=== PATIENT | female | born 1990 | race Caucasian/White ===

== ENCOUNTER 2016-11-13 22:16 | Emergency (ER) | payer OTHER ==
[~2016-11-13] VITALS: Ht 177.8 cm; Wt 98.4 kg
[~2016-11-13 22:16] MED LIST: ALBU8.5H4 IH; AMOX-355 PO; ANTACID; BUTA-234 PO; CAMP85GE TP; CEPH500C PO; CETI10CA PO; CODE118S2 PO; COLE1TAB PO; CPR500T PO; CYCL10TA9 PO; FLT05NA16 NSEACH; FOLI-88 PO; HYDR1TAB PO; METF-380 PO; MTF500T PO; Motrin PO; NAPR-243 PO; NASAL SPRAY; NITR-65 PO; PHEN200T27 PO; PREN1TAB19 PO; SUMA25TA4 PO; TRAM-42 PO; YAZ PO
--- OUTSIDE RECORDS SUMMARY | 2016-11-13 22:24 | XMS REPORT | Continuity of Care Document ---
Author Author [facility] Address Unknown Phone Unavailable Allergies Active Description Code Type Severity Reaction Onset Reported/Identified Relationship to Patient Clinical Status Yes NATURAL LATEX OA 02/08/2010 Yes NATURAL LATEX OA N/A N/A 02/08/2010 Yes Glucophage 1,000 mg tablet Drug Allergy N/A N/A 09/18/2013 Yes latex [id number] Drug Allergy Unknown N/A 05/20/2014 Yes acetaminophen [id number] Drug Allergy Unknown CONFUSION 05/21/2014 Yes butalbital [id number] Drug Allergy Unknown CONFUSION 05/21/2014 Yes caffeine [id number] Drug Allergy Unknown CONFUSION 05/21/2014 Medications Problems Date Dx Coded Attending Type Code Diagnosis Diagnosed By 11/21/2007 MARTI PEARL APRN R 463 TONSILLITIS 11/21/2007 MARTI PEARL APRN R 477.9 Rhinitis Allergic 11/21/2007 MARTI PEARL APRN R 786.2 Cough 11/21/2007 463 TONSILLITIS 11/21/2007 477.9 Rhinitis Allergic 11/21/2007 786.2 Cough 11/21/2007 463 TONSILLITIS 11/21/2007 477.9 Rhinitis Allergic 11/21/2007 786.2 Cough 11/21/2007 CUMMINGS DO ELISEO K 463 TONSILLITIS 11/21/2007 CUMMINGS DO, ELISEO K 477.9 Rhinitis Allergic 11/21/2007 CUMMINGS DO, ELISEO K 786.2 Cough 11/21/2007 FAYE CHAIDEZ APRN 463 TONSILLITIS 11/21/2007 FAYE CHAIDEZ APRN 477.9 Rhinitis Allergic 11/21/2007 FAYE CHAIDEZ APRN 786.2 Cough 11/21/2007 MARTI PEARL APRN R 463 TONSILLITIS 11/21/2007 MARTI PEARL APRN 477.9 Rhinitis Allergic 11/21/2007 MARTI PEARL APRN 786.2 Cough 11/21/2007 FAYE CHAIDEZ APRN T 463 TONSILLITIS 11/21/2007 KAYLYNN FAYE WINSTON T 477.9 Rhinitis Allergic 11/21/2007 KAYLYNN SECURITY SYSTEM ADMINISTRATOR, FAYE T 786.2 Cough 11/21/2007 LEANDRO PEARL APRNRICIA R 463 TONSILLITIS 11/21/2007 PEARL SECURITY SYSTEM ADMINISTRATOR, MARTI R 477.9 Rhinitis Allergic 11/21/2007 PEARL SECURITY SYSTEM ADMINISTRATOR, MARTI R 786.2 Cough 11/21/2007 COSTA CASHERO SECURITY SYSTEM ADMINISTRATOR, MICHELE N 463 TONSILLITIS 11/21/2007 COSTA CASHERO SECURITY SYSTEM ADMINISTRATOR, MICHELE N 477.9 Rhinitis Allergic 11/21/2007 COSTA CASHERO SECURITY SYSTEM ADMINISTRATOR, MICHELE N 786.2 Cough 11/21/2007 HUONG MURPHY MD 463 TONSILLITIS 11/21/2007 HUONG MURPHY MD 477.9 Rhinitis Allergic 11/21/2007 HUONG MURPHY MD 786.2 Cough 11/21/2007 SELAM SECURITY SYSTEM ADMINISTRATOR, JOHNNY A 463 TONSILLITIS 11/21/2007 SELAM SECURITY SYSTEM ADMINISTRATOR, JOHNNY A 477.9 Rhinitis Allergic 11/21/2007 SELAM SECURITY SYSTEM ADMINISTRATOR, JOHNNY A 786.2 Cough 11/21/2007 CUMMINGS DO, ELISEO K 463 TONSILLITIS 11/21/2007 CUMMINGS DO, ELISEO K 477.9 Rhinitis Allergic 11/21/2007 CUMMINGS DO, ELISEO K 786.2 Cough 11/21/2007 CUMMINGS DO, ELISEO K 463 TONSILLITIS 11/21/2007 CUMMINGS DO, ELISEO K 477.9 Rhinitis Allergic 11/21/2007 CUMMINGS DO, ELISEO K 786.2 Cough 11/21/2007 CB OROSCO APRN 463 TONSILLITIS 11/21/2007 OROSCO CB WINSTON 477.9 Rhinitis Allergic 11/21/2007 OROSCO CB WINSTON 786.2 Cough 11/21/2007 CUMMINGS DO, ELISEO K 463 TONSILLITIS 11/21/2007 CUMMINGS DO, ELISEO K 477.9 Rhinitis Allergic 11/21/2007 CUMMINGS DO, ELISEO K 786.2 Cough 02/20/2008 LEANDRO PEARL APRNRICIA R 787.20 Dysphagia Unspecified 02/20/2008 787.20 Dysphagia Unspecified 02/20/2008 787.20 Dysphagia Unspecified 02/20/2008 CUMMINGS DO, ELISEO K 787.20 Dysphagia Unspecified 02/20/2008 FAYE CHAIDEZ APRN T 787.20 Dysphagia Unspecified 02/20/2008 MARTI PEARL APRN R 787.20 Dysphagia Unspecified 02/20/2008 FAYE CHAIDEZ APRN T 787.20 Dysphagia Unspecified 02/20/2008 MARTI PEARL APRN R 787.20 Dysphagia Unspecified 02/20/2008 MICHELE FREDERICK APRN N 787.20 Dysphagia Unspecified 02/20/2008 HUONG MURPHY MD 787.20 Dysphagia Unspecified 02/20/2008 JOHNNY DOSS APRN A 787.20 Dysphagia Unspecified 02/20/2008 CUMMINGS DO, ELISEO K 787.20 Dysphagia Unspecified 02/20/2008 CUMMINGS DO, ELISEO K 787.20 Dysphagia Unspecified 02/20/2008 CB OROSCO APRN 787.20 Dysphagia Unspecified 02/20/2008 CUMMINGS DO, ELISEO K 787.20 Dysphagia Unspecified 03/20/2008 MARTI PEARL APRN R 251.1 PANCREATIC B ISLET CELL HYPERPLASIA 03/20/2008 251.1 PANCREATIC B ISLET CELL HYPERPLASIA 03/20/2008 251.1 PANCREATIC B ISLET CELL HYPERPLASIA 03/20/2008 CUMMINGS DO, ELISEO K 251.1 PANCREATIC B ISLET CELL HYPERPLASIA 03/20/2008 FAYE CHAIDEZ APRN T 251.1 PANCREATIC B ISLET CELL HYPERPLASIA 03/20/2008 MARTI PEARL APRN R 251.1 PANCREATIC B ISLET CELL HYPERPLASIA 03/20/2008 FAYE CHAIDEZ APRN 251.1 PANCREATIC B ISLET CELL HYPERPLASIA 03/20/2008 MARTI PEARL APRN R 251.1 PANCREATIC B ISLET CELL HYPERPLASIA 03/20/2008 MICHELE FREDERICK APRN N 251.1 PANCREATIC B ISLET CELL HYPERPLASIA 03/20/2008 HUONG MURPHY MD 251.1 PANCREATIC B ISLET CELL HYPERPLASIA 03/20/2008 JOHNNY DOSS APRN A 251.1 PANCREATIC B ISLET CELL HYPERPLASIA 03/20/2008 CUMMINGS DO, ELISEO K 251.1 PANCREATIC B ISLET CELL HYPERPLASIA 03/20/2008 CUMMINGS DO, ELISEO K 251.1 PANCREATIC B ISLET CELL HYPERPLASIA 03/20/2008 CB OROSCO APRN 251.1 PANCREATIC B ISLET CELL HYPERPLASIA 03/20/2008 CUMMINGS ELISEO SHEPHERD K 251.1 PANCREATIC B ISLET CELL HYPERPLASIA 05/01/2008 MARTI PEARL APRN R 462 Pharyngitis Acute 05/01/2008 462 Pharyngitis Acute 05/01/2008 462 Pharyngitis Acute 05/01/2008 CUMMINGS DO ELISEO K 462 Pharyngitis Acute 05/01/2008 FAYE CHAIDEZ APRN 462 Pharyngitis Acute 05/01/2008 MARTI PEARL APRN R 462 Pharyngitis Acute 05/01/2008 FAYE CHAIDEZ APRN 462 Pharyngitis Acute 05/01/2008 MARTI PEARL APRN 462 Pharyngitis Acute 05/01/2008 MICHELE FREDERICK APRN 462 Pharyngitis Acute 05/01/2008 HUONG MURPHY MD 462 Pharyngitis Acute 05/01/2008 JOHNNY DOSS APRN 462 Pharyngitis Acute 05/01/2008 CUMMINGS DO, ELISEO K 462 Pharyngitis Acute 05/01/2008 CUMMINGS DO, ELISEO K 462 Pharyngitis Acute 05/01/2008 CB OROSCO APRN 462 Pharyngitis Acute 05/01/2008 CUMMINGS DO, ELISEO K 462 Pharyngitis Acute 08/07/2008 MARTI PEARL APRN R 845.00 Sprain/strain Ankle 08/07/2008 845.00 Sprain/strain Ankle 08/07/2008 845.00 Sprain/strain Ankle 08/07/2008 AIME CUMMINGS DOA K 845.00 Sprain/strain Ankle 08/07/2008 FAYE CHAIDEZ APRN 845.00 Sprain/strain Ankle 08/07/2008 MARTI PEARL APRN 845.00 Sprain/strain Ankle 08/07/2008 FAYE CHAIDEZ APRN 845.00 Sprain/strain Ankle 08/07/2008 MARTI PEARL APRN 845.00 Sprain/strain Ankle 08/07/2008 MICHELE FREDERICK APRN N 845.00 Sprain/strain Ankle 08/07/2008 HUONG MURPHY MD 845.00 Sprain/strain Ankle 08/07/2008 SELAMJOHNNY Franklin APRN 845.00 Sprain/strain Ankle 08/07/2008 ELISEO CUMMINGS DO K 845.00 Sprain/strain Ankle 08/07/2008 CUMMINGS ELISEO SHEPHERD K 845.00 Sprain/strain Ankle 08/07/2008 OROSCO CATRACHITO CB J 845.00 Sprain/strain Ankle 08/07/2008 ELISEO CUMMINGS DO K 845.00 Sprain/strain Ankle 12/07/2008 MARTI PEARL APRN R 626.4 irregular length of menstrual periods 12/07/2008 MARTI PEARL APRN R V25.49 Gynecologic Service Prescrip Of Contracept Agent - Repeat Rx 12/07/2008 626.4 irregular length of menstrual periods 12/07/2008 V25.49 Gynecologic Service Prescrip Of Contracept Agent - Repeat Rx 12/07/2008 626.4 irregular length of menstrual periods 12/07/2008 V25.49 Gynecologic Service Prescrip Of Contracept Agent - Repeat Rx 12/07/2008 ELISEO CUMMINGS DO 626.4 irregular length of menstrual periods 12/07/2008 ELISEO CUMMINGS DO V25.49 Gynecologic Service Prescrip Of Contracept Agent - Repeat Rx 12/07/2008 FAYE CHAIDEZ APRN 626.4 irregular length of menstrual periods 12/07/2008 FAYE CHAIDEZ APRN V25.49 Gynecologic Service Prescrip Of Contracept Agent - Repeat Rx 12/07/2008 MARTI PEARL APRN R 626.4 irregular length of menstrual periods 12/07/2008 MARTI PEARL APRN R V25.49 Gynecologic Service Prescrip Of Contracept Agent - Repeat Rx 12/07/2008 FAYE CHAIDEZ APRN 626.4 irregular length of menstrual periods 12/07/2008 FAYE CHAIDEZ APRN V25.49 Gynecologic Service Prescrip Of Contracept Agent - Repeat Rx 12/07/2008 MARTI PEARL APRN R 626.4 irregular length of menstrual periods 12/07/2008 MARTI PEARL APRN R V25.49 Gynecologic Service Prescrip Of Contracept Agent - Repeat Rx 12/07/2008 MICHELE FREDERICK APRN 626.4 irregular length of menstrual periods 12/07/2008 MICHELE FREDERICK APRN V25.49 Gynecologic Service Prescrip Of Contracept Agent - Repeat Rx 12/07/2008 HUONG MURPHY MD 626.4 irregular length of menstrual periods 12/07/2008 HUONG MURPHY MD V25.49 Gynecologic Service Prescrip Of Contracept Agent - Repeat Rx 12/07/2008 JOHNNY DOSS APRN A 626.4 irregular length of menstrual periods 12/07/2008 JOHNNY DOSS APRN V25.49 Gynecologic Service Prescrip Of Contracept Agent - Repeat Rx 12/07/2008 ELISEO CUMMINGS DO 626.4 irregular length of menstrual periods 12/07/2008 ELISEO CUMMINGS DO V25.49 Gynecologic Service Prescrip Of Contracept Agent - Repeat Rx 12/07/2008 ELISEO CUMMINGS DO 626.4 irregular length of menstrual periods 12/07/2008 ELISEO CUMMINGS DO V25.49 Gynecologic Service Prescrip Of Contracept Agent - Repeat Rx 12/07/2008 CB OROSCO APRN 626.4 irregular length of menstrual periods 12/07/2008 CB OROSCO APRN V25.49 Gynecologic Service Prescrip Of Contracept Agent - Repeat Rx 12/07/2008 ELISEO CUMMINGS DO 626.4 irregular length of menstrual periods 12/07/2008 ELISEO CUMMINGS DO V25.49 Gynecologic Service Prescrip Of Contracept Agent - Repeat Rx 01/16/2009 MARTI PEARL APRN R 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 01/16/2009 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 01/16/2009 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 01/16/2009 ELISEO CUMMINGS DO 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 01/16/2009 FAYE CHAIDEZ APRN 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 01/16/2009 MARTI PEARL APRN R 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 01/16/2009 FAYE CHAIDEZ APRN 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 01/16/2009 MARTI PEARL APRN R 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 01/16/2009 MICHELE FREDERICK APRN 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 01/16/2009 HUONG MURPHY MD 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 01/16/2009 JOHNNY DOSS APRN 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 01/16/2009 ELISEO CUMMINGS DO K 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 01/16/2009 ELISEO CUMMINGS DO K 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 01/16/2009 CB OROSCO APRN 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 01/16/2009 ELISEO CUMMINGS DO K 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 02/08/2009 MARTI PEARL APRN R 616.10 Vaginitis Vulvovaginitis Unspecified 02/08/2009 616.10 Vaginitis Vulvovaginitis Unspecified 02/08/2009 616.10 Vaginitis Vulvovaginitis Unspecified 02/08/2009 ELISEO CUMMINGS DO K 616.10 Vaginitis Vulvovaginitis Unspecified 02/08/2009 FAYE CHAIDEZ APRN 616.10 Vaginitis Vulvovaginitis Unspecified 02/08/2009 MARTI PEARL APRN R 616.10 Vaginitis Vulvovaginitis Unspecified 02/08/2009 FAYE CHAIDEZ APRN 616.10 Vaginitis Vulvovaginitis Unspecified 02/08/2009 MARTI PEARL APRN R 616.10 Vaginitis Vulvovaginitis Unspecified 02/08/2009 MICHELE FREDERICK APRN 616.10 Vaginitis Vulvovaginitis Unspecified 02/08/2009 HUONG MURPHY MD 616.10 Vaginitis Vulvovaginitis Unspecified 02/08/2009 JOHNNY DOSS APRN A 616.10 Vaginitis Vulvovaginitis Unspecified 02/08/2009 ELISEO CUMMINGS DO K 616.10 Vaginitis Vulvovaginitis Unspecified 02/08/2009 AIME CUMMINGS DOA K 616.10 Vaginitis Vulvovaginitis Unspecified 02/08/2009 CB OROSCO APRN 616.10 Vaginitis Vulvovaginitis Unspecified 02/08/2009 AIME CUMMINGS DOA K 616.10 Vaginitis Vulvovaginitis Unspecified 09/16/2009 MARTI PEARL APRN R 536.8 Dyspepsia And Other Specified Disorders Of Function Of Stomach 09/16/2009 536.8 Dyspepsia And Other Specified Disorders Of Function Of Stomach 09/16/2009 536.8 Dyspepsia And Other Specified Disorders Of Function Of Stomach 09/16/2009 ELISEO CUMMINGS DO 536.8 Dyspepsia And Other Specified Disorders Of Function Of Stomach 09/16/2009 FAYE CHAIDEZ APRN 536.8 Dyspepsia And Other Specified Disorders Of Function Of Stomach 09/16/2009 MARTI PEARL APRN R 536.8 Dyspepsia And Other Specified Disorders Of Function Of Stomach 09/16/2009 FAYE CHAIDEZ APRN 536.8 Dyspepsia And Other Specified Disorders Of Function Of Stomach 09/16/2009 MARTI PEARL APRN 536.8 Dyspepsia And Other Specified Disorders Of Function Of Stomach 09/16/2009 MICHELE FREDERICK APRN 536.8 Dyspepsia And Other Specified Disorders Of Function Of Stomach 09/16/2009 HUONG MURPHY MD 536.8 Dyspepsia And Other Specified Disorders Of Function Of Stomach 09/16/2009 JOHNNY DOSS APRN 536.8 Dyspepsia And Other Specified Disorders Of Function Of Stomach 09/16/2009 ELISEO CUMMINGS DO 536.8 Dyspepsia And Other Specified Disorders Of Function Of Stomach 09/16/2009 ELISEO CUMMINGS DO K 536.8 Dyspepsia And Other Specified Disorders Of Function Of Stomach 09/16/2009 CB OROSCO APRN 536.8 Dyspepsia And Other Specified Disorders Of Function Of Stomach 09/16/2009 ELISEO CUMMINGS DO 536.8 Dyspepsia And Other Specified Disorders Of Function Of Stomach 12/19/2009 MARTI PEARL APRN 493.90 Asthma, Unspecified, Unspecified 12/19/2009 493.90 Asthma, Unspecified, Unspecified 12/19/2009 493.90 Asthma, Unspecified, Unspecified 12/19/2009 ELISEO CUMMINGS DO 493.90 Asthma, Unspecified, Unspecified 12/19/2009 FAYE CHAIDEZ APRN 493.90 Asthma, Unspecified, Unspecified 12/19/2009 MARTI PEARL APRN 493.90 Asthma, Unspecified, Unspecified 12/19/2009 FAYE CHAIDEZ APRN 493.90 Asthma, Unspecified, Unspecified 12/19/2009 MARTI PEARL APRN 493.90 Asthma, Unspecified, Unspecified 12/19/2009 JULISSA PICHARDO APRN, MICHELE Franklin 493.90 Asthma, Unspecified, Unspecified 12/19/2009 KATHERINE DALE, HUONG 493.90 Asthma, Unspecified, Unspecified 12/19/2009 SELAM WINSTON, JOHNNY Mattson 493.90 Asthma, Unspecified, Unspecified 12/19/2009 ELISEO CUMMINGS DO 493.90 Asthma, Unspecified, Unspecified 12/19/2009 ELISEO CUMMINGS DO 493.90 Asthma, Unspecified, Unspecified 12/19/2009 KWESI WINSTON, CB Elias 493.90 Asthma, Unspecified, Unspecified 12/19/2009 LEISEO CUMMINGS DO K 493.90 Asthma, Unspecified, Unspecified 12/25/2009 MARTI PEARL APRN R 790.29 Other Abnormal Glucose 12/25/2009 MARTI PEARL APRN R V25.09 Encounter For Contraceptive Management, Other General Counseling And Advice 12/25/2009 MARTI PEARL APRN R V65.45 Counseling On Other Sexually Transmitted Diseases 12/25/2009 790.29 Other Abnormal Glucose 12/25/2009 V25.09 Encounter For Contraceptive Management, Other General Counseling And Advice 12/25/2009 V65.45 Counseling On Other Sexually Transmitted Diseases 12/25/2009 790.29 Other Abnormal Glucose 12/25/2009 V25.09 Encounter For Contraceptive Management, Other General Counseling And Advice 12/25/2009 V65.45 Counseling On Other Sexually Transmitted Diseases 12/25/2009 ELISEO CUMMINGS DO K 790.29 Other Abnormal Glucose 12/25/2009 AIME CUMMINGS DOA K V25.09 Encounter For Contraceptive Management, Other General Counseling And Advice 12/25/2009 AIME CUMMINGS DOA K V65.45 Counseling On Other Sexually Transmitted Diseases 12/25/2009 FAYE CHAIDEZ APRN 790.29 Other Abnormal Glucose 12/25/2009 FAYE CHAIDEZ APRN V25.09 Encounter For Contraceptive Management, Other General Counseling And Advice 12/25/2009 FAYE CHAIDEZ APRN V65.45 Counseling On Other Sexually Transmitted Diseases 12/25/2009 MARTI PEARL APRN 790.29 Other Abnormal Glucose 12/25/2009 DINESH PEARL APRNIA R V25.09 Encounter For Contraceptive Management, Other General Counseling And Advice 12/25/2009 MARTI PEARL APRN R V65.45 Counseling On Other Sexually Transmitted Diseases 12/25/2009 FAYE CHAIDEZ APRN 790.29 Other Abnormal Glucose 12/25/2009 FAYE CHAIDEZ APRN V25.09 Encounter For Contraceptive Management, Other General Counseling And Advice 12/25/2009 FAYE CHAIDEZ APRN V65.45 Counseling On Other Sexually Transmitted Diseases 12/25/2009 MARTI PEARL APRN R 790.29 Other Abnormal Glucose 12/25/2009 DINESH PEARL APRNIA R V25.09 Encounter For Contraceptive Management, Other General Counseling And Advice 12/25/2009 MARTI PEARL APRN R V65.45 Counseling On Other Sexually Transmitted Diseases 12/25/2009 MICHELE FREDERICK APRN N 790.29 Other Abnormal Glucose 12/25/2009 MICHELE FREDERICK APRN N V25.09 Encounter For Contraceptive Management, Other General Counseling And Advice 12/25/2009 MICHELE FREDERICK APRN N V65.45 Counseling On Other Sexually Transmitted Diseases 12/25/2009 HUONG MURPHY MD 790.29 Other Abnormal Glucose 12/25/2009 HUONG MURPHY MD V25.09 Encounter For Contraceptive Management, Other General Counseling And Advice 12/25/2009 HUONG MURPHY MD V65.45 Counseling On Other Sexually Transmitted Diseases 12/25/2009 JOHNNY DOSS APRN A 790.29 Other Abnormal Glucose 12/25/2009 JOHNNY DOSS APRN A V25.09 Encounter For Contraceptive Management, Other General Counseling And Advice 12/25/2009 JOHNNY DOSS APRN A V65.45 Counseling On Other Sexually Transmitted Diseases 12/25/2009 ZOILA SHEPHERD ELISEO K 790.29 Other Abnormal Glucose 12/25/2009 CUMMINGS DO ELISEO K V25.09 Encounter For Contraceptive Management, Other General Counseling And Advice 12/25/2009 ZOILA SHEPHERD ELISEO K V65.45 Counseling On Other Sexually Transmitted Diseases 12/25/2009 CUMMINGS DO ELISEO K 790.29 Other Abnormal Glucose 12/25/2009 CUMMINGS DO ELISEO K V25.09 Encounter For Contraceptive Management, Other General Counseling And Advice 12/25/2009 ELISEO CUMMINGS DO V65.45 Counseling On Other Sexually Transmitted Diseases 12/25/2009 CB OROSCO APRN 790.29 Other Abnormal Glucose 12/25/2009 CB OROSCO APRN V25.09 Encounter For Contraceptive Management , Other General Counseling And Advice 12/25/2009 CB OROSCO APRN V65.45 Counseling On Other Sexually Transmitted Diseases 12/25/2009 ELISEO CUMMINGS DO 790.29 Other Abnormal Glucose 12/25/2009 ELISEO CUMMINGS DO K V25.09 Encounter For Contraceptive Management, Other General Counseling And Advice 12/25/2009 ELISEO CUMMINGS DO V65.45 Counseling On Other Sexually Transmitted Diseases 12/26/2009 MARTI PEARL APRN R V01.79 Contact With Or Exposure To Communicable Diseases, Other Viral 12/26/2009 MARTI PEARL APRN R V74.5 Std Screen 12/26/2009 V01.79 Contact With Or Exposure To Communicable Diseases, Other Viral 12/26/2009 V74.5 Std Screen 12/26/2009 V01.79 Contact With Or Exposure To Communicable Diseases, Other Viral 12/26/2009 V74.5 Std Screen 12/26/2009 ELISEO CUMMINGS DO K V01.79 Contact With Or Exposure To Communicable Diseases, Other Viral 12/26/2009 ELISEO CUMMINGS DO K V74.5 Std Screen 12/26/2009 FAYE CHAIDEZ APRN V01.79 Contact With Or Exposure To Communicable Diseases, Other Viral 12/26/2009 FAYE CHAIDEZ APRN V74.5 Std Screen 12/26/2009 MARTI PEARL APRN R V01.79 Contact With Or Exposure To Communicable Diseases, Other Viral 12/26/2009 DINESH PEARL APRNIA R V74.5 Std Screen 12/26/2009 FAYE CHAIDEZ APRN V01.79 Contact With Or Exposure To Communicable Diseases, Other Viral 12/26/2009 FAYE CHAIDEZ APRN V74.5 Std Screen 12/26/2009 MARTI PEARL APRN R V01.79 Contact With Or Exposure To Communicable Diseases, Other Viral 12/26/2009 MARTI PEARL APRN R V74.5 Std Screen 12/26/2009 COSTA CASHERO SECURITY SYSTEM ADMINISTRATOR, MICHELE N V01.79 Contact With Or Exposure To Communicable Diseases, Other Viral 12/26/2009 JULISSA PICHARDO APRN, MICHELE Franklin V74.5 Std Screen 12/26/2009 HUONG MURPHY MD V01.79 Contact With Or Exposure To Communicable Diseases, Other Viral 12/26/2009 HUONG MURPHY MD V74.5 Std Screen 12/26/2009 SELAM WINSTON, JOHNNY A V01.79 Contact With Or Exposure To Communicable Diseases, Other Viral 12/26/2009 SELAM WINSTON, JOHNNY A V74.5 Std Screen 12/26/2009 CUMMINGS DO, ELISEO K V01.79 Contact With Or Exposure To Communicable Diseases, Other Viral 12/26/2009 CUMMINGS DO, ELISEO K V74.5 Std Screen 12/26/2009 CUMMINGS DO, ELISEO K V01.79 Contact With Or Exposure To Communicable Diseases, Other Viral 12/26/2009 CUMMINGS DO, ELISEO K V74.5 Std Screen 12/26/2009 CB OROSCO APRN V01.79 Contact With Or Exposure To Communicable Diseases, Other Viral 12/26/2009 CB OROSCO APRN V74.5 Std Screen 12/26/2009 CUMMINGS DO, ELISEO K V01.79 Contact With Or Exposure To Communicable Diseases, Other Viral 12/26/2009 CUMMINGS DO, ELISEO K V74.5 Std Screen 01/06/2010 MARTI PEARL APRN R 599.0 Urinary Tract Infection Site Not Specified 01/06/2010 MARTI PEARL APRN R 616.0 Cervicitis And Endocervicitis 01/06/2010 599.0 Urinary Tract Infection Site Not Specified 01/06/2010 616.0 Cervicitis And Endocervicitis 01/06/2010 599.0 Urinary Tract Infection Site Not Specified 01/06/2010 616.0 Cervicitis And Endocervicitis 01/06/2010 CUMMINGS DO, ELISEO K 599.0 Urinary Tract Infection Site Not Specified 01/06/2010 CUMMINGS DO, ELISEO K 616.0 Cervicitis And Endocervicitis 01/06/2010 FAYE CHAIDEZ APRN 599.0 Urinary Tract Infection Site Not Specified 01/06/2010 FAYE CHAIEDZ APRN 616.0 Cervicitis And Endocervicitis 01/06/2010 MARTI PEARL APRN R 599.0 Urinary Tract Infection Site Not Specified 01/06/2010 MARTI PERAL APRN R 616.0 Cervicitis And Endocervicitis 01/06/2010 FAYE CHAIDEZ APRN T 599.0 Urinary Tract Infection Site Not Specified 01/06/2010 FAYE CHAIDEZ APRN T 616.0 Cervicitis And Endocervicitis 01/06/2010 MARTI PEARL APRN R 599.0 Urinary Tract Infection Site Not Specified 01/06/2010 DINESH PEARL APRNIA R 616.0 Cervicitis And Endocervicitis 01/06/2010 JULISSA PICHARDO APRN, MICHELE N 599.0 Urinary Tract Infection Site Not Specified 01/06/2010 JULISSA PICHARDO APRN, MICHELE N 616.0 Cervicitis And Endocervicitis 01/06/2010 HUONG MURPHY MD 599.0 Urinary Tract Infection Site Not Specified 01/06/2010 HUONG MURPHY MD 616.0 Cervicitis And Endocervicitis 01/06/2010 SELAM PANTOJAN, JOHNNY A 599.0 Urinary Tract Infection Site Not Specified 01/06/2010 SELAM WINSTON, JOHNNY A 616.0 Cervicitis And Endocervicitis 01/06/2010 ZOILA DO, ELISEO K 599.0 Urinary Tract Infection Site Not Specified 01/06/2010 ZOILA DO, ELISEO K 616.0 Cervicitis And Endocervicitis 01/06/2010 AIME CUMMINGS DOA K 599.0 Urinary Tract Infection Site Not Specified 01/06/2010 ZOILA SHEPHERD ELISEO K 616.0 Cervicitis And Endocervicitis 01/06/2010 CB OROSCO APRN 599.0 Urinary Tract Infection Site Not Specified 01/06/2010 CB OROSCO APRN 616.0 Cervicitis And Endocervicitis 01/06/2010 AIME CUMMINGS DOA K 599.0 Urinary Tract Infection Site Not Specified 01/06/2010 ZOILA DO ELISEO K 616.0 Cervicitis And Endocervicitis 02/08/2010 MARTI PEARL APRN R V69.2 High-risk Sexual Behavior 02/08/2010 PEARL SECURITY SYSTEM ADMINISTRATOR, MARTI R V72.31 Hydrology Technician Exam, Routine 02/08/2010 V69.2 High-risk Sexual Behavior 02/08/2010 V72.31 Hydrology Technician Exam, Routine 02/08/2010 V69.2 High-risk Sexual Behavior 02/08/2010 V72.31 Hydrology Technician Exam, Routine 02/08/2010 CUMMINGS DO, ELISEO K V69.2 High-risk Sexual Behavior 02/08/2010 CUMMINGS DO, ELISEO K V72.31 Hydrology Technician Exam, Routine 02/08/2010 FAYE CHAIDEZ APRN V69.2 High-risk Sexual Behavior 02/08/2010 FAYE CHAIDEZ APRN V72.31 Hydrology Technician Exam, Routine 02/08/2010 DINESH PEARL APRNIA R V69.2 High-risk Sexual Behavior 02/08/2010 MARTI PEARL APRN R V72.31 Hydrology Technician Exam, Routine 02/08/2010 FAYE CHAIDEZ APRN V69.2 High-risk Sexual Behavior 02/08/2010 FAYE CHAIDEZ APRN V72.31 Hydrology Technician Exam, Routine 02/08/2010 DINESH PEARL APRNIA R V69.2 High-risk Sexual Behavior 02/08/2010 DINESH PEARL APRNIA R V72.31 Hydrology Technician Exam, Routine 02/08/2010 MICHELE FREDERICK APRN N V69.2 High-risk Sexual Behavior 02/08/2010 MICHELE FREDERICK APRN N V72.31 Hydrology Technician Exam, Routine 02/08/2010 HUONG MURPHY MD V69.2 High-risk Sexual Behavior 02/08/2010 HUONG MURPHY MD V72.31 Hydrology Technician Exam, Routine 02/08/2010 SELAM WINSTON JOHNNY A V69.2 High-risk Sexual Behavior 02/08/2010 SELAM WINSTON JOHNNY A V72.31 Hydrology Technician Exam, Routine 02/08/2010 CUMMINGS DO, ELISEO K V69.2 High-risk Sexual Behavior 02/08/2010 CUMMINGS DO, ELISEO K V72.31 Hydrology Technician Exam, Routine 02/08/2010 CUMMINGS DO, ELISEO K V69.2 High-risk Sexual Behavior 02/08/2010 CUMMINGS DO, ELISEO K V72.31 Hydrology Technician Exam, Routine 02/08/2010 CB OROSCO APRN V69.2 High-risk Sexual Behavior 02/08/2010 CB OROSCO APRN V72.31 Hydrology Technician Exam, Routine 02/08/2010 CUMMINGS DO ELISEO K V69.2 High-risk Sexual Behavior 02/08/2010 CUMMINGS DO ELISEO K V72.31 Hydrology Technician Exam, Routine 03/31/2010 MARTI PEARL APRN R 692.9 Dermatitis Contact Unspecified 03/31/2010 692.9 Dermatitis Contact Unspecified 03/31/2010 692.9 Dermatitis Contact Unspecified 03/31/2010 CUMMINGS DO ELISEO K 692.9 Dermatitis Contact Unspecified 03/31/2010 FAYE CHAIDEZ APRN 692.9 Dermatitis Contact Unspecified 03/31/2010 MARTI PEARL APRN 692.9 Dermatitis Contact Unspecified 03/31/2010 FAYE CHAIDEZ APRN 692.9 Dermatitis Contact Unspecified 03/31/2010 MARTI PEARL APRN R 692.9 Dermatitis Contact Unspecified 03/31/2010 MICHELE FREDERICK APRN N 692.9 Dermatitis Contact Unspecified 03/31/2010 HUONG MURPHY MD 692.9 Dermatitis Contact Unspecified 03/31/2010 JOHNNY DOSS APRN 692.9 Dermatitis Contact Unspecified 03/31/2010 CUMMINGS DO ELISEO K 692.9 Dermatitis Contact Unspecified 03/31/2010 CUMMINGS DO ELISEO K 692.9 Dermatitis Contact Unspecified 03/31/2010 CB OROSCO APRN 692.9 Dermatitis Contact Unspecified 03/31/2010 CUMMINGS DO ELISEO K 692.9 Dermatitis Contact Unspecified 04/08/2010 MARTI PEARL APRN R 465.9 Upper Respiratory Infection 04/08/2010 465.9 Upper Respiratory Infection 04/08/2010 465.9 Upper Respiratory Infection 04/08/2010 AIME CUMMINGS DOA K 465.9 Upper Respiratory Infection 04/08/2010 FAYE CHAIDEZ APRN 465.9 Upper Respiratory Infection 04/08/2010 MARTI PEARL APRN R 465.9 Upper Respiratory Infection 04/08/2010 FAYE CHAIDEZ APRN 465.9 Upper Respiratory Infection 04/08/2010 MARTI PEARL APRN R 465.9 Upper Respiratory Infection 04/08/2010 MICHELE FREDERICK APRN N 465.9 Upper Respiratory Infection 04/08/2010 HUONG MURPHY MD 465.9 Upper Respiratory Infection 04/08/2010 JOHNNY DOSS APRN 465.9 Upper Respiratory Infection 04/08/2010 CUMMINGS ELISEO SHEPHERD K 465.9 Upper Respiratory Infection 04/08/2010 CUMMINGS DO ELISEO K 465.9 Upper Respiratory Infection 04/08/2010 CB OROSCO APRN 465.9 Upper Respiratory Infection 04/08/2010 CUMMINGS DOAIMEA K 465.9 Upper Respiratory Infection 04/11/2010 MARTI PEARL APRN R 381.81 Eustachian Tube Dysfunction 04/11/2010 MARTI PEARL APRN R 388.70 Otalgia Unspecified 04/11/2010 381.81 Eustachian Tube Dysfunction 04/11/2010 388.70 Otalgia Unspecified 04/11/2010 381.81 Eustachian Tube Dysfunction 04/11/2010 388.70 Otalgia Unspecified 04/11/2010 AIME CUMMINGS DOA K 381.81 Eustachian Tube Dysfunction 04/11/2010 AIME CUMMINGS DOA K 388.70 Otalgia Unspecified 04/11/2010 FAYE CHAIDEZ APRN 381.81 Eustachian Tube Dysfunction 04/11/2010 FAYE CHAIDEZ APRN 388.70 Otalgia Unspecified 04/11/2010 DINESH PEARL APRNIA R 381.81 Eustachian Tube Dysfunction 04/11/2010 DINESH PEARL APRNIA R 388.70 Otalgia Unspecified 04/11/2010 FAYE CHAIDEZ APRN 381.81 Eustachian Tube Dysfunction 04/11/2010 FAYE CHAIDEZ APRN 388.70 Otalgia Unspecified 04/11/2010 LEANDRO PEARL APRNRICIA R 381.81 Eustachian Tube Dysfunction 04/11/2010 DINESH PEARL APRNIA R 388.70 Otalgia Unspecified 04/11/2010 MICHELE FREDERICK APRN N 381.81 Eustachian Tube Dysfunction 04/11/2010 MICHELE FREDERICK APRN N 388.70 Otalgia Unspecified 04/11/2010 HUONG MURPHY MD 381.81 Eustachian Tube Dysfunction 04/11/2010 HUONG MURPHY MD 388.70 Otalgia Unspecified 04/11/2010 JOHNNY DOSS APRN A 381.81 Eustachian Tube Dysfunction 04/11/2010 JOHNNY DOSS APRN A 388.70 Otalgia Unspecified 04/11/2010 CUMMINGS DO, ELISEO K 381.81 Eustachian Tube Dysfunction 04/11/2010 CUMMINGS DO, ELISEO K 388.70 Otalgia Unspecified 04/11/2010 CUMMINGS DO, ELISEO K 381.81 Eustachian Tube Dysfunction 04/11/2010 CUMMINGS DO, ELISEO K 388.70 Otalgia Unspecified 04/11/2010 CB OROSCO APRN 381.81 Eustachian Tube Dysfunction 04/11/2010 CB OROSCO APRN 388.70 Otalgia Unspecified 04/11/2010 CUMMINGS DO, ELISEO K 381.81 Eustachian Tube Dysfunction 04/11/2010 CUMMINGS DO, ELISOE K 388.70 Otalgia Unspecified 06/30/2010 MARTI PEARL APRN R 311 Depressive Disorder Not Elsewhere Classified 06/30/2010 311 Depressive Disorder Not Elsewhere Classified 06/30/2010 311 Depressive Disorder Not Elsewhere Classified 06/30/2010 CUMMINGS DO, ELISEO K 311 Depressive Disorder Not Elsewhere Classified 06/30/2010 FAYE CHAIDEZ APRN 311 Depressive Disorder Not Elsewhere Classified 06/30/2010 MARTI PEARL APRN R 311 Depressive Disorder Not Elsewhere Classified 06/30/2010 FAYE CHAIDEZ APRN 311 Depressive Disorder Not Elsewhere Classified 06/30/2010 MARTI PEARL APRN R 311 Depressive Disorder Not Elsewhere Classified 06/30/2010 MICHELE FREDERICK APRN N 311 Depressive Disorder Not Elsewhere Classified 06/30/2010 HUONG MURPHY MD 311 Depressive Disorder Not Elsewhere Classified 06/30/2010 JOHNNY DOSS APRN A 311 Depressive Disorder Not Elsewhere Classified 06/30/2010 CUMMINGS DO, ELISEO K 311 Depressive Disorder Not Elsewhere Classified 06/30/2010 CUMMINGS DO ELISEO K 311 Depressive Disorder Not Elsewhere Classified 06/30/2010 CB OROSCO APRN 311 Depressive Disorder Not Elsewhere Classified 06/30/2010 CUMMINGS DO, ELISEO K 311 Depressive Disorder Not Elsewhere Classified 03/19/2011 MARTI PEARL APRN R 626.0 AMENORRHEA 03/19/2011 MARTI PEARL APRN R 780.79 Fatigue 03/19/2011 626.0 AMENORRHEA 03/19/2011 780.79 Fatigue 03/19/2011 626.0 AMENORRHEA 03/19/2011 780.79 Fatigue 03/19/2011 CUMMINGS DOAIMEA K 626.0 AMENORRHEA 03/19/2011 CUMMINGS DO ELISEO K 780.79 Fatigue 03/19/2011 FAYE CHAIDEZ APRN T 626.0 AMENORRHEA 03/19/2011 FAYE CHAIDEZ APRN T 780.79 Fatigue 03/19/2011 LEANDRO PEARL APRNRICIA R 626.0 AMENORRHEA 03/19/2011 DAE WINSTON MARTI R 780.79 Fatigue 03/19/2011 FAYE CHAIDEZ APRN T 626.0 AMENORRHEA 03/19/2011 FAYE CHAIDEZ APRN T 780.79 Fatigue 03/19/2011 DINESH PEARL APRNIA R 626.0 AMENORRHEA 03/19/2011 LEANDRO PEARL APRNRICIA R 780.79 Fatigue 03/19/2011 MICHELE FREDERICK APRN N 626.0 AMENORRHEA 03/19/2011 VIKY FREDERICK APRNCY N 780.79 Fatigue 03/19/2011 HUONG MURPHY MD 626.0 AMENORRHEA 03/19/2011 HUONG MURPHY MD 780.79 Fatigue 03/19/2011 JOHNNY DOSS APRN A 626.0 AMENORRHEA 03/19/2011 ENMANUEL DOSS APRNIDI A 780.79 Fatigue 03/19/2011 ELISEO CUMMINGS DO K 626.0 AMENORRHEA 03/19/2011 ELISEO CUMMINGS DO K 780.79 Fatigue 03/19/2011 AIME CUMMINGS DOA K 626.0 AMENORRHEA 03/19/2011 CUMMINGS DO ELISEO K 780.79 Fatigue 03/19/2011 CB OROSCO APRN 626.0 AMENORRHEA 03/19/2011 OROSCO CB WINSTON 780.79 Fatigue 03/19/2011 CUMMINGS AIME SHEPHERDA K 626.0 AMENORRHEA 03/19/2011 CUMMINGS DO ELISEO K 780.79 Fatigue 04/10/2011 MARTI PEARL APRN R 787.02 Nausea 04/10/2011 787.02 Nausea 04/10/2011 787.02 Nausea 04/10/2011 AIME CUMMINGS DOA K 787.02 Nausea 04/10/2011 FAYE CHAIDEZ APRN 787.02 Nausea 04/10/2011 MARTI PEARL APRN R 787.02 Nausea 04/10/2011 FAYE CHAIDEZ APRN 787.02 Nausea 04/10/2011 MARTI PEARL APRN R 787.02 Nausea 04/10/2011 JULISSA PICHARDO CATRACHITO MICHELE Noemi 787.02 Nausea 04/10/2011 HUONG MURPHY MD 787.02 Nausea 04/10/2011 JOHNNY DOSS APRN 787.02 Nausea 04/10/2011 CUMMINGS DO, ELISEO K 787.02 Nausea 04/10/2011 CUMMINGS DO, ELISEO K 787.02 Nausea 04/10/2011 CB OROSCO APRN 787.02 Nausea 04/10/2011 CUMMINGS DO, ELISEO K 787.02 Nausea 04/16/2011 MARTI PEARL APRN R 708.9 Urticaria/hives Unspec 04/16/2011 MARTI PEARL APRN R 995.7 Other Adverse Food Reactions Not Elsewhere Classified 04/16/2011 708.9 Urticaria/hives Unspec 04/16/2011 995.7 Other Adverse Food Reactions Not Elsewhere Classified 04/16/2011 708.9 Urticaria/hives Unspec 04/16/2011 995.7 Other Adverse Food Reactions Not Elsewhere Classified 04/16/2011 CUMMINGS DO, ELISEO K 708.9 Urticaria/hives Unspec 04/16/2011 CUMMINGS DO, ELISEO K 995.7 Other Adverse Food Reactions Not Elsewhere Classified 04/16/2011 FAYE CHAIDEZ APRN 708.9 Urticaria/hives Unspec 04/16/2011 FAYE CHAIDEZ APRN 995.7 Other Adverse Food Reactions Not Elsewhere Classified 04/16/2011 MARTI PEARL APRN R 708.9 Urticaria/hives Unspec 04/16/2011 MARTI PEARL APRN R 995.7 Other Adverse Food Reactions Not Elsewhere Classified 04/16/2011 FAYE CHAIDEZ APRN 708.9 Urticaria/hives Unspec 04/16/2011 FAYE CHAIDEZ APRN 995.7 Other Adverse Food Reactions Not Elsewhere Classified 04/16/2011 MARTI PEARL APRN R 708.9 Urticaria/hives Unspec 04/16/2011 MARTI PEARL APRN R 995.7 Other Adverse Food Reactions Not Elsewhere Classified 04/16/2011 JULISSA KEENBAKARI WINSTON, MICHELE N 708.9 Urticaria/hives Unspec 04/16/2011 JULISSA PICHARDO SECURITY SYSTEM ADMINISTRATOR, MICHELE N 995.7 Other Adverse Food Reactions Not Elsewhere Classified 04/16/2011 HUONG MURPHY MD 708.9 Urticaria/hives Unspec 04/16/2011 HUONG MURPHY MD 995.7 Other Adverse Food Reactions Not Elsewhere Classified 04/16/2011 SELAM SECURITY SYSTEM ADMINISTRATOR, JOHNNY A 708.9 Urticaria/hives Unspec 04/16/2011 SELAM SECURITY SYSTEM ADMINISTRATOR, JOHNNY A 995.7 Other Adverse Food Reactions Not Elsewhere Classified 04/16/2011 CUMMINGS DO, ELISEO K 708.9 Urticaria/hives Unspec 04/16/2011 CUMMINGS DO, ELISEO K 995.7 Other Adverse Food Reactions Not Elsewhere Classified 04/16/2011 CUMMINGS DO, ELISEO K 708.9 Urticaria/hives Unspec 04/16/2011 CUMMINGS DO, ELISEO K 995.7 Other Adverse Food Reactions Not Elsewhere Classified 04/16/2011 CB OROSCO APRN 708.9 Urticaria/hives Unspec 04/16/2011 OROSCO CB WINSTON 995.7 Other Adverse Food Reactions Not Elsewhere Classified 04/16/2011 CUMMINGS DO, ELISEO K 708.9 Urticaria/hives Unspec 04/16/2011 CUMMINGS DO, ELISEO K 995.7 Other Adverse Food Reactions Not Elsewhere Classified 09/01/2011 MARTI PEARL APRN R 461.9 Sinusitis Acute 09/01/2011 MARTI PEARL APRN R V25.02 General Counseling On Initiation Of Other Contraceptive Measures 09/01/2011 MARTI PEARL APRN R V65.42 Counseling - Smoking Cessation 09/01/2011 461.9 Sinusitis Acute 09/01/2011 V25.02 General Counseling On Initiation Of Other Contraceptive Measures 09/01/2011 V65.42 Counseling - Smoking Cessation 09/01/2011 461.9 Sinusitis Acute 09/01/2011 V25.02 General Counseling On Initiation Of Other Contraceptive Measures 09/01/2011 V65.42 Counseling - Smoking Cessation 09/01/2011 CUMMINGS DO, ELISEO K 461.9 Sinusitis Acute 09/01/2011 ELISEO CUMMINGS DO K V25.02 General Counseling On Initiation Of Other Contraceptive Measures 09/01/2011 ELISEO CUMMINGS DO K V65.42 Counseling - Smoking Cessation 09/01/2011 FAYE CHAIDEZ APRN 461.9 Sinusitis Acute 09/01/2011 FAYE CHAIDEZ APRN V25.02 General Counseling On Initiation Of Other Contraceptive Measures 09/01/2011 FAYE CHAIDEZ APRN V65.42 Counseling - Smoking Cessation 09/01/2011 DINESH PEARL APRNIA R 461.9 Sinusitis Acute 09/01/2011 DINESH PEARL APRNIA R V25.02 General Counseling On Initiation Of Other Contraceptive Measures 09/01/2011 MARTI PEARL APRN R V65.42 Counseling - Smoking Cessation 09/01/2011 FAYE CHAIDEZ APRN 461.9 Sinusitis Acute 09/01/2011 FAYE CHAIDEZ APRN V25.02 General Counseling On Initiation Of Other Contraceptive Measures 09/01/2011 FAYE CHAIDEZ APRN V65.42 Counseling - Smoking Cessation 09/01/2011 LEANDRO PEARL APRNRICIA R 461.9 Sinusitis Acute 09/01/2011 LEANDRO PEARL APRNRICIA R V25.02 General Counseling On Initiation Of Other Contraceptive Measures 09/01/2011 LEANDRO PAERL APRNRICIA R V65.42 Counseling - Smoking Cessation 09/01/2011 MICHELE FREDERICK APRN N 461.9 Sinusitis Acute 09/01/2011 VIKY FREDERICK APRNCY N V25.02 General Counseling On Initiation Of Other Contraceptive Measures 09/01/2011 JULISSA PICHARDO APRN MICHELE N V65.42 Counseling - Smoking Cessation 09/01/2011 HUONG MURPHY MD 461.9 Sinusitis Acute 09/01/2011 HUONG MURPHY MD V25.02 General Counseling On Initiation Of Other Contraceptive Measures 09/01/2011 HUONG MURPHY MD V65.42 Counseling - Smoking Cessation 09/01/2011 JOHNNY DOSS APRN 461.9 Sinusitis Acute 09/01/2011 JOHNNY DOSS APRN V25.02 General Counseling On Initiation Of Other Contraceptive Measures 09/01/2011 JOHNNY DOSS APRN V65.42 Counseling - Smoking Cessation 09/01/2011 CUMMINGS AIME SHEPHERDA Esther 461.9 Sinusitis Acute 09/01/2011 CUMMINGS AIME SHEPHERDA K V25.02 General Counseling On Initiation Of Other Contraceptive Measures 09/01/2011 ELISEO CUMMINGS DO V65.42 Counseling - Smoking Cessation 09/01/2011 CUMMINGS ELISEO SHEPHERD 461.9 Sinusitis Acute 09/01/2011 CUMMINGS AIME SHEPHERDA K V25.02 General Counseling On Initiation Of Other Contraceptive Measures 09/01/2011 ELISEO CUMMINGS DO V65.42 Counseling - Smoking Cessation 09/01/2011 CB OROSCO APRN 461.9 Sinusitis Acute 09/01/2011 CB OROSCO APRN V25.02 General Counseling On Initiation Of Other Contraceptive Measures 09/01/2011 CB OROSCO APRN V65.42 Counseling - Smoking Cessation 09/01/2011 ELISEO CUMMINGS DO 461.9 Sinusitis Acute 09/01/2011 ELISEO CUMMINGS DO V25.02 General Counseling On Initiation Of Other Contraceptive Measures 09/01/2011 ELISEO CUMMINGS DO V65.42 Counseling - Smoking Cessation 12/03/2011 MARTI PEARL APRN V25.01 CONTRACEPTION - ORAL CONTRACEPTION 12/03/2011 MARTI PEARL APRN V72.31 LEAD NETWORK ENGINEER EXAM, ROUTINE 12/03/2011 MARTI PEARL APRN V74.5 STD SCREEN 12/03/2011 V25.01 CONTRACEPTION - ORAL CONTRACEPTION 12/03/2011 V72.31 LEAD NETWORK ENGINEER EXAM, ROUTINE 12/03/2011 V74.5 STD SCREEN 12/03/2011 V25.01 CONTRACEPTION - ORAL CONTRACEPTION 12/03/2011 V72.31 LEAD NETWORK ENGINEER EXAM, ROUTINE 12/03/2011 V74.5 STD SCREEN 12/03/2011 ELISEO CUMMINGS DO V25.01 CONTRACEPTION - ORAL CONTRACEPTION 12/03/2011 ELISEO CUMMINSG DO V72.31 LEAD NETWORK ENGINEER EXAM, ROUTINE 12/03/2011 ELISEO CUMMINGS DO V74.5 STD SCREEN 12/03/2011 FAYE CHAIDEZ APRN V25.01 CONTRACEPTION - ORAL CONTRACEPTION 12/03/2011 FAYE CHAIDEZ APRN V72.31 LEAD NETWORK ENGINEER EXAM, ROUTINE 12/03/2011 FAYE CHAIDEZ APRN V74.5 STD SCREEN 12/03/2011 DINESH PEARL APRNIA R V25.01 CONTRACEPTION - ORAL CONTRACEPTION 12/03/2011 DINESH PEARL APRNIA R V72.31 LEAD NETWORK ENGINEER EXAM, ROUTINE 12/03/2011 MARTI PEARL APRN R V74.5 STD SCREEN 12/03/2011 FAYE CHAIDEZ APRN V25.01 CONTRACEPTION - ORAL CONTRACEPTION 12/03/2011 FAYE CHAIDEZ APRN V72.31 LEAD NETWORK ENGINEER EXAM, ROUTINE 12/03/2011 FAYE CHAIDEZ APRN V74.5 STD SCREEN 12/03/2011 MARTI PEARL APRN R V25.01 CONTRACEPTION - ORAL CONTRACEPTION 12/03/2011 DINESH PEARL APRNIA R V72.31 LEAD NETWORK ENGINEER EXAM, ROUTINE 12/03/2011 MARTI PEARL APRN R V74.5 STD SCREEN 12/03/2011 MICHELE FREDERICK APRN V25.01 CONTRACEPTION - ORAL CONTRACEPTION 12/03/2011 MICHELE FREDERICK APRN V72.31 LEAD NETWORK ENGINEER EXAM, ROUTINE 12/03/2011 MICHELE FREDERICK APRN N V74.5 STD SCREEN 12/03/2011 HUONG MURPHY MD V25.01 CONTRACEPTION - ORAL CONTRACEPTION 12/03/2011 HUONG MURPHY MD V72.31 LEAD NETWORK ENGINEER EXAM, ROUTINE 12/03/2011 HUONG MURPHY MD V74.5 STD SCREEN 12/03/2011 JOHNNY DOSS APRN V25.01 CONTRACEPTION - ORAL CONTRACEPTION 12/03/2011 JOHNNY DOSS APRN V72.31 LEAD NETWORK ENGINEER EXAM, ROUTINE 12/03/2011 JOHNNY DOSS APRN V74.5 STD SCREEN 12/03/2011 AIME CUMMINGS DOA Esther V25.01 CONTRACEPTION - ORAL CONTRACEPTION 12/03/2011 AIME CUMMINGS DOA K V72.31 LEAD NETWORK ENGINEER EXAM, ROUTINE 12/03/2011 CUMMINGS AIME SHEPHERDA K V74.5 STD SCREEN 12/03/2011 CUMMINGS AIME SHEPHERDA K V25.01 CONTRACEPTION - ORAL CONTRACEPTION 12/03/2011 CUMMINGS DO ELISEO K V72.31 LEAD NETWORK ENGINEER EXAM, ROUTINE 12/03/2011 CUMMINGS AIME SHEPHERDA K V74.5 STD SCREEN 12/03/2011 CB OROSCO APRN V25.01 CONTRACEPTION - ORAL CONTRACEPTION 12/03/2011 CB OROSCO APRN V72.31 LEAD NETWORK ENGINEER EXAM, ROUTINE 12/03/2011 CB OROSCO APRN V74.5 STD SCREEN 12/03/2011 ELISEO CUMMINGS DO V25.01 CONTRACEPTION - ORAL CONTRACEPTION 12/03/2011 ELISEO CUMMINGS DO V72.31 LEAD NETWORK ENGINEER EXAM, ROUTINE 12/03/2011 ELISEO CUMMINGS DO V74.5 STD SCREEN 12/10/2011 MARTI PEARL APRN 719.49 PAIN IN JOINT INVOLVING MULTIPLE SITES 12/10/2011 719.49 PAIN IN JOINT INVOLVING MULTIPLE SITES 12/10/2011 719.49 PAIN IN JOINT INVOLVING MULTIPLE SITES 12/10/2011 ELISEO CUMMINGS DO 719.49 PAIN IN JOINT INVOLVING MULTIPLE SITES 12/10/2011 FAYE CHAIDEZ APRN 719.49 PAIN IN JOINT INVOLVING MULTIPLE SITES 12/10/2011 MARTI PEARL APRN 719.49 PAIN IN JOINT INVOLVING MULTIPLE SITES 12/10/2011 FAYE CHAIDEZ APRN 719.49 PAIN IN JOINT INVOLVING MULTIPLE SITES 12/10/2011 MARTI PEARL APRN 719.49 PAIN IN JOINT INVOLVING MULTIPLE SITES 12/10/2011 MICHELE FREDERICK APRN 719.49 PAIN IN JOINT INVOLVING MULTIPLE SITES 12/10/2011 HUONG MURPHY MD 719.49 PAIN IN JOINT INVOLVING MULTIPLE SITES 12/10/2011 JOHNNY DOSS APRN 719.49 PAIN IN JOINT INVOLVING MULTIPLE SITES 12/10/2011 ELISEO CUMMINGS DO 719.49 PAIN IN JOINT INVOLVING MULTIPLE SITES 12/10/2011 ELISEO CUMMINGS DO 719.49 PAIN IN JOINT INVOLVING MULTIPLE SITES 12/10/2011 CB OROSCO APRN 719.49 PAIN IN JOINT INVOLVING MULTIPLE SITES 12/10/2011 ELISEO CUMMINGS DO 719.49 PAIN IN JOINT INVOLVING MULTIPLE SITES 01/22/2012 MARTI PEARL APRN 462 sore throat 01/22/2012 MARTI PEARL APRN 780.52 INSOMNIA UNSPECIFIED 01/22/2012 462 sore throat 01/22/2012 780.52 INSOMNIA UNSPECIFIED 01/22/2012 462 sore throat 01/22/2012 780.52 INSOMNIA UNSPECIFIED 01/22/2012 CUMMINGS DO, ELISEO K 462 sore throat 01/22/2012 CUMMINGS DO, ELISEO K 780.52 INSOMNIA UNSPECIFIED 01/22/2012 FAYE CHAIDEZ APRN T 462 sore throat 01/22/2012 FAYE CHAIDEZ APRN 780.52 INSOMNIA UNSPECIFIED 01/22/2012 LEANDRO PEARL APRNRICIA R 462 sore throat 01/22/2012 LEANDOR PEARL APRNRICIA R 780.52 INSOMNIA UNSPECIFIED 01/22/2012 FAYE CHAIDEZ APRN T 462 SORE THROAT 01/22/2012 FAYE CHAIDEZ APRN 780.52 INSOMNIA UNSPECIFIED 01/22/2012 LEANDRO PEARL APRNRICIA R 462 SORE THROAT 01/22/2012 LEANDRO PEARL APRNRICIA R 780.52 INSOMNIA UNSPECIFIED 01/22/2012 VIKY FREDERICK APRNCY N 462 SORE THROAT 01/22/2012 JULISSA PICHARDO APRN MICHELE N 780.52 INSOMNIA UNSPECIFIED 01/22/2012 HUONG MURPHY MD 462 SORE THROAT 01/22/2012 HUONG MURPHY MD 780.52 INSOMNIA UNSPECIFIED 01/22/2012 SELAM WINSTON JOHNNY A 462 SORE THROAT 01/22/2012 SELAMJOEY WINSTON, JOHNNY A 780.52 INSOMNIA UNSPECIFIED 01/22/2012 CUMMINGS DO, ELISEO K 462 SORE THROAT 01/22/2012 CUMMINGS DO, ELISEO K 780.52 INSOMNIA UNSPECIFIED 01/22/2012 CUMMINGS DO, ELISEO K 462 SORE THROAT 01/22/2012 CUMMINGS DO, ELISEO K 780.52 INSOMNIA UNSPECIFIED 01/22/2012 CB OROSCO APRN 462 SORE THROAT 01/22/2012 CB OROSCO APRN 780.52 INSOMNIA UNSPECIFIED 01/22/2012 CUMMINGS DO, ELISEO K 462 SORE THROAT 01/22/2012 CUMMINGS DO, ELISEO K 780.52 INSOMNIA UNSPECIFIED 05/03/2012 MARTI PEARL APRN R 788.1 pain during urination (dysuria) 05/03/2012 788.1 pain during urination (dysuria) 05/03/2012 788.1 pain during urination (dysuria) 05/03/2012 CUMMINGS DO, ELISEO K 788.1 pain during urination (dysuria) 05/03/2012 FAYE CHAIDEZ APRN 788.1 pain during urination (dysuria) 05/03/2012 MARTI PEARL APRN 788.1 pain during urination (dysuria) 05/03/2012 FAYE CHAIDEZ APRN 788.1 PAIN DURING URINATION (DYSURIA) 05/03/2012 MARTI PEARL APRN 788.1 PAIN DURING URINATION (DYSURIA) 05/03/2012 MICHELE FREDERICK APRN 788.1 PAIN DURING URINATION (DYSURIA) 05/03/2012 HUONG MURPHY MD 788.1 PAIN DURING URINATION (DYSURIA) 05/03/2012 JOHNNY DOSS APRN 788.1 PAIN DURING URINATION (DYSURIA) 05/03/2012 ELISEO CUMMINGS DO K 788.1 PAIN DURING URINATION (DYSURIA) 05/03/2012 ELISEO CUMMINGS DO K 788.1 PAIN DURING URINATION (DYSURIA) 05/03/2012 CB OROSCO APRN 788.1 PAIN DURING URINATION (DYSURIA) 05/03/2012 ELISEO CUMMINGS DO K 788.1 PAIN DURING URINATION (DYSURIA) 09/16/2012 Ot 574.20 09/16/2012 Ot 599.0 09/16/2012 Ot 789.00 09/19/2012 574.20 CALCULUS OF GALLBLADDER WITHOUT CHOLECYSTITIS WITHOUT OBSTRUCTION 09/19/2012 634.92 COMPLETE (SAB) 09/19/2012 ELISEO CUMMINGS DO 574.20 CALCULUS OF GALLBLADDER WITHOUT CHOLECYSTITIS WITHOUT OBSTRUCTION 09/19/2012 ELISEO CUMMINGS DO 634.92 COMPLETE (SAB) 09/19/2012 FAYE CHAIDEZ APRN 574.20 CALCULUS OF GALLBLADDER WITHOUT CHOLECYSTITIS WITHOUT OBSTRUCTION 09/19/2012 FAYE CHAIDEZ APRN 634.92 COMPLETE (SAB) 09/19/2012 MARTI PEARL APRN 574.20 CALCULUS OF GALLBLADDER WITHOUT CHOLECYSTITIS WITHOUT OBSTRUCTION 09/19/2012 MARTI PEARL APRN 634.92 COMPLETE (SAB) 09/19/2012 FAYE CHAIDEZ APRN 574.20 CALCULUS OF GALLBLADDER WITHOUT CHOLECYSTITIS WITHOUT OBSTRUCTION 09/19/2012 FAYE CHAIDEZ APRN 634.92 COMPLETE (SAB) 09/19/2012 MARTI PEARL APRN R 574.20 CALCULUS OF GALLBLADDER WITHOUT CHOLECYSTITIS WITHOUT OBSTRUCTION 09/19/2012 MARTI PEARL APRN R 634.92 COMPLETE (SAB) 09/19/2012 MICHELE FREDERICK APRN N 574.20 CALCULUS OF GALLBLADDER WITHOUT CHOLECYSTITIS WITHOUT OBSTRUCTION 09/19/2012 MICHELE FREDERICK APRN N 634.92 COMPLETE (SAB) 09/19/2012 HUONG MURPHY MD 574.20 CALCULUS OF GALLBLADDER WITHOUT CHOLECYSTITIS WITHOUT OBSTRUCTION 09/19/2012 HUONG MURPHY MD 634.92 COMPLETE (SAB) 09/19/2012 JOHNNY DOSS APRN 574.20 CALCULUS OF GALLBLADDER WITHOUT CHOLECYSTITIS WITHOUT OBSTRUCTION 09/19/2012 JOHNNY DOSS APRN 634.92 COMPLETE (SAB) 09/19/2012 ELISEO CUMMINGS DO K 574.20 CALCULUS OF GALLBLADDER WITHOUT CHOLECYSTITIS WITHOUT OBSTRUCTION 09/19/2012 ELISEO CUMMINGS DO K 634.92 COMPLETE (SAB) 09/19/2012 AIME CUMMINGS DOA K 574.20 CALCULUS OF GALLBLADDER WITHOUT CHOLECYSTITIS WITHOUT OBSTRUCTION 09/19/2012 AIME CUMMINGS DOA K 634.92 COMPLETE (SAB) 09/19/2012 CB OROSCO APRN 574.20 CALCULUS OF GALLBLADDER WITHOUT CHOLECYSTITIS WITHOUT OBSTRUCTION 09/19/2012 CB OROSCO APRN 634.92 COMPLETE (SAB) 09/19/2012 AIME CUMMINGS DOA K 574.20 CALCULUS OF GALLBLADDER WITHOUT CHOLECYSTITIS WITHOUT OBSTRUCTION 09/19/2012 AIME CUMMINGS DOA K 634.92 COMPLETE (SAB) 10/10/2012 ZOILA SHEPHERD ELISEO K 575.11 CHOLECYSTITIS, CHRONIC 10/10/2012 FAYE CHAIDEZ APRN 575.11 CHOLECYSTITIS, CHRONIC 10/10/2012 MARTI PEARL APRN 575.11 CHOLECYSTITIS, CHRONIC 10/10/2012 FAYE CHAIDEZ APRN 575.11 CHOLECYSTITIS, CHRONIC 10/10/2012 MARTI PEARL APRN R 575.11 CHOLECYSTITIS, CHRONIC 10/10/2012 MICHELE FREDERICK APRN N 575.11 CHOLECYSTITIS, CHRONIC 10/10/2012 HUONG MURPHY MD 575.11 CHOLECYSTITIS, CHRONIC 10/10/2012 JOHNNY DOSS APRN 575.11 CHOLECYSTITIS, CHRONIC 10/10/2012 CUMM[place] DO ELISEO K 575.11 CHOLECYSTITIS, CHRONIC 10/10/2012 CUMMINGS DO, ELISEO K 575.11 CHOLECYSTITIS, CHRONIC 10/10/2012 CB OROSCO APRN 575.11 CHOLECYSTITIS, CHRONIC 10/10/2012 CUMMINGS DO ELISEO K 575.11 CHOLECYSTITIS, CHRONIC 10/27/2012 Ot 574.20 10/31/2012 CUMMINGS DO, ELISEO K 682.9 CELLULITIS AND ABSCESS OF UNSPECIFIED SITES 10/31/2012 FAYE CHAIDEZ APRN 682.9 CELLULITIS AND ABSCESS OF UNSPECIFIED SITES 10/31/2012 MARTI PEARL APRN 682.9 CELLULITIS AND ABSCESS OF UNSPECIFIED SITES 10/31/2012 FAYE CHAIDEZ APRN 682.9 CELLULITIS AND ABSCESS OF UNSPECIFIED SITES 10/31/2012 MARTI PEARL APRN 682.9 CELLULITIS AND ABSCESS OF UNSPECIFIED SITES 10/31/2012 MICHELE FREDERICK APRN N 682.9 CELLULITIS AND ABSCESS OF UNSPECIFIED SITES 10/31/2012 HUONG MURPHY MD 682.9 CELLULITIS AND ABSCESS OF UNSPECIFIED SITES 10/31/2012 JOHNNY DOSS APRN 682.9 CELLULITIS AND ABSCESS OF UNSPECIFIED SITES 10/31/2012 CUMMINGS DO ELISEO K 682.9 CELLULITIS AND ABSCESS OF UNSPECIFIED SITES 10/31/2012 CUMMINGS DO ELISEO K 682.9 CELLULITIS AND ABSCESS OF UNSPECIFIED SITES 10/31/2012 CB OROSCO APRN 682.9 CELLULITIS AND ABSCESS OF UNSPECIFIED SITES 10/31/2012 CUMMINGS DO, ELISEO K 682.9 CELLULITIS AND ABSCESS OF UNSPECIFIED SITES 11/08/2012 Ot 789.05 11/08/2012 Ot 998.59 02/04/2013 FAYE CHAIDEZ APRN 486 PNEUMONIA UNSPECIFIED 02/04/2013 MARTI PEARL APRN 486 PNEUMONIA UNSPECIFIED 02/04/2013 FAYE CHAIDEZ APRN 486 PNEUMONIA UNSPECIFIED 02/04/2013 PEARL SECURITY SYSTEM ADMINISTRATOR, MARTI R 486 PNEUMONIA UNSPECIFIED 02/04/2013 MICHELE FREDERICK APRN N 486 PNEUMONIA UNSPECIFIED 02/04/2013 HUONG MURPHY MD 486 PNEUMONIA UNSPECIFIED 02/04/2013 JOHNNY DOSS APRN A 486 PNEUMONIA UNSPECIFIED 02/04/2013 CUMMINGS DO, ELISEO K 486 PNEUMONIA UNSPECIFIED 02/04/2013 CUMMINGS DO, ELISEO K 486 PNEUMONIA UNSPECIFIED 02/04/2013 CB OROSCO APRN 486 PNEUMONIA UNSPECIFIED 02/04/2013 CUMMINGS DO, ELISEO K 486 PNEUMONIA UNSPECIFIED 03/20/2013 Ot 595.9 03/20/2013 Ot 724.2 03/20/2013 Ot 793.11 04/05/2013 MARTI PEARL APRN R 256.4 POLYCYSTIC OVARIAN SYNDROME 04/05/2013 FAYE CHAIDEZ APRN 256.4 POLYCYSTIC OVARIAN SYNDROME 04/05/2013 MARTI PEARL APRN R 256.4 POLYCYSTIC OVARIAN SYNDROME 04/05/2013 MICHELE FREDERICK APRN N 256.4 POLYCYSTIC OVARIAN SYNDROME 04/05/2013 HUONG MURPHY MD 256.4 POLYCYSTIC OVARIAN SYNDROME 04/05/2013 JOHNNY DOSS APRN A 256.4 POLYCYSTIC OVARIAN SYNDROME 04/05/2013 CUMMINGS DO, ELISEO K 256.4 POLYCYSTIC OVARIAN SYNDROME 04/05/2013 CUMMINGS DO, ELISEO K 256.4 POLYCYSTIC OVARIAN SYNDROME 04/05/2013 CB OROSCO APRN 256.4 POLYCYSTIC OVARIAN SYNDROME 04/05/2013 CUMMINGS DO, ELISEO K 256.4 POLYCYSTIC OVARIAN SYNDROME 05/01/2013 FAYE CHAIDEZ APRN 793.11 SOLITARY PULMONARY NODULE 05/01/2013 MARTI PEARL APRN R 793.11 SOLITARY PULMONARY NODULE 05/01/2013 MICHELE FREDERICK APRN N 793.11 SOLITARY PULMONARY NODULE 05/01/2013 HUONG MURPHY MD 793.11 SOLITARY PULMONARY NODULE 05/01/2013 JOHNNY DOSS APRN A 793.11 SOLITARY PULMONARY NODULE 05/01/2013 CUMMINGS DO, ELISEO K 793.11 SOLITARY PULMONARY NODULE 05/01/2013 CUMMINGS DO, ELISEO K 793.11 SOLITARY PULMONARY NODULE 05/01/2013 CB OROSCO APRN 793.11 SOLITARY PULMONARY NODULE 05/01/2013 CUMMINGS DO, ELISEO K 793.11 SOLITARY PULMONARY NODULE 05/26/2013 DAE WINSTONMARTI R 034.0 STREP THROAT 05/26/2013 COSTAVIKY MCCARTHY APRNCY N 034.0 STREP THROAT 05/26/2013 HUONG MURPHY MD 034.0 STREP THROAT 05/26/2013 SELAM WINSTON JOHNNY A 034.0 STREP THROAT 05/26/2013 CUMMINGS DO, ELISEO K 034.0 STREP THROAT 05/26/2013 CUMMINGS DO ELISEO K 034.0 STREP THROAT 05/26/2013 CB OROSCO APRN 034.0 STREP THROAT 05/26/2013 CUMMINGS DO, ELISEO K 034.0 STREP THROAT 09/05/2013 COSTAVIKY MCCARTHY APRNCY N 463 ACUTE TONSILLITIS 09/05/2013 COSTAVIKY MCCARTHY APRNCY N 784.1 THROAT PAIN 09/05/2013 HUONG MURPHY MD 463 ACUTE TONSILLITIS 09/05/2013 HUONG MURPHY MD 784.1 THROAT PAIN 09/05/2013 SELAM WINSTON JOHNNY A 463 ACUTE TONSILLITIS 09/05/2013 SELAM WINSTON JOHNNY A 784.1 THROAT PAIN 09/05/2013 CUMMINGS DO, ELISEO K 463 ACUTE TONSILLITIS 09/05/2013 CUMMINGS DO, ELISEO K 784.1 THROAT PAIN 09/05/2013 CUMMINGS DO, ELISEO K 463 ACUTE TONSILLITIS 09/05/2013 CUMMINGS DO, ELISEO K 784.1 THROAT PAIN 09/05/2013 CB OROSCO APRN 463 ACUTE TONSILLITIS 09/05/2013 CB OROSCO APRN 784.1 THROAT PAIN 09/05/2013 CUMMINGS DO, ELISEO K 463 ACUTE TONSILLITIS 09/05/2013 CUMMINGS DO, ELISEO K 784.1 THROAT PAIN 09/07/2013 HUONG MURPHY MD 787.91 DIARRHEA 09/07/2013 SELAM WINSTON JOHNNY A 787.91 DIARRHEA 09/07/2013 CUMMINGS DO, ELISEO K 787.91 DIARRHEA 09/07/2013 CUMMINGS DO, ELISEO K 787.91 DIARRHEA 09/07/2013 CB OROSCO APRN 787.91 DIARRHEA 09/07/2013 ELISEO CUMMINGS DO 787.91 DIARRHEA 11/15/2013 JOHNNY DOSS APRN 629.81 RECURRENT LOSS WITHOUT CURRENT 11/15/2013 ELISEO CUMMINGS DO 629.81 RECURRENT LOSS WITHOUT CURRENT 11/15/2013 CUMMINGS ELISEO SHEPHERD 629.81 RECURRENT LOSS WITHOUT CURRENT 11/15/2013 CB OROSCO APRN 629.81 RECURRENT LOSS WITHOUT CURRENT 11/15/2013 ELISEO CUMMINGS DO 629.81 RECURRENT LOSS WITHOUT CURRENT 12/11/2013 ELISEO CUMMINGS DO 629.9 RECURRENT LOSS (NON-GRAVID) 12/11/2013 ELISEO CUMMINGS DO 629.9 RECURRENT LOSS (NON-GRAVID) 12/11/2013 CB OROSCO APRN 629.9 RECURRENT LOSS (NON-GRAVID) 12/11/2013 ELISEO CUMMINGS DO 629.9 RECURRENT LOSS (NON-GRAVID) 01/04/2014 ELISEO CUMMINGS DO 461.1 ACUTE FRONTAL SINUSITIS 01/04/2014 CB OROSCO APRN 461.1 ACUTE FRONTAL SINUSITIS 01/04/2014 ELISEO CUMMINGS DO 461.1 ACUTE FRONTAL SINUSITIS 01/11/2014 Ot 465.9 01/11/2014 Ot 786.2 03/15/2014 CB OROSCO APRN 465.9 ACUTE UPPER RESPIRATORY INFECTIONS OF UNSPECIFIED SITE 03/15/2014 ELISEO CUMMINGS DO 465.9 ACUTE UPPER RESPIRATORY INFECTIONS OF UNSPECIFIED SITE 05/20/2014 Ot 574.20 05/20/2014 Ot V72.63 05/20/2014 Ot V74.8 05/20/2014 Ot 793.11 05/21/2014 Ot 389.9 HEARING LOSS NOS 05/21/2014 Ot 780.97 ALTERED MENTAL STATUS 05/21/2014 Ot 784.0 HEADACHE 05/21/2014 Ot E937.0 ADV EFF BARBITURATES 05/21/2014 Ot 389.9 05/21/2014 Ot 780.97 05/21/2014 Ot 784.0 05/21/2014 Ot E937.0 04/01/2015 MACIE DALE, THEODROE Valenzuela Ot M25.511 PAIN IN RIGHT SHOULDER 04/01/2015 MACIE DALE, THEODORE Valenzuela Ot Z98.89 OTHER SPECIFIED POSTPROCEDURAL STATES 08/30/2015 NEHEMIAH HAMEED SECURITY SYSTEM ADMINISTRATOR Ot E28.2 POLYCYSTIC OVARIAN SYNDROME 10/30/2015 CHARLY BANGURA SECURITY SYSTEM ADMINISTRATOR Ot E28.2 POLYCYSTIC OVARIAN SYNDROME 11/01/2015 CHARLY BANGURA SECURITY SYSTEM ADMINISTRATOR Ot E28.2 POLYCYSTIC OVARIAN SYNDROME 08/06/2016 NEHEMIAH HAMEED SECURITY SYSTEM ADMINISTRATOR Ot E28.2 POLYCYSTIC OVARIAN SYNDROME 08/06/2016 CHARLY BANGURA SECURITY SYSTEM ADMINISTRATOR Ot E28.2 POLYCYSTIC OVARIAN SYNDROME 08/07/2016 NEHEMIAH HAMEED SECURITY SYSTEM ADMINISTRATOR Ot E28.2 POLYCYSTIC OVARIAN SYNDROME Procedures Code Description [place] [address] STREP A (IN-HOUSE) 05/03/2012 63639 UA LONG DIP 05/03 47954 CULTURE URINE 07/2012 57872 UA W/ CULTURE IF INDICATED 08/27/2012 63108 CULTURE URINE 03/2012 36121 URINE TEST (IN-HOUSE) 09/19/2012 YELENA BAUER 09/21/2012 97735 STREP A (IN-HOUSE) 04/05/2013 47013 XRAY CHEST 2 VIEW 04/26/[address] CHEST W/DYE 03262 OXIMETRY 2013 44032 STREP A (IN-HOUSE) 05/26/2013 32342 INFLUENZA A & B (IN-HOUSE) 05/26/2013 13372 STREP A (IN-HOUSE) 09/05/2013 78445 CLOSTRIDIUM (C-DIFF) 09/08/2013 97729 ROUTINE VENIPUNCTURE 11/08/2013 89185 TEST, URINE (IN-HOUSE) 11/08/2013 45012 CBC 11/08/2013 1808759 GFR CALC (RESULT ONLY) 11/08/2013 15503 CMP 11/08/2013 70989 LIPID PANEL 11/08 63087 TSH 11/08/2013 75805 INSULIN LEVEL 05124 TEST, URINE (IN-HOUSE) 11/15/2013 Results Encounters ACCT No. Visit Date/Time Discharge Status Pt. Type Provider Facility Loc./Unit Complaint [id number] 04/03/2014 13:43:00 04/03/2014 23: 59:59 CLS Outpatient ELISEO CUMMINGS DO [id number] 03/15/2014 15:13:00 03/15/2014 23: 59:59 CLS Outpatient CB OROSCO APRN [id number] 01/04/2014 14:31:00 01/04/2014 23: 59:59 CLS Outpatient ELISEO CUMMINGS DO Esther [id number] 12/11/2013 10:19:00 12/11/2013 23: 59:59 CLS Outpatient ELISEO CUMMINGS DO [id number] 11/15/2013 15:11:00 11/15/2013 23: 59:59 CLS Outpatient SELAM JOHNNY WINSTON [id number] 09/08/2013 14:40:00 09/08/2013 23: 59:59 CLS Outpatient HUONG MURPHY MD [id number] 09/05/2013 10:53:00 09/05/2013 23: 59:59 CLS Outpatient JULISSA PICHARDO APRN MICHELE Noemi [id number] 05/26/2013 12:38:00 05/26/2013 23: 59:59 CLS Outpatient MARTI PEARL APRN [id number] 04/26/2013 17:34:00 04/26/2013 23: 59:59 CLS Outpatient FAYE CHAIDEZ APRN [id number] 04/05/2013 15:32:00 04/05/2013 23: 59:59 CLS Outpatient MARTI PEARL APRN [id number] 02/04/2013 09:36:00 02/04/2013 23: 59:59 CLS Outpatient FAYE CHAIDEZ APRN [id number] 12/20/2012 14:53:00 12/20/2012 23: 59:59 CLS Outpatient CUMMINGS ELISEO Esther [id number] 05/03/2012 13:12:00 05/03/2012 23: 59:59 CLS Outpatient MARTI PEARL APRN [id number] 09/19/2012 10:15:00 Document Registration [id number] 08/27/2012 13:06:00 Document Registration [id number] 10/29/2015 11:08:00 2015 23:59:59 CLS Outpatient CHARLY BANGURA SECURITY SYSTEM ADMINISTRATOR [facility] RAD E28.2 [id number] 05/17/2015 13:40:00 2015 23:59:59 CLS Outpatient NEHEMIAH HAMEED APRN [facility] RAD PCOS [id number] 04/01/2015 08:51:00 2015 09:38:00 DIS Emergency MACIE DALE, THEODORE Valenzuela [facility] ER RIGHT UPPER ARM PAIN/ SWELLING [id number] 01/11/2014 11:15:00 2013 13:37:00 DIS Emergency [id number] 05/09/2013 15:49:00 2013 23:59:59 CLS Outpatient [id number] 03/20/2013 16:04:00 2012 18:16:00 DIS Emergency [id number] 11/08/2012 19:55:00 2012 20:52:00 DIS Emergency [id number] 10/27/2012 11:11:00 2012 16:40:00 DIS Outpatient [id number] 10/21/2012 12:44:00 2012 23:59:59 CLS Outpatient [id number] 09/15/2012 21:24:00 2012 00:36:00 DIS Emergency [id number] 05/20/2014 18:40:00 Document Registration
[2016-11-13] MEDS ORDERED: diphenhydrAMINE 50 MG/ML INJ (BENADRYL) IVP ONE (22:45)
[2016-11-13] MEDS ORDERED: FAMOTIDINE 20MG/2ML IV (PEPCID) IVP ONE (22:45)
[2016-11-13] MEDS ORDERED: methylPREDNISolone 125 MG (Solu-MEDROL) VIAL IVP ONE (22:45)
[2016-11-13] MEDS ORDERED: FAMO-119 PO (23:50)
[2016-11-13] MEDS ORDERED: PRD20T PO (23:50)
--- NOTE | 2016-11-13 23:53 | ED Integumentary General ---
General Chief Complaint: Allergic Reaction Stated Complaint: RASH Nursing Triage Note: Ambulatory to ED 8 in no acute distress with reports of diffuse rash vs hives. Patient reports that she may have come into contact with someone with exposure to latex or strawberries, but she is not sure. Respirations clear and non-labored, denies any shortness of breath or trouble swallowing. Source: patient Exam Limitations: no limitations History of Present Illness Time seen by provider: 22:37 Initial Comments This 26-year-old young lady presents to the emergency room with widespread pruritic rash starting one hour prior to arrival. She believes it to be an allergic reaction. She is allergic to latex and strawberries and states both of these items were in her work environment today. She reports her throat is irritated but she denies any swelling of the tongue, throat, or lips. She has no difficulty breathing. Allergies and Home Medications Allergies Coded Allergies: strawberry (Verified Allergy, Severe, 11/13/16) latex (Verified Allergy, Unknown, 05/20/14) acetaminophen (Verified Adverse Reaction, Unknown, CONFUSION, 05/21/14) butalbital (Verified Adverse Reaction, Unknown, CONFUSION, 05/21/14) caffeine (Verified Adverse Reaction, Unknown, CONFUSION, 05/21/14) Home Medications Cyclobenzaprine HCl 10 Mg Tablet, 10 MG PO Q8H PRN for SPASMS, #15 Prescribed by: THEODORE QUIJANO on 04/01/15 0937 Famotidine 20 Mg Tablet, 20 MG PO BID, #20 Prescribed by: RACQUEL HOLT on 11/13/16 2350 Prednisone 20 Mg Tab, 20 MG PO DAILY, #4 Prescribed by: RACQUEL HOLT on 11/13/16 2350 Tramadol HCl 50 Mg Tablet, 100 MG PO Q4H, (Reported) [Motrin] , 800 MG PO Q8H, (Reported) Constitutional: no symptoms reported EENTM: see HPI Respiratory: no symptoms reported Cardiovascular: no symptoms reported Gastrointestinal: no symptoms reported Genitourinary: no symptoms reported : No LMP: Nov 10, 2016 Musculoskeletal: no symptoms reported Skin: see HPI Psychiatric/Neurological: No Symptoms Reported Endocrine: No Symptoms Reported Hematologic/Lymphatic: No Symptoms Reported Past Ofunchz-Mnhifa-Nvwvwy Hx Patient Social History Alcohol Use: Occasionally Uses Recreational Drug Use: No Smoking Status: Never a Smoker Former Smoker/When Quit: May 20, 2013 2nd Hand Smoke Exposure: No Recent Foreign Travel: No Contact w/Someone Who Travel: No Recent Infectious Disease Expo: No Recent Hopitalizations: No Immunizations Up To Date Tetanus Booster (TDap): Unknown PED Vaccines UTD: No Seasonal Allergies Seasonal Allergies: No Surgeries HX Surgeries: Yes (D&C X 1 wisdom teeth extaction) Surgeries: Gallbladder, Orthopedic Respiratory Hx Respiratory Disorders: No Cardiovascular Hx Cardiac Disorders: No Neurological Hx Neurological Disorders: No Reproductive System : No Hx Reproductive Disorders: No Sexually Transmitted Disease: Yes (VAGINAL HERPES, NO TREATMENT) Female Reproductive Disorders: Menstrual Problems, Polycystic Ovarian Dis Genitourinary Hx Genitourinary Disorders: No Gastrointestinal Hx Gastrointestinal Disorders: No Musculoskeletal Hx Musculoskeletal Disorders: No Endocrine Hx Endocrine Disorders: Yes (INSULIN RESISTANCE, SELF DC'D MEDS MONTHS AGO) Endocrine Disorders: Adrenal Disease HEENT HX 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) Hearing Impairment: Hard of Hearing Cancer Hx Cancer: No Psychosocial Hx Psychiatric Problems: No Integumentary HX Skin/Integumentary Disorder: No Blood Transfusions Hx Blood Disorders: No Family Medical History Significant Family History: No Pertinent Family Hx Physical Exam Vital Signs Capillary Refill : Less Than 3 Seconds General Appearance: WD/WN, no apparent distress HEENT: PERRL/EOMI, normal ENT inspection, pharynx normal Neck: normal inspection Cardiovascular: regular rate, rhythm, no edema, no murmur Respiratory: lungs clear, normal breath sounds, no respiratory distress, no accessory muscle use Gastrointestinal: non tender, soft Extremities: normal inspection, no pedal edema Neurologic/Psychiatric: mantel craftsman II-XII nml as tested, no motor/sensory deficits, alert, normal mood/affect, oriented x 3 Skin: warm/dry, rash (Widespread erythematous slightly raised pruritic rash) Skin Problem Character: erythema, rash Progress/Results/Core Measures Results/Orders My Orders Orders - RACQUEL FITCH MD Diphenhydramine Injection (Benadryl Inje (11/13/16 22:45) Methylprednisolone Sod Succ (Solu-Medrol (11/13/16 22:45) Famotidine Injection (Pepcid Injection) (11/13/16 22:45) Iv Push Religious Healer Ed (8/18/17 ) Medications Given in ED Vital Signs/I&O Blood Pressure Mean: 109 Progress Note : Progress Note Patient was treated with Pepcid, Benadryl, and Solu-Medrol with near resolution of symptoms. Departure Impression Impression: Primary Impression: Allergic reaction Qualified Codes: T78.40XA - Allergy, unspecified, initial encounter Disposition: HOME, SELF-CARE Condition: Improved Departure-Patient Inst. Decision time for Depature: 23:49 Referrals: [facility] (PCP) Primary Care Physician Patient Instructions: Anaphylaxis (DC) Add. Discharge Instructions: Keep Benadryl (or generic diphenhydramine) with you at all times. If you have a recurrent reaction, take 50 mg of Benadryl immediately and repeat every 4 hours as needed. Take 20 mg of Pepcid (famotidine) twice daily for the next few days to help prevent rebound reaction. You may also take the prednisone prescription for the next few days to prevent rebound reaction. Avoid any known triggers. If you have severe symptoms with an allergic reaction including difficulty breathing, swelling of lips, tongue, or throat, etc. call 911 or present to the nearest emergency room as soon as possible. All discharge instructions reviewed with patient and/or family. Voiced understanding. Scripts Prednisone (Prednisone) 20 Mg Tab 20 MG PO DAILY, #4 TAB Prov: RACQUEL FITCH MD 11/13/16 Famotidine (Pepcid) 20 Mg Tablet 20 MG PO BID, #20 TAB Prov: RACQUEL FITCH MD 11/13/16 RACQUEL FITCH MD Nov 13, 2016 23:53
[2016-11-14 00:03] VITALS: BP 117/75
[2017-01-29] MEDS ORDERED: NITR-65 PO (19:46)
== END 2016-11-14 00:02 | disposition home or self-care (01) ==
LOC: EDUNIT# 22:16 → ER 22:18
DX: T78.40XA Allergy, unspecified, initial encounter (principal); G43.909 Migraine, unspecified, not intractable, without status migrainosus; Z86.19 Personal history of other infectious and parasitic diseases; Z87.448 Personal history of other diseases of urinary system
CPT/HCPCS: 96374; 96375

== ENCOUNTER → 2016-12-22 | Outpatient (CLI) | payer OTHER ==
[~2016-12-22] MED LIST changes: +FAMO-119 PO; +PRD20T PO
--- NOTE | 2016-12-22 13:36 | Diagnostic Imaging Report ---
First trimester OB ultrasound. INDICATION: Dating. Left lower quadrant pain FINDINGS: There is a normal-appearing single intrauterine . An embryo is seen with cardiac activity at 119 beats per minute. The crown-rump length is at 6 weeks and 2 days. JERMAINE is 08/15/17. The right ovary is 3.4 x 2.3 x 3.2 CM. Outside the right ovary in the right adnexa there is a 1.8 x 1.9 x 1.6 CM simple appearing cysts. It does not have features to suggest a heterotopic ectopic . The left ovary is not seen. IMPRESSION: 1. Live single intrauterine . 2. A 1.9 cm from simple appearing cyst in the right adnexa is seen of uncertain etiology. No complex features or hemorrhage in the pelvis is seen to suggest the possibility of a heterotopic . Dictated by: Dictated on workstation # [id number]
== END ==
LOC: RAD 12:32
PROVIDERS: ATTEND Family Medicine
DX: O26.891 Other specified pregnancy related conditions, first trimester (principal); N83.201 Unspecified ovarian cyst, right side; Z3A.01 Less than 8 weeks gestation of pregnancy
CPT/HCPCS: 76801; 76817

== ENCOUNTER → 2017-03-16 | Outpatient (CLI) | payer MEDICAID ==
--- NOTE | 2017-03-16 16:51 | Diagnostic Imaging Report ---
INDICATION: survey. TECHNIQUE: Multiple real-time grayscale images were obtained over the gravid uterus. COMPARISON: 01/29/2017 FINDINGS: heart rate is 150 beats per minute. The placenta is posterior. No placenta previa. Adequate amniotic fluid is seen. The maternal adnexa are obscured by the gravid uterus. survey demonstrates no ventriculomegaly, no hydronephrosis at the level of the kidneys. The stomach is visualized. The bladder, four-chamber view, three-vessel cord, the spine and cord insertion are not well seen. Biometrical measurements are as follows: Biparietal 4.3 cm, age 19 weeks 0 days. Head circumference 15.9 cm, age 18 weeks 6 days. Abdominal circumference 13.9 cm, age 19 weeks 3 days. Femur length 3.1 cm, age 19 weeks 5 days. Sonographic estimate age: 19 weeks 2 days. Sonographic estimated date of delivery: 08/08/17. Estimated Weight: 290 gm (+/- 42 gm). LMP percentile: 96%. heart rate: 150 beats per minute. number: 1 of 1. IMPRESSION: Limited evaluation of the anatomy. Followup study to reevaluate is recommended. Dictated by: Dictated on workstation # [id number]
== END ==
LOC: RAD 13:44
PROVIDERS: ATTEND Family Medicine
DX: Z34.92 Encounter for supervision of normal pregnancy, unspecified, second trimester (principal); Z3A.19 19 weeks gestation of pregnancy
CPT/HCPCS: 76805

== ENCOUNTER 2017-03-27 06:01 | Emergency (ER) | payer MEDICAID ==
[~2017-03-27] VITALS: Ht 175.3 cm; Wt 104.8 kg
--- OUTSIDE RECORDS SUMMARY | 2017-03-27 06:11 | XMS REPORT | Continuity of Care Document ---
Author Author [facility] Address Unknown Phone Unavailable Allergies Active Description Code Type Severity Reaction Onset Reported/Identified Relationship to Patient Clinical Status Yes NATURAL LATEX OA 02/08/2010 Yes NATURAL LATEX OA N/A N/A 02/08/2010 Yes Glucophage 1,000 mg tablet Drug Allergy N/A N/A 09/18/2013 Yes latex [id number] Drug Allergy Unknown N/A 05/20/2014 Yes acetaminophen [id number] Drug Allergy Unknown CONFUSION 05/21/2014 Yes butalbital [id number] Drug Allergy Unknown CONFUSION 05/21/2014 Yes caffeine [id number] Drug Allergy Unknown CONFUSION 05/21/2014 Yes strawberry [id number] Drug Allergy Severe N/A 11/13/2016 Yes cyclobenzaprine [id number] Drug Allergy Unknown N/A 11/27/2016 Medications There is no data. Problems Date Dx Coded Attending Type Code Diagnosis Diagnosed By 11/21/2007 MARTI PEARL APRN 463 TONSILLITIS 11/21/2007 MARTI PEARL APRN 477.9 Rhinitis Allergic 11/21/2007 MARTI PEARL APRN 786.2 Cough 11/21/2007 463 TONSILLITIS 11/21/2007 477.9 Rhinitis Allergic 11/21/2007 786.2 Cough 11/21/2007 463 TONSILLITIS 11/21/2007 477.9 Rhinitis Allergic 11/21/2007 786.2 Cough 11/21/2007 ELISEO CUMMINGS DO 463 TONSILLITIS 11/21/2007 ELISEO CUMMINGS DO 477.9 Rhinitis Allergic 11/21/2007 ELISEO CUMMINGS DO 786.2 Cough 11/21/2007 FAYE CHAIDEZ APRN 463 TONSILLITIS 11/21/2007 FAYE CHAIDEZ APRN 477.9 Rhinitis Allergic 11/21/2007 FAYE CHAIDEZ APRN 786.2 Cough 11/21/2007 PEARL DISHING MACHINE OPERATOR, MARTI R 463 TONSILLITIS 11/21/2007 DAE DISHING MACHINE OPERATOR, MARTI R 477.9 Rhinitis Allergic 11/21/2007 DAE PANTOJAN, MARTI R 786.2 Cough 11/21/2007 KAYLYNN DISHING MACHINE OPERATOR, FAYE T 463 TONSILLITIS 11/21/2007 KAYLYNN DISHING MACHINE OPERATOR, FAYE T 477.9 Rhinitis Allergic 11/21/2007 KAYLYNN DISHING MACHINE OPERATOR, FAYE T 786.2 Cough 11/21/2007 DAE PANTOJAN, MARTI R 463 TONSILLITIS 11/21/2007 PEARL DISHING MACHINE OPERATOR, MARTI R 477.9 Rhinitis Allergic 11/21/2007 DAE DISHING MACHINE OPERATOR, MARTI R 786.2 Cough 11/21/2007 COSTA CASHERO DISHING MACHINE OPERATOR, MICHELE N 463 TONSILLITIS 11/21/2007 COSTA CASHERO DISHING MACHINE OPERATOR, MICHELE N 477.9 Rhinitis Allergic 11/21/2007 COSTA CASHERO DISHING MACHINE OPERATOR, MICHELE N 786.2 Cough 11/21/2007 HUONG MURPHY MD 463 TONSILLITIS 11/21/2007 HUONG MURPHY MD 477.9 Rhinitis Allergic 11/21/2007 HUONG MURPHY MD 786.2 Cough 11/21/2007 SELAM DISHING MACHINE OPERATOR, JOHNNY A 463 TONSILLITIS 11/21/2007 SELAM DISHING MACHINE OPERATOR, JOHNNY A 477.9 Rhinitis Allergic 11/21/2007 SELAM DISHING MACHINE OPERATOR, JOHNNY A 786.2 Cough 11/21/2007 CUMMINGS DO, ELISEO K 463 TONSILLITIS 11/21/2007 CUMMINGS DO, ELISEO K 477.9 Rhinitis Allergic 11/21/2007 CUMMINGS DO, ELISEO K 786.2 Cough 11/21/2007 CUMMINGS DO, ELISEO K 463 TONSILLITIS 11/21/2007 CUMMINGS DO, ELISEO K 477.9 Rhinitis Allergic 11/21/2007 CUMMINGS DO, ELISEO K 786.2 Cough 11/21/2007 CB OROSCO APRN 463 TONSILLITIS 11/21/2007 OROSCO CB WINSTON 477.9 Rhinitis Allergic 11/21/2007 CB OROSCO APRN 786.2 Cough 11/21/2007 CUMMINGS DO, ELISEO K 463 TONSILLITIS 11/21/2007 CUMMINGS DO, ELISEO K 477.9 Rhinitis Allergic 11/21/2007 ZOILA SHEPHERD ELISEO K 786.2 Cough 02/20/2008 MARTI PEARL APRN R 787.20 Dysphagia Unspecified 02/20/2008 787.20 Dysphagia Unspecified 02/20/2008 787.20 Dysphagia Unspecified 02/20/2008 CUMMINGS DO, ELISEO K 787.20 Dysphagia Unspecified 02/20/2008 FAYE CHAIDEZ APRN T 787.20 Dysphagia Unspecified 02/20/2008 MARTI PEARL APRN R 787.20 Dysphagia Unspecified 02/20/2008 FAYE CHAIDEZ APRN 787.20 Dysphagia Unspecified 02/20/2008 MARTI PEARL APRN R 787.20 Dysphagia Unspecified 02/20/2008 MICHELE FREDERICK APRN 787.20 Dysphagia Unspecified 02/20/2008 HUONG MURPHY MD 787.20 Dysphagia Unspecified 02/20/2008 JOHNNY DOSS APRN A 787.20 Dysphagia Unspecified 02/20/2008 ZOILA SHEPHERD ELISEO K 787.20 Dysphagia Unspecified 02/20/2008 ZOILA SHEPHERD ELISEO K 787.20 Dysphagia Unspecified 02/20/2008 CB OROSCO APRN 787.20 Dysphagia Unspecified 02/20/2008 CUMMINGS DO ELISEO K 787.20 Dysphagia Unspecified 03/20/2008 MARTI PEARL APRN R 251.1 PANCREATIC B ISLET CELL HYPERPLASIA 03/20/2008 251.1 PANCREATIC B ISLET CELL HYPERPLASIA 03/20/2008 251.1 PANCREATIC B ISLET CELL HYPERPLASIA 03/20/2008 ELISEO CUMMINGS DO K 251.1 PANCREATIC B ISLET CELL HYPERPLASIA [...] 251.1 PANCREATIC B ISLET CELL HYPERPLASIA 03/20/2008 ELISEO CUMMINGS DO K 251.1 PANCREATIC B ISLET CELL HYPERPLASIA 03/20/2008 CUMMINGS AIME SHEPHERDA K 251.1 PANCREATIC B ISLET CELL HYPERPLASIA 03/20/2008 CB OROSCO APRN 251.1 PANCREATIC B ISLET CELL HYPERPLASIA 03/20/2008 ELISEO CUMMINGS DO K 251.1 PANCREATIC B ISLET CELL HYPERPLASIA 05/01/2008 MARTI PEARL APRN R 462 Pharyngitis Acute 05/01/2008 462 Pharyngitis Acute 05/01/2008 462 Pharyngitis Acute 05/01/2008 AIME CUMMINGS DOA K 462 Pharyngitis Acute 05/01/2008 FAYE CHAIDEZ APRN 462 Pharyngitis Acute 05/01/2008 MARTI PEARL APRN R 462 Pharyngitis Acute 05/01/2008 FAYE CHAIDEZ APRN 462 Pharyngitis Acute 05/01/2008 MARTI PEARL APRN R 462 Pharyngitis Acute 05/01/2008 MICHELE FREDERICK APRN 462 Pharyngitis Acute 05/01/2008 HUONG MURPHY MD 462 Pharyngitis Acute 05/01/2008 JOHNNY DOSS APRN 462 Pharyngitis Acute 05/01/2008 AIME CUMMINGS DOA K 462 Pharyngitis Acute 05/01/2008 AIME CUMMINGS DOA K 462 Pharyngitis Acute 05/01/2008 CB OROSCO APRN 462 Pharyngitis Acute 05/01/2008 AIME CUMMINGS DOA K 462 Pharyngitis Acute 08/07/2008 MARTI PEARL APRN R 845.00 Sprain/strain Ankle 08/07/2008 845.00 Sprain/ strain Ankle 08/07/2008 845.00 Sprain/ strain Ankle 08/07/2008 AIME CUMMINGS DOA K 845.00 Sprain/strain Ankle 08/07/2008 FAYE CHAIDEZ APRN 845.00 Sprain/strain Ankle 08/07/2008 MARTI PEARL APRN R 845.00 Sprain/strain Ankle 08/07/2008 FAYE CHAIDEZ APRN 845.00 Sprain/strain Ankle 08/07/2008 MARTI PEARL APRN 845.00 Sprain/strain Ankle 08/07/2008 MICHELE FREDERICK APRN 845.00 Sprain/strain Ankle 08/07/2008 HUONG MURPHY MD 845.00 Sprain/strain Ankle 08/07/2008 JOHNNY DOSS APRN 845.00 Sprain/strain Ankle 08/07/2008 ELISEO CUMMINGS DO K 845.00 Sprain/strain Ankle 08/07/2008 ELISEO CUMMINGS DO K 845.00 Sprain/strain Ankle 08/07/2008 CB OROSCO APRN 845.00 Sprain/strain Ankle 08/07/2008 ELISEO CUMMINGS DO K 845.00 Sprain/strain Ankle 12/07/2008 MARTI PEARL APRN 626.4 irregular length of menstrual periods 12/07/2008 MARTI PEARL APRN V25.49 Gynecologic Service Prescrip Of Contracept [...] - Repeat Rx 12/07/2008 MARTI PEARL APRN 626.4 irregular length of menstrual periods 12/07/2008 MARTI PEARL APRN V25.49 Gynecologic Service Prescrip Of Contracept Agent - Repeat Rx 12/07/2008 FAYE CHAIDEZ APRN 626.4 irregular length of menstrual periods 12/07/2008 FAYE CHAIDEZ APRN V25.49 Gynecologic Service Prescrip Of Contracept Agent - Repeat Rx 12/07/2008 MARTI PEARL APRN 626.4 irregular length of menstrual periods 12/07/2008 MARTI PEARL APRN V25.49 Gynecologic Service Prescrip Of Contracept Agent - Repeat Rx 12/07/2008 MICHELE FREDERICK APRN N 626.4 irregular length of menstrual periods 12/07/2008 COSTA LEONILAMICHELE VILLEGAS APRN N V25.49 Gynecologic Service Prescrip Of Contracept Agent - Repeat Rx 12/07/2008 HUONG MURPHY MD 626.4 irregular length of menstrual periods 12/07/2008 HUONG MURPHY MD V25.49 Gynecologic Service Prescrip Of Contracept Agent - Repeat Rx 12/07/2008 SELAMJOHNNY Franklin APRN A 626.4 irregular length of menstrual periods 12/07/2008 SELAMJOHNNY Franklin APRN V25.49 Gynecologic Service Prescrip Of Contracept [...] - Repeat Rx 01/16/2009 MARTI PEARL APRN 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 01/16/2009 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 01/16/2009 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 01/16/2009 ELISEO CUMMINGS DO 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 01/16/2009 FAYE CHAIDEZ APRN 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 01/16/2009 MARTI PEARL APRN 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 01/16/2009 FAYE CHAIDEZ APRN 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 01/16/2009 MARTI PEARL APRN 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 01/16/2009 MICHELE FREDERICK APRN N 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10 Vaginitis Vulvovaginitis Unspecified 02/08/2009 MARTI PEARL APRN R 616.10 Vaginitis Vulvovaginitis Unspecified 02/08/2009 FAYE CHAIDEZ APRN T 616.10 Vaginitis Vulvovaginitis Unspecified 02/08/2009 MARTI PEARL APRN R 616.10 Vaginitis Vulvovaginitis Unspecified 02/08/2009 MICHELE FREDERICK APRN N 616.10 Vaginitis Vulvovaginitis Unspecified 02/08/2009 HUONG MURPHY MD 616.10 Vaginitis Vulvovaginitis Unspecified 02/08/2009 JOHNNY DOSS APRN A 616.10 Vaginitis Vulvovaginitis Unspecified 02/08/2009 ELISEO CUMMINGS DO K 616.10 Vaginitis Vulvovaginitis Unspecified 02/08/2009 ELISEO CUMMINGS DO K 616.10 Vaginitis Vulvovaginitis Unspecified 02/08/2009 CB OROSCO APRN 616.10 Vaginitis Vulvovaginitis Unspecified 02/08/2009 ELISEO CUMMINGS DO 616.10 Vaginitis Vulvovaginitis Unspecified 09/16/2009 MARTI PEARL [...] Specified Disorders Of Function Of Stomach 09/16/2009 AIME CUMMINGS DOA K 536.8 Dyspepsia And Other Specified Disorders Of Function Of Stomach 12/19/2009 MARTI PEARL APRN R 493.90 Asthma, Unspecified, Unspecified 12/19/2009 493.90 Asthma, Unspecified, Unspecified 12/19/2009 493.90 Asthma, Unspecified, Unspecified 12/19/2009 ELISEO CUMMINGS DO K 493.90 Asthma, Unspecified, Unspecified 12/19/2009 FAYE CHAIDEZ APRN 493.90 Asthma, Unspecified, Unspecified 12/19/2009 MARTI PEARL APRN R 493.90 Asthma, Unspecified, Unspecified 12/19/2009 FAYE CHAIDEZ APRN 493.90 Asthma, Unspecified, Unspecified 12/19/2009 MARTI PEARL APRN R 493.90 Asthma, Unspecified, Unspecified 12/19/2009 JULISSA PICHARDO APRN, MICHELE Franklin 493.90 Asthma, Unspecified, Unspecified 12/19/2009 KATHERINE DALE, HUONG 493.90 Asthma, Unspecified, Unspecified 12/19/2009 SELAM WINSTON, JOHNNY Mattson 493.90 Asthma, Unspecified, Unspecified 12/19/2009 ELISEO CUMMINGS DO 493.90 Asthma, Unspecified, Unspecified 12/19/2009 ELISEO CUMMINGS DO 493.90 Asthma, Unspecified, Unspecified 12/19/2009 KWESI WINSTON, CB Elias 493.90 Asthma, Unspecified, Unspecified 12/19/2009 AIME CUMMINGS DOA K 493.90 Asthma, Unspecified, Unspecified 12/25/2009 MARTI [...] Counseling On Other Sexually Transmitted Diseases 12/25/2009 AIME CUMMINGS DOA K 790.29 Other Abnormal Glucose 12/25/2009 AIME [...] Sexually Transmitted Diseases 12/25/2009 FAYE CHAIDEZ APRN T 790.29 Other Abnormal Glucose 12/25/2009 FAYE CHAIDEZ [...] Counseling And Advice 12/25/2009 JOHNNY DOSS APRN V65.45 Counseling On Other Sexually Transmitted Diseases 12/25/2009 ELISEO CUMMINGS DO 790.29 Other Abnormal Glucose 12/25/2009 ELISEO CUMMINGS DO K V25.09 Encounter For Contraceptive Management, Other General Counseling And Advice 12/25/2009 ELISEO CUMMINGS DO V65.45 Counseling On Other Sexually Transmitted Diseases 12/25/2009 ELISEO CUMMINGS DO 790.29 Other Abnormal Glucose 12/25/2009 ELISEO CUMMINGS DO V25.09 Encounter For Contraceptive Management, Other General Counseling And Advice 12/25/2009 ELISEO CUMMINGS DO V65.45 Counseling On Other Sexually Transmitted Diseases 12/25/2009 CB OROSCO APRN 790.29 Other Abnormal Glucose 12/25/2009 CB OROSCO APRN V25.09 Encounter For Contraceptive Management, Other General Counseling And Advice 12/25/2009 CB OROSCO APRN V65.45 Counseling On Other Sexually Transmitted Diseases 12/25/2009 ELISEO CUMMINGS DO 790.29 Other Abnormal Glucose 12/25/2009 ELISEO CUMMINGS DO V25.09 Encounter For Contraceptive Management, Other General [...] Diseases, Other Viral 12/26/2009 ELISEO CUMMINGS DO V74.5 Std Screen 12/26/2009 FAYE CHAIDEZ APRN V01.79 Contact With Or Exposure To Communicable Diseases, Other Viral 12/26/2009 FAYE CHAIDEZ APRN V74.5 Std Screen 12/26/2009 MARTI PEARL APRN R V01.79 Contact With Or Exposure To Communicable Diseases, Other Viral 12/26/2009 MARTI PEARL APRN R V74.5 Std Screen 12/26/2009 FAYE CHAIDEZ APRN V01.79 Contact With Or Exposure To Communicable Diseases, Other Viral 12/26/2009 FAYE CHAIDEZ APRN V74.5 Std Screen 12/26/2009 MARTI PEARL APRN R V01.79 Contact With Or Exposure To Communicable Diseases, Other Viral 12/26/2009 MARTI PEARL APRN R V74.5 Std Screen 12/26/2009 COSTAMICHELE MCCARTHY APRN N V01.79 Contact With Or Exposure To Communicable Diseases, Other Viral 12/26/2009 COSTADION PICHARDO APRN, MICHELE N V74.5 Std Screen 12/26/2009 HUONG MURPHY MD V01.79 Contact With Or Exposure To Communicable Diseases, Other Viral 12/26/2009 HUONG MURPHY MD V74.5 Std Screen 12/26/2009 SELAMJOHNNY Franklin APRN A V01.79 Contact With Or Exposure To Communicable Diseases, Other Viral 12/26/2009 JOHNNY DOSS APRN A V74.5 Std Screen 12/26/2009 CUMMINGS DO, [...] APRN T 616.0 Cervicitis And Endocervicitis 01/06/2010 DINESH PEARL APRNIA R 599.0 Urinary Tract Infection Site Not Specified 01/06/2010 DINESH PEARL APRNIA R 616.0 Cervicitis And Endocervicitis 01/06/2010 FAYE CHAIDEZ APRN T 599.0 Urinary Tract Infection Site Not Specified 01/06/2010 FAYE CHAIDEZ APRN T 616.0 Cervicitis And Endocervicitis 01/06/2010 DINESH PEARL APRNIA R 599.0 Urinary Tract Infection Site Not Specified 01/06/2010 MARTI PEARL APRN R 616.0 Cervicitis And Endocervicitis 01/06/2010 MICHELE FREDERICK APRN N 599.0 Urinary Tract Infection Site Not Specified 01/06/2010 MICHELE FREDERICK APRN N 616.0 Cervicitis And Endocervicitis 01/06/2010 HUONG MURPHY MD 599.0 Urinary Tract Infection Site Not Specified 01/06/2010 HUONG MURPHY MD 616.0 Cervicitis And Endocervicitis 01/06/2010 JOHNNY DOSS APRN A 599.0 Urinary Tract Infection Site Not Specified 01/06/2010 JOHNNY DOSS APRN A 616.0 Cervicitis And Endocervicitis 01/06/2010 ZOILA DO ELISEO K 599.0 Urinary Tract Infection Site Not Specified 01/06/2010 ZOILA DO, ELISEO K 616.0 Cervicitis And Endocervicitis 01/06/2010 CUMMINGS DO, ELISEO K 599.0 Urinary Tract Infection Site Not Specified 01/06/2010 ZOILA DO, ELISEO K 616.0 Cervicitis And Endocervicitis 01/06/2010 CB OROSCO APRN 599.0 Urinary Tract Infection Site Not Specified 01/06/2010 CB OROSCO APRN 616.0 Cervicitis And Endocervicitis 01/06/2010 ZOILA DO ELISEO K 599.0 Urinary Tract Infection Site Not Specified 01/06/2010 ZOILA SHEPHERD ELISEO K 616.0 Cervicitis And Endocervicitis 02/08/2010 LEANDRO PEARL APRNRICIA R V69.2 High-risk Sexual Behavior 02/08/2010 DINESH PEARL APRNIA R V72.31 Rattan Worker Exam, Routine 02/08/2010 V69.2 High-risk Sexual Behavior 02/08/2010 V72.31 Rattan Worker Exam, Routine 02/08/2010 V69.2 High-risk Sexual Behavior 02/08/2010 V72.31 Rattan Worker Exam, Routine 02/08/2010 CUMMINGS DO, ELISEO K V69.2 High-risk Sexual Behavior 02/08/2010 CUMMINGS DO, ELISEO K V72.31 Rattan Worker Exam, Routine 02/08/2010 FAYE CHAIDEZ APRN V69.2 High-risk Sexual Behavior 02/08/2010 FAYE CHAIDEZ APRN V72.31 Rattan Worker Exam, Routine 02/08/2010 MARTI PEARL APRN R V69.2 High-risk Sexual Behavior 02/08/2010 MARTI PEARL APRN R V72.31 Rattan Worker Exam, Routine 02/08/2010 FAYE CHAIDEZ APRN V69.2 High-risk Sexual Behavior 02/08/2010 FAYE CHAIDEZ APRN V72.31 Rattan Worker Exam, Routine 02/08/2010 DINESH PEARL APRNIA R V69.2 High-risk Sexual Behavior 02/08/2010 DINESH PEARL APRNIA R V72.31 Rattan Worker Exam, Routine 02/08/2010 MICHELE FREDERICK APRN N V69.2 High-risk Sexual Behavior 02/08/2010 MICHELE FREDERICK APRN N V72.31 Rattan Worker Exam, Routine 02/08/2010 HUONG MURPHY MD V69.2 High-risk Sexual Behavior 02/08/2010 HUONG MURPHY MD V72.31 Rattan Worker Exam, Routine 02/08/2010 ENMANUEL DOSS APRNIDI A V69.2 High-risk Sexual Behavior 02/08/2010 SELAM WINSTON JOHNNY Twila V72.31 Rattan Worker Exam, Routine 02/08/2010 CUMMINGS DO ELISEO K V69.2 High-risk Sexual Behavior 02/08/2010 CUMMINGS DO ELISEO K V72.31 Rattan Worker Exam, Routine 02/08/2010 CUMMINGS DO ELISEO K V69.2 High-risk Sexual Behavior 02/08/2010 CUMMINGS DO, ELISEO K V72.31 Rattan Worker Exam, Routine 02/08/2010 CB OROSCO APRN V69.2 High-risk Sexual Behavior 02/08/2010 CB OROSCO APRN V72.31 Rattan Worker Exam, Routine 02/08/2010 CUMMINGS DO, ELISEO K V69.2 High-risk Sexual Behavior 02/08/2010 CUMMINGS DO, ELISEO K V72.31 Rattan Worker Exam, Routine 03/31/2010 MARTI PEARL APRN R 692.9 Dermatitis Contact Unspecified 03/31/2010 692.9 Dermatitis Contact Unspecified 03/31/2010 692.9 Dermatitis Contact Unspecified 03/31/2010 CUMMINGS DO, ELISEO K 692.9 Dermatitis Contact Unspecified 03/31/2010 FAYE CHAIDEZ APRN 692.9 Dermatitis Contact Unspecified 03/31/2010 MARTI PEARL APRN R 692.9 Dermatitis Contact Unspecified 03/31/2010 FAYE CHAIDEZ APRN 692.9 Dermatitis Contact Unspecified 03/31/2010 MARTI PEARL APRN R 692.9 Dermatitis Contact Unspecified 03/31/2010 MICHELE FREDERICK APRN 692.9 Dermatitis Contact Unspecified 03/31/2010 KATHERINE DALE, HUONG 692.9 Dermatitis Contact Unspecified 03/31/2010 JOHNNY DOSS APRN 692.9 Dermatitis Contact Unspecified 03/31/2010 CUMMINGS DO, ELISEO K 692.9 Dermatitis Contact Unspecified 03/31/2010 CUMMINGS DO, ELISEO K 692.9 Dermatitis Contact Unspecified 03/31/2010 CB OROSCO APRN 692.9 Dermatitis Contact Unspecified 03/31/2010 CUMMINGS DO, ELISEO K 692.9 Dermatitis Contact Unspecified 04/08/2010 MARTI PEARL APRN R 465.9 Upper Respiratory Infection 04/08/2010 465.9 Upper Respiratory Infection 04/08/2010 465.9 Upper Respiratory Infection 04/08/2010 ZOILA SHEPHERD ELISEO K 465.9 Upper Respiratory Infection 04/08/2010 FAYE CHAIDEZ APRN 465.9 Upper Respiratory Infection 04/08/2010 MARTI PEARL APRN R 465.9 Upper Respiratory Infection 04/08/2010 FAYE CHAIDEZ APRN 465.9 Upper Respiratory Infection 04/08/2010 MARTI PEARL APRN R 465.9 Upper Respiratory Infection 04/08/2010 MICHELE FREDERICK APRN 465.9 Upper Respiratory Infection 04/08/2010 HUONG MURPHY MD 465.9 Upper Respiratory Infection 04/08/2010 JOHNNY DOSS APRN 465.9 Upper Respiratory Infection 04/08/2010 CUMMINGS DO, ELISEO K 465.9 Upper Respiratory Infection 04/08/2010 CUMMINGS DO, ELISEO K 465.9 Upper Respiratory Infection 04/08/2010 CB OROSCO APRN 465.9 Upper Respiratory Infection 04/08/2010 CUMMINGS DO, ELISEO K 465.9 Upper Respiratory Infection 04/11/2010 MARTI PEARL APRN R 381.81 Eustachian Tube Dysfunction 04/11/2010 MARTI PEARL APRN R 388.70 Otalgia Unspecified 04/11/2010 381.81 Eustachian Tube Dysfunction 04/11/2010 388.70 Otalgia Unspecified 04/11/2010 381.81 Eustachian Tube Dysfunction 04/11/2010 388.70 Otalgia Unspecified 04/11/2010 CUMMINGS DO, ELISEO K 381.81 Eustachian Tube Dysfunction 04/11/2010 CUMMINGS DO, ELISEO K 388.70 Otalgia Unspecified 04/11/2010 FAYE CHAIDEZ APRN 381.81 Eustachian Tube Dysfunction 04/11/2010 FAYE CHAIDEZ APRN 388.70 Otalgia Unspecified 04/11/2010 MARTI PEARL APRN R 381.81 Eustachian Tube Dysfunction 04/11/2010 MARTI PEARL APRN R 388.70 Otalgia Unspecified 04/11/2010 FAYE CHAIDEZ APRN 381.81 Eustachian Tube Dysfunction 04/11/2010 FAYE CHAIDEZ APRN 388.70 Otalgia Unspecified 04/11/2010 MARTI PEARL APRN R 381.81 Eustachian Tube Dysfunction 04/11/2010 MARTI PEARL APRN R 388.70 Otalgia Unspecified 04/11/2010 MICHELE FREDERICK APRN N 381.81 Eustachian Tube Dysfunction 04/11/2010 MICHELE FREDERICK APRN N 388.70 Otalgia Unspecified 04/11/2010 HUONG MURPHY MD 381.81 Eustachian Tube Dysfunction 04/11/2010 HUONG MURPHY MD 388.70 Otalgia Unspecified 04/11/2010 JOHNNY DOSS APRN 381.81 Eustachian Tube Dysfunction 04/11/2010 JOHNNY DOSS APRN 388.70 Otalgia Unspecified 04/11/2010 CUMMINGS DO, [...] CUMMINGS DO, ELISEO K 388.70 Otalgia Unspecified 06/30/2010 MARTI PEARL APRN 311 Depressive Disorder Not Elsewhere Classified [...] Not Elsewhere Classified 06/30/2010 JOHNNY DOSS APRN 311 Depressive Disorder Not Elsewhere Classified 06/30/2010 CUMMINGS DO, ELISEO K 311 Depressive Disorder Not Elsewhere Classified 06/30/2010 CUMMINGS DO, ELISEO K 311 Depressive Disorder Not Elsewhere Classified 06/30/2010 CB OROSCO APRN 311 Depressive Disorder Not Elsewhere Classified 06/30/2010 CUMMINGS DO, ELISEO K 311 Depressive Disorder Not Elsewhere Classified 03/19/2011 DAE WINSTON MARTI R 626.0 AMENORRHEA 03/19/2011 LEANDRO PEARL APRNRICIA R 780.79 Fatigue 03/19/2011 626.0 AMENORRHEA 03/19/2011 780.79 Fatigue 03/19/2011 626.0 AMENORRHEA 03/19/2011 780.79 Fatigue 03/19/2011 CUMMINGS DO, ELISEO K 626.0 AMENORRHEA 03/19/2011 CUMMINGS DO, ELISEO K 780.79 Fatigue 03/19/2011 KAYLYNN WINSTON FAYE T 626.0 AMENORRHEA 03/19/2011 KAYLYNN WINSTON FAYE T 780.79 Fatigue 03/19/2011 LEANDRO PEARL APRNRICIA R 626.0 AMENORRHEA 03/19/2011 LEANDRO PEARL APRNRICIA R 780.79 Fatigue 03/19/2011 KAYLYNN WINSTON FAYE T 626.0 AMENORRHEA 03/19/2011 KAYLYNN WINSTON FAYE T 780.79 Fatigue 03/19/2011 LEANDRO PEARL APRNRICIA R 626.0 AMENORRHEA 03/19/2011 LEANDRO PEARL APRNRICIA R 780.79 Fatigue 03/19/2011 VIKY FREDERICK APRNCY N 626.0 AMENORRHEA 03/19/2011 JULISSA PICHARDO APRN MICHELE N 780.79 Fatigue 03/19/2011 HUONG MURPHY MD 626.0 AMENORRHEA 03/19/2011 HUONG MURPHY MD 780.79 Fatigue 03/19/2011 ENMANUEL DOSS APRNIDI A 626.0 AMENORRHEA 03/19/2011 SELAM WINSTON JOHNNY A 780.79 Fatigue 03/19/2011 CUMMINGS DO ELISEO K 626.0 AMENORRHEA 03/19/2011 CUMMINGS DO ELISEO K 780.79 Fatigue 03/19/2011 CUMMINGS DO, ELISEO K 626.0 AMENORRHEA 03/19/2011 CUMMINGS DO, ELISEO K 780.79 Fatigue 03/19/2011 CB OROSCO APRN J 626.0 AMENORRHEA 03/19/2011 OROSCO CB WINSTON 780.79 Fatigue 03/19/2011 CUMMINGS DO, ELISEO K 626.0 AMENORRHEA 03/19/2011 CUMMINGS DO, ELISEO K 780.79 Fatigue 04/10/2011 MARTI PEARL APRN R 787.02 Nausea 04/10/2011 787.02 Nausea 04/10/2011 787.02 Nausea 04/10/2011 CUMMINGS DO, ELISEO K 787.02 Nausea 04/10/2011 FAYE CHAIDEZ APRN 787.02 Nausea 04/10/2011 MARTI PEARL APRN R 787.02 Nausea 04/10/2011 FAYE CHAIDEZ APRN 787.02 Nausea 04/10/2011 MARTI PEARL APRN R 787.02 Nausea 04/10/2011 MICHELE FREDERICK APRN 787.02 Nausea 04/10/2011 HUONG MURPHY MD 787.02 Nausea 04/10/2011 JOHNNY DOSS APRN 787.02 Nausea 04/10/2011 CUMMINGS DO, ELISEO K 787.02 Nausea 04/10/2011 CUMMINGS DO, ELISEO K 787.02 Nausea 04/10/2011 CB OROSCO APRN 787.02 Nausea 04/10/2011 CUMMINGS DO, ELISEO K 787.02 Nausea 04/16/2011 DINESH PEARL APRNIA R 708.9 Urticaria/hives Unspec 04/16/2011 DINESH PEARL APRNIA R 995.7 Other Adverse Food Reactions Not Elsewhere Classified 04/16/2011 708.9 Urticaria/ hives Unspec 04/16/2011 995.7 Other Adverse Food Reactions Not Elsewhere Classified 04/16/2011 708.9 Urticaria/ hives Unspec 04/16/2011 995.7 Other Adverse Food Reactions [...] MICHELE N 708.9 Urticaria/hives Unspec 04/16/2011 JULISSA KEENBAKARI [place] MICHELE N 995.7 Other Adverse Food Reactions Not Elsewhere Classified 04/16/2011 HUONG MURPHY MD 708.9 Urticaria/hives Unspec 04/16/2011 HUONG MURPHY MD 995.7 Other Adverse Food Reactions Not Elsewhere Classified 04/16/2011 SELAMJOEY [place] JOHNNY A 708.9 Urticaria/hives Unspec 04/16/2011 SELAMJOEY [place] JOHNNY A 995.7 Other Adverse Food Reactions Not Elsewhere Classified 04/16/2011 CUMMINGS DO, ELISEO K 708.9 Urticaria/hives Unspec 04/16/2011 CUMMINGS DO, ELISEO K 995.7 Other Adverse Food Reactions Not Elsewhere Classified 04/16/2011 CUMMINGS DO, ELISEO K 708.9 Urticaria/hives Unspec 04/16/2011 CUMMINGS DO, ELISEO K 995.7 Other Adverse Food Reactions Not Elsewhere Classified 04/16/2011 CB OROSCO APRN 708.9 Urticaria/hives Unspec 04/16/2011 CB OROSCO APRN 995.7 Other Adverse Food Reactions Not [...] 09/01/2011 V65.42 Counseling - Smoking Cessation 09/01/2011 ELISEO CUMMINGS DO K 461.9 Sinusitis Acute 09/01/2011 ELISEO CUMMINGS DO K V25.02 General Counseling On Initiation Of Other Contraceptive Measures 09/01/2011 ELISEO CUMMINGS DO K V65.42 Counseling - Smoking Cessation 09/01/2011 FAYE CHAIDEZ APRN 461.9 Sinusitis Acute 09/01/2011 FAYE CHAIDEZ APRN V25.02 General Counseling On Initiation Of Other Contraceptive Measures 09/01/2011 FAYE CHAIDEZ APRN V65.42 Counseling - Smoking Cessation 09/01/2011 MARTI PEARL APRN R 461.9 Sinusitis Acute 09/01/2011 MARTI PEARL APRN R V25.02 General Counseling On Initiation Of Other Contraceptive Measures 09/01/2011 MARTI PEARL APRN R V65.42 Counseling - Smoking Cessation 09/01/2011 FAYE CHAIDEZ APRN 461.9 Sinusitis Acute 09/01/2011 FAYE CHAIDEZ APRN V25.02 General Counseling On Initiation Of Other Contraceptive Measures 09/01/2011 FAYE CHAIDEZ APRN V65.42 Counseling - Smoking Cessation 09/01/2011 MARTI PEARL APRN R 461.9 Sinusitis Acute 09/01/2011 MARTI PEARL APRN R V25.02 General Counseling On Initiation Of Other Contraceptive Measures 09/01/2011 MARTI PEARL APRN R V65.42 Counseling - Smoking Cessation 09/01/2011 MICHELE FREDERICK APRN N 461.9 Sinusitis Acute 09/01/2011 VIKY FREDERICK APRNCY N V25.02 General Counseling On Initiation Of Other Contraceptive Measures 09/01/2011 VIKY FREDERICK APRNCY N V65.42 Counseling - Smoking Cessation 09/01/2011 HUONG MURPHY MD 461.9 Sinusitis Acute 09/01/2011 HUONG MURPHY MD V25.02 General Counseling On Initiation Of Other Contraceptive Measures 09/01/2011 HUONG MURPHY MD V65.42 Counseling - Smoking Cessation 09/01/2011 JOHNNY DOSS APRN 461.9 Sinusitis Acute 09/01/2011 JOHNNY DOSS APRN A V25.02 General Counseling On Initiation Of Other Contraceptive Measures 09/01/2011 JOHNNY DOSS APRN V65.42 Counseling - Smoking Cessation 09/01/2011 ELISEO CUMMINGS DO 461.9 Sinusitis Acute 09/01/2011 ELISEO CUMMINGS DO V25.02 General Counseling On Initiation Of Other Contraceptive Measures 09/01/2011 ELISEO CUMMINGS DO V65.42 Counseling - Smoking Cessation 09/01/2011 ELISEO [...] ORAL CONTRACEPTION 12/03/2011 MARTI PEARL APRN V72.31 ELECTRIC KNIFE OPERATOR EXAM, ROUTINE 12/03/2011 MARTI PEARL APRN V74.5 STD SCREEN 12/03/2011 V25.01 CONTRACEPTION - ORAL CONTRACEPTION 12/03/2011 V72.31 ELECTRIC KNIFE OPERATOR EXAM, ROUTINE 12/03/2011 V74.5 STD SCREEN 12/03/2011 V25.01 CONTRACEPTION - ORAL CONTRACEPTION 12/03/2011 V72.31 ELECTRIC KNIFE OPERATOR EXAM, ROUTINE 12/03/2011 V74.5 STD SCREEN 12/03/2011 ELISEO CUMMINGS DO V25.01 CONTRACEPTION - ORAL CONTRACEPTION 12/03/2011 ELISEO CUMMINGS DO V72.31 ELECTRIC KNIFE OPERATOR EXAM, ROUTINE 12/03/2011 ELISEO CUMMINGS DO V74.5 STD SCREEN 12/03/2011 FAYE CHAIDEZ APRN V25.01 CONTRACEPTION - ORAL CONTRACEPTION 12/03/2011 FAYE CHAIDEZ APRN V72.31 ELECTRIC KNIFE OPERATOR EXAM, ROUTINE 12/03/2011 FAYE CHAIDEZ APRN V74.5 STD SCREEN 12/03/2011 MARTI PEARL APRN R V25.01 CONTRACEPTION - ORAL CONTRACEPTION 12/03/2011 MARTI PEARL APRN R V72.31 ELECTRIC KNIFE OPERATOR EXAM, ROUTINE 12/03/2011 MARTI PEARL APRN R V74.5 STD SCREEN 12/03/2011 FAYE CHAIDEZ APRN V25.01 CONTRACEPTION - ORAL CONTRACEPTION 12/03/2011 FAYE CHAIDEZ APRN V72.31 ELECTRIC KNIFE OPERATOR EXAM, ROUTINE 12/03/2011 FAYE CHAIDEZ APRN V74.5 STD SCREEN 12/03/2011 MARTI PEARL APRN R V25.01 CONTRACEPTION - ORAL CONTRACEPTION 12/03/2011 MARTI PEARL APRN R V72.31 ELECTRIC KNIFE OPERATOR EXAM, ROUTINE 12/03/2011 MARTI PEARL APRN R V74.5 STD SCREEN 12/03/2011 MICHELE FREDERICK APRN N V25.01 CONTRACEPTION - ORAL CONTRACEPTION 12/03/2011 MICHELE FREDERICK APRN N V72.31 ELECTRIC KNIFE OPERATOR EXAM, ROUTINE 12/03/2011 MICHELE FREDERICK APRN N V74.5 STD SCREEN 12/03/2011 HUONG MURPHY MD V25.01 CONTRACEPTION - ORAL CONTRACEPTION 12/03/2011 HUONG MURPHY MD V72.31 ELECTRIC KNIFE OPERATOR EXAM, ROUTINE 12/03/2011 HUONG MURPHY MD V74.5 STD SCREEN 12/03/2011 JOHNNY DOSS APRN A V25.01 CONTRACEPTION - ORAL CONTRACEPTION 12/03/2011 JOHNNY DOSS APRN A V72.31 ELECTRIC KNIFE OPERATOR EXAM, ROUTINE 12/03/2011 JOHNNY DOSS APRN A V74.5 STD SCREEN 12/03/2011 AIME CUMMINGS DOA K V25.01 CONTRACEPTION - ORAL CONTRACEPTION 12/03/2011 AIME CUMMINGS DOA K V72.31 ELECTRIC KNIFE OPERATOR EXAM, ROUTINE 12/03/2011 CUMMINGS DO ELISEO K V74.5 STD SCREEN 12/03/2011 CUMMINGS DO ELISEO K V25.01 CONTRACEPTION - ORAL CONTRACEPTION 12/03/2011 CUMMINGS DO ELISEO K V72.31 ELECTRIC KNIFE OPERATOR EXAM, ROUTINE 12/03/2011 ELISEO CUMMINGS DO V74.5 STD SCREEN 12/03/2011 CB OROSCO APRN V25.01 CONTRACEPTION - ORAL CONTRACEPTION 12/03/2011 CB OROSCO APRN V72.31 ELECTRIC KNIFE OPERATOR EXAM, ROUTINE 12/03/2011 CB OROSCO APRN V74.5 STD SCREEN 12/03/2011 ELISEO CUMMINGS DO V25.01 CONTRACEPTION - ORAL CONTRACEPTION 12/03/2011 ELISEO CUMMINGS DO V72.31 ELECTRIC KNIFE OPERATOR EXAM, ROUTINE 12/03/2011 ELISEO CUMMINGS DO V74.5 [...] INVOLVING MULTIPLE SITES 01/22/2012 MARTI PEARL APRN R 462 sore throat 01/22/2012 MARTI PEARL APRN [...] PEARL APRNRICIA R 462 sore throat 01/22/2012 DAE WINSTON MARTI R 780.52 INSOMNIA UNSPECIFIED 01/22/2012 FAYE CHAIDEZ APRN T 462 SORE THROAT 01/22/2012 FAYE CHAIDEZ APRN T 780.52 INSOMNIA UNSPECIFIED 01/22/2012 LEANDRO PEARL APRNRICIA R 462 SORE THROAT 01/22/2012 LEANDRO PEARL APRNRICIA R 780.52 INSOMNIA UNSPECIFIED 01/22/2012 MICHELE FREDERICK APRN N 462 SORE THROAT 01/22/2012 VIKY FREDERICK APRNCY N 780.52 INSOMNIA UNSPECIFIED 01/22/2012 HUONG MURPHY MD 462 SORE THROAT 01/22/2012 HUONG MURPHY MD 780.52 INSOMNIA UNSPECIFIED 01/22/2012 JOHNNY DOSS APRN 462 SORE THROAT 01/22/2012 JOHNNY DOSS APRN 780.52 INSOMNIA UNSPECIFIED 01/22/2012 CUMMINGS DO, [...] 05/03/2012 788.1 pain during urination (dysuria) 05/03/2012 ELISEO CUMMINGS DO 788.1 pain during urination (dysuria) 05/03/2012 FAYE [...] DURING URINATION (DYSURIA) 05/03/2012 ELISEO CUMMINGS DO 788.1 PAIN DURING URINATION (DYSURIA) 05/03/2012 ELISEO [...] CUMMINGS DO K 634.92 COMPLETE (SAB) 09/19/2012 FAYE CHAIDEZ APRN 574.20 CALCULUS OF GALLBLADDER WITHOUT CHOLECYSTITIS WITHOUT OBSTRUCTION 09/19/2012 FAYE CHAIDEZ APRN 634.92 COMPLETE (SAB) 09/19/2012 MARTI PEARL APRN 574.20 CALCULUS OF GALLBLADDER WITHOUT CHOLECYSTITIS WITHOUT OBSTRUCTION 09/19/2012 PEARL DISHING MACHINE OPERATOR, MARTI R 634.92 COMPLETE (SAB) 09/19/2012 FAYE CHAIDEZ APRN 574.20 CALCULUS OF GALLBLADDER WITHOUT CHOLECYSTITIS WITHOUT OBSTRUCTION 09/19/2012 FAYE CHAIDEZ APRN 634.92 COMPLETE (SAB) 09/19/2012 MARTI PEARL APRN R 574.20 CALCULUS OF GALLBLADDER WITHOUT CHOLECYSTITIS WITHOUT OBSTRUCTION 09/19/2012 MARTI PEARL APRN R 634.92 COMPLETE (SAB) 09/19/2012 [facility] N 574.20 CALCULUS OF GALLBLADDER WITHOUT CHOLECYSTITIS WITHOUT OBSTRUCTION 09/19/2012 COSTA LERNAERO CATRACHITO, MICHELE N 634.92 COMPLETE (SAB) 09/19/2012 HUONG MURPHY MD 574.20 CALCULUS OF GALLBLADDER WITHOUT CHOLECYSTITIS WITHOUT OBSTRUCTION 09/19/2012 HUONG MURPHY MD 634.92 COMPLETE (SAB) 09/19/2012 JOHNNY DOSS APRN A 574.20 CALCULUS OF GALLBLADDER WITHOUT CHOLECYSTITIS WITHOUT OBSTRUCTION 09/19/2012 JOHNNY DOSS APRN A 634.92 COMPLETE (SAB) 09/19/2012 AIME CUMMINGS DOA K 574.20 CALCULUS OF GALLBLADDER WITHOUT CHOLECYSTITIS WITHOUT OBSTRUCTION 09/19/2012 ZOILA SHEPHERD ELISEO K 634.92 COMPLETE (SAB) 09/19/2012 AIME CUMMINGS DOA K 574.20 CALCULUS OF GALLBLADDER WITHOUT CHOLECYSTITIS WITHOUT OBSTRUCTION 09/19/2012 AIME CUMMINGS DOA K 634.92 COMPLETE (SAB) 09/19/2012 CB OROSCO APRN 574.20 CALCULUS OF GALLBLADDER WITHOUT CHOLECYSTITIS WITHOUT OBSTRUCTION 09/19/2012 CB OROSCO APRN 634.92 COMPLETE (SAB) 09/19/2012 ZOILA SHEPHERD ELISEO K 574.20 CALCULUS OF GALLBLADDER WITHOUT CHOLECYSTITIS WITHOUT OBSTRUCTION 09/19/2012 ZOILA SHEPHERD ELISEO K 634.92 COMPLETE (SAB) 10/10/2012 ZOILA SHEPHERD ELISEO K 575.11 CHOLECYSTITIS, CHRONIC 10/10/2012 FAYE CHAIDEZ APRN 575.11 CHOLECYSTITIS, CHRONIC 10/10/2012 MARTI PEARL APRN 575.11 CHOLECYSTITIS, CHRONIC 10/10/2012 FAYE CHAIDEZ APRN 575.11 CHOLECYSTITIS, CHRONIC 10/10/2012 MARTI PEARL APRN R 575.11 CHOLECYSTITIS, CHRONIC 10/10/2012 MICHELE FREDERICK APRN N 575.11 CHOLECYSTITIS, CHRONIC 10/10/2012 HUONG MURPHY MD 575.11 CHOLECYSTITIS, CHRONIC 10/10/2012 JOHNNY DOSS APRN A 575.11 CHOLECYSTITIS, CHRONIC 10/10/2012 CUMMINGS DO ELISEO K 575.11 CHOLECYSTITIS, CHRONIC 10/10/2012 CUMMINGS DO ELISEO K 575.11 CHOLECYSTITIS, CHRONIC 10/10/2012 CB OROSCO APRN 575.11 CHOLECYSTITIS, CHRONIC 10/10/2012 CUMMINGS DO ELISEO K 575.11 CHOLECYSTITIS, CHRONIC 10/27/2012 Ot 574.20 10/31/2012 CUMMINGS DO ELISEO K 682.9 CELLULITIS AND ABSCESS OF UNSPECIFIED SITES 10/31/2012 FAYE CHAIDEZ APRN 682.9 CELLULITIS AND ABSCESS OF UNSPECIFIED SITES 10/31/2012 MARTI PEARL APRN R 682.9 CELLULITIS AND ABSCESS OF UNSPECIFIED SITES 10/31/2012 FAYE CHAIDEZ APRN 682.9 CELLULITIS AND ABSCESS OF UNSPECIFIED SITES 10/31/2012 MARTI PEARL APRN R 682.9 CELLULITIS AND ABSCESS OF UNSPECIFIED SITES [...] 486 PNEUMONIA UNSPECIFIED 02/04/2013 MARTI PEARL APRN R 486 PNEUMONIA UNSPECIFIED 02/04/2013 FAYE CHAIDEZ APRN 486 PNEUMONIA UNSPECIFIED 02/04/2013 MARTI PEARL APRN R 486 PNEUMONIA UNSPECIFIED 02/04/2013 MICHELE FREDERICK [...] 793.11 SOLITARY PULMONARY NODULE 05/01/2013 CUMMINGS DO, ELIESO K 793.11 SOLITARY PULMONARY NODULE 05/01/2013 AIME CUMMINGS DOA K 793.11 SOLITARY PULMONARY NODULE 05/01/2013 CB OROSCO APRN 793.11 SOLITARY PULMONARY NODULE 05/01/2013 CUMMINGS DO, ELISEO K 793.11 SOLITARY PULMONARY NODULE 05/26/2013 DAE DISHING MACHINE OPERATOR, MARTI R 034.0 STREP THROAT 05/26/2013 VIKY FREDERICK APRNCY N 034.0 STREP THROAT 05/26/2013 HUONG MURPHY MD 034.0 STREP THROAT 05/26/2013 SELAM WINSTON JOHNNY A 034.0 STREP THROAT 05/26/2013 AIME CUMMINGS DOA K 034.0 STREP THROAT 05/26/2013 AIME CUMMINGS DOA K 034.0 STREP THROAT 05/26/2013 CB OROSCO APRN 034.0 STREP THROAT 05/26/2013 CUMMINGS DO ELISEO K 034.0 STREP THROAT 09/05/2013 MICHELE FREDERICK APRN N 463 ACUTE TONSILLITIS 09/05/2013 MICHELE FREDERICK APRN N 784.1 THROAT PAIN 09/05/2013 HUONG MURPHY MD 463 ACUTE TONSILLITIS 09/05/2013 HUONG MURPHY MD 784.1 THROAT PAIN 09/05/2013 SELAM IWNSTON JOHNNY A 463 ACUTE TONSILLITIS 09/05/2013 ENMANUEL DOSS APRNIDI A 784.1 THROAT PAIN 09/05/2013 AIME CUMMINGS DOA K 463 ACUTE TONSILLITIS 09/05/2013 AIME CUMMINGS DOA K 784.1 THROAT PAIN 09/05/2013 AIME CUMMINGS DOA K 463 ACUTE TONSILLITIS 09/05/2013 CUMMINGS AIME SHEPHERDA K 784.1 THROAT PAIN 09/05/2013 CB OROSCO APRN 463 ACUTE TONSILLITIS 09/05/2013 CB OROSCO APRN 784.1 THROAT PAIN 09/05/2013 CUMMINGS DO ELISEO K 463 ACUTE TONSILLITIS 09/05/2013 CUMMINGS DO ELISEO K 784.1 THROAT PAIN 09/07/2013 HUONG MURPHY MD 787.91 DIARRHEA 09/07/2013 SELAM WINSTON JOHNNY A 787.91 DIARRHEA 09/07/2013 CUMMINGS DO, ELISEO K 787.91 DIARRHEA 09/07/2013 ELISEO CUMMINGS DO 787.91 DIARRHEA 09/07/2013 CB OROSCO APRN 787.91 DIARRHEA 09/07/2013 ELISEO CUMMINGS DO 787.91 DIARRHEA 11/15/2013 SELAMJOEY WINSTON JOHNNY A 629.81 RECURRENT LOSS WITHOUT CURRENT 11/15/2013 ELISEO CUMMINGS DO 629.81 RECURRENT LOSS WITHOUT CURRENT 11/15/2013 ELISEO CUMMINGS DO 629.81 RECURRENT LOSS WITHOUT CURRENT 11/15/2013 CB [...] 784.0 05/21/2014 Ot E937.0 04/01/2015 MACIE DALE, THEODORE Valenzuela Ot M25.511 PAIN IN RIGHT SHOULDER 04/01/2015 MACIE DALE, THEODORE Valenzuela Ot Z98.89 OTHER SPECIFIED POSTPROCEDURAL STATES 08/30/2015 NEHEMIAH HAMEED DISHING MACHINE OPERATOR Ot E28.2 POLYCYSTIC OVARIAN SYNDROME 10/30/2015 CHARLY BANGURA DISHING MACHINE OPERATOR Ot E28.2 POLYCYSTIC OVARIAN SYNDROME 11/01/2015 CHARLY BANGURA DISHING MACHINE OPERATOR Ot E28.2 POLYCYSTIC OVARIAN SYNDROME 08/06/2016 NEHEMIAH HAMEED DISHING MACHINE OPERATOR Ot E28.2 POLYCYSTIC OVARIAN SYNDROME 08/06/2016 CHARLY BANGURA DISHING MACHINE OPERATOR Ot E28.2 POLYCYSTIC OVARIAN SYNDROME 08/07/2016 NEHEMIAH HAMEED DISHING MACHINE OPERATOR Ot E28.2 POLYCYSTIC OVARIAN SYNDROME 11/13/2016 NEHEMIAH HAMEED DISHING MACHINE OPERATOR Ot E28.2 POLYCYSTIC OVARIAN SYNDROME 11/13/2016 CHARLY BANGURA DISHING MACHINE OPERATOR Ot E28.2 POLYCYSTIC OVARIAN SYNDROME 11/14/2016 RACQUEL FITCH MD Ot G43.909 MIGRAINE, UNSP, NOT INTRACTABLE, WITHOUT 11/14/2016 RACQUEL FITCH MD Ot L98.9 DISORDER OF THE SKIN AND SUBCUTANEOUS TI 11/14/2016 RACQUEL FITCH MD Ot T78.40XA ALLERGY, UNSPECIFIED, INITIAL ENCOUNTER 11/14/2016 RACQUEL FITCH MD Ot Z86.19 PERSONAL HISTORY OF OTHER INFECTIOUS AND 11/14/2016 RACQUEL FITCH MD Ot Z87.448 PERSONAL HISTORY OF OTHER DISEASES OF UR 11/14/2016 NEHEMIAH HAMEED DISHING MACHINE OPERATOR Ot E28.2 POLYCYSTIC OVARIAN SYNDROME 11/14/2016 CHARLY BANGURA DISHING MACHINE OPERATOR Ot E28.2 POLYCYSTIC OVARIAN SYNDROME 11/16/2016 RACQUEL FITCH MD Ot G43.909 MIGRAINE, UNSP, NOT INTRACTABLE, WITHOUT 11/16/2016 RACQUEL FITCH MD Ot L98.9 DISORDER OF THE SKIN AND SUBCUTANEOUS TI 11/16/2016 RACQUEL FITCH MD Ot T78.40XA ALLERGY, UNSPECIFIED, INITIAL ENCOUNTER 11/16/2016 LITTLE DALE, RACQUEL Vargas Ot Z86.19 PERSONAL HISTORY OF OTHER INFECTIOUS AND 11/16/2016 LITTLE DALE, RACQUEL Vargas Ot Z87.448 PERSONAL HISTORY OF OTHER DISEASES OF UR 12/22/2016 NEHEMIAH HAMEED DISHING MACHINE OPERATOR Ot E28.2 POLYCYSTIC OVARIAN SYNDROME 12/22/2016 CHARLY BANGURA DISHING MACHINE OPERATOR Ot E28.2 POLYCYSTIC OVARIAN SYNDROME 12/28/2016 ROJAS TYLER MD Ot N83.201 UNSPECIFIED OVARIAN CYST, RIGHT SIDE 12/28/2016 ROJAS TYLER MD Ot O26.891 OTH RELATED CONDITIONS, FIRST 12/28/2016 ROJAS TYLER MD Ot Z3A.01 LESS THAN 8 WEEKS GESTATION OF 12/28/2016 NEHEMIAH HAMEED DISHING MACHINE OPERATOR Ot E28.2 POLYCYSTIC OVARIAN SYNDROME 12/28/2016 CHARLY BANGURA DISHING MACHINE OPERATOR Ot E28.2 POLYCYSTIC OVARIAN SYNDROME 12/28/2016 ROJAS TYLER MD Ot N83.201 UNSPECIFIED OVARIAN CYST, RIGHT SIDE 12/28/2016 ROJAS TYLER MD Ot O26.891 OTH RELATED CONDITIONS, FIRST 12/28/2016 ROJAS TYLER MD Ot Z3A.01 LESS THAN 8 WEEKS GESTATION OF 01/29/2017 NEHEMIAH HAMEED DISHING MACHINE OPERATOR Ot E28.2 POLYCYSTIC OVARIAN SYNDROME 01/29/2017 CHARLY BANGURA DISHING MACHINE OPERATOR Ot E28.2 POLYCYSTIC OVARIAN SYNDROME 01/29/2017 ROJAS TYLER MD Ot N83.201 UNSPECIFIED OVARIAN CYST, RIGHT SIDE 01/29/2017 ROJAS TYLER MD Ot O26.891 OTH RELATED CONDITIONS, FIRST 01/29/2017 ROJAS TYLER MD Ot Z3A.01 LESS THAN 8 WEEKS GESTATION OF 01/29/2017 JER ARGUELLO DO Ot G43.909 MIGRAINE, UNSP, NOT INTRACTABLE, WITHOUT 01/29/2017 JER ARGUELLO DO Ot O23.41 UNSP INFCT OF URINARY TRACT IN 01/29/2017 JER ARGUELLO DO Ot O99.351 DISEASES OF THE NERVOUS SYS COMP PREGNAN 01/29/2017 JER ARGUELLO DO Ot O99.89 OT DISEASES AND CONDITIONS COMPL PREG/C 01/29/2017 JER ARGUELLO DO Ot Z3A.12 12 WEEKS GESTATION OF 01/29/2017 JER ARGUELLO DO Ot Z87.891 PERSONAL HISTORY OF NICOTINE DEPENDENCE 01/29/2017 BARRINGTONCANDINEHEMIAH DISHING MACHINE OPERATOR Ot E28.2 POLYCYSTIC OVARIAN SYNDROME 01/29/2017 CHARLY BANGURA DISHING MACHINE OPERATOR Ot E28.2 POLYCYSTIC OVARIAN SYNDROME 01/29/2017 JAYSON DALE, ROJAS Reyna Ot N83.201 UNSPECIFIED OVARIAN CYST, RIGHT SIDE 01/29/2017 JAYSON DALE, ROJAS Reyna Ot O26.891 OT RELATED CONDITIONS, FIRST 01/29/2017 JAYSON DALE, ROJAS Reyna Ot Z3A.01 LESS THAN 8 WEEKS GESTATION OF Procedures Code Description [place] [address] STREP A (IN-HOUSE) 05/03/2012 83912 UA LONG DIP 05/03/2012 92774 CULTURE URINE 05/03/2012 48430 UA W/ CULTURE IF INDICATED 08/27/2012 05338 CULTURE URINE 08/27/2012 95621 URINE TEST (IN- HOUSE) 09/19/2012 YELENA BAUER 09/21/2012 97032 STREP A (IN-HOUSE) 04/05/2013 81383 XRAY CHEST 2 VIEW 04/26/[address] CHEST W/DYE 04/26/2013 67604 OXIMETRY 04/26/2013 66802 STREP A (IN-HOUSE) 05/26/2013 27255 INFLUENZA A & B (IN-HOUSE) 05/26/2013 77580 STREP A (IN-HOUSE) 09/05/2013 91397 CLOSTRIDIUM (C-DIFF) 09/08/2013 55290 ROUTINE VENIPUNCTURE 11/08/2013 11216 TEST, URINE (IN- HOUSE) 11/08/2013 65197 CBC 11/08/2013 [id number] GFR CALC (RESULT ONLY) 11/08/2013 53714 CMP 11/08/2013 71348 LIPID PANEL 11/08/2013 65297 TSH 11/08/2013 33309 INSULIN LEVEL 11/09/2013 45709 TEST, URINE (IN- HOUSE) 11/15/2013 Results Test Result Range Complete urinalysis with reflex to culture - 01/29/17 18:15 Urine color determination YELLOW NRG Urine clarity determination CLEAR NRG Urine pH measurement by test strip 6 5-9 Specific gravity of urine by test strip 1.025 1.016- 1.022 Urine protein assay by test strip, semi-quantitative 1+ NEGATIVE Urine glucose detection by automated test strip NEGATIVE NEGATIVE Erythrocytes detection in urine sediment by light microscopy NEGATIVE NEGATIVE Urine ketones detection by automated test strip NEGATIVE NEGATIVE Urine nitrite detection by test strip NEGATIVE NEGATIVE Urine total bilirubin detection by test strip NEGATIVE NEGATIVE Urine urobilinogen measurement by automated test strip (mass/volume) NORMAL NORMAL Urine leukocyte esterase detection by dipstick 1+ NEGATIVE Automated urine sediment erythrocyte count by microscopy (number/high power field) NONE NRG Automated urine sediment leukocyte count by microscopy (number/high power field ) RARE NRG Bacteria detection in urine sediment by light microscopy MODERATE NRG Squamous epithelial cells detection in urine sediment by light microscopy 5-10 NRG Crystals detection in urine sediment by light microscopy PRESENT NRG Casts detection in urine sediment by light microscopy NONE NRG Mucus detection in urine sediment by light microscopy NEGATIVE NRG Complete urinalysis with reflex to culture NO NRG Calcium oxalate crystals detection in urine sediment by light microscopy MODERATE NRG Bacterial urine culture - 01/29/17 18:15 URINE CULTURE RESULTS <10,000/ML NRG Complete blood count (CBC) with automated white blood cell (WBC) differential - 01/29/17 18:23 Blood leukocytes automated count (number/volume) 8.5 10*3/uL 4.3-11.0 Blood erythrocytes automated count (number/volume) 4.19 10*6/uL 4.35-5.85 Venous blood hemoglobin measurement (mass/volume) 14.0 g/dL 11.5-16.0 Blood hematocrit (volume fraction) 40 % 35-52 Automated erythrocyte mean corpuscular volume 96 [foz_us] 80-99 Automated erythrocyte mean corpuscular hemoglobin (mass per erythrocyte) 33 pg 25-34 Automated erythrocyte mean corpuscular hemoglobin concentration measurement ( mass/volume) 35 g/dL 32-36 Automated erythrocyte distribution width ratio 12.4 % 10.0-14.5 Automated blood platelet count (count/volume) 261 10*3/uL 130-400 Automated blood platelet mean volume measurement 10.8 [foz_us] 7.4-10.4 Automated blood neutrophils/100 leukocytes 67 % 42-75 Automated blood lymphocytes/100 leukocytes 28 % 12-44 Blood monocytes/100 leukocytes 5 % 0-12 Automated blood eosinophils/100 leukocytes 1 % 0-10 Automated blood basophils/100 leukocytes 0 % 0-10 Blood neutrophils automated count (number/volume) 5.7 10*3 1.8-7.8 Blood lymphocytes automated count (number/volume) 2.4 10*3 1.0-4.0 Blood monocytes automated count (number/volume) 0.4 10*3 0.0-1.0 Automated eosinophil count 0.1 10*3/uL 0.0-0.3 Automated blood basophil count (count/volume) 0.0 10*3/uL 0.0-0.1 Comprehensive metabolic panel - 01/29/17 18:23 Serum or plasma sodium measurement (moles/volume) 139 mmol/L 135-145 Serum or plasma potassium measurement (moles/volume) 3.4 mmol/L 3.6-5.0 Serum or plasma chloride measurement (moles/volume) 106 mmol/L 98-107 Carbon dioxide 22 mmol/L 21-32 Serum or plasma anion gap determination (moles/volume) 11 mmol/L 5-14 Serum or plasma urea nitrogen measurement (mass/volume) 6 mg/dL 7-18 Serum or plasma creatinine measurement (mass/volume) 0.60 mg/dL 0.60-1.30 Serum or plasma urea nitrogen/creatinine mass ratio 10 NRG Serum or plasma creatinine measurement with calculation of estimated glomerular filtration rate > NRG Serum or plasma glucose measurement (mass/volume) 90 mg/dL 70-105 Serum or plasma calcium measurement (mass/volume) 9.2 mg/dL 8.5-10.1 Serum or plasma total bilirubin measurement (mass/volume) 0.3 mg/dL 0.1-1.0 Serum or plasma alkaline phosphatase measurement (enzymatic activity/volume) 65 U/L 40-136 Serum or plasma aspartate aminotransferase measurement (enzymatic activity/ volume) 24 U/L 5-34 Serum or plasma alanine aminotransferase measurement (enzymatic activity/volume ) 30 U/L 0-55 Serum or plasma protein measurement (mass/volume) 7.7 g/dL 6.4-8.2 Serum or plasma albumin measurement (mass/volume) 4.3 g/dL 3.2-4.5 Serum or plasma amylase measurement (enzymatic activity/volume) - 01/29/17 18: 23 Serum or plasma amylase measurement (enzymatic activity/volume) 52 U /L 25-125 Lipase - 01/29/17 18:23 Lipase 23 U/L 8-78 ABO+Rh group - 01/29/17 18:23 ABO+Rh group AP NRG Transfusion band number [id number] NRG Serum or plasma choriogonadotropin measurement (units/volume) - 01/29/17 18:23 Serum or plasma choriogonadotropin measurement (units/volume) 34957 m[iU]/mL <5 Encounters ACCT No. Visit Date/Time Discharge Status Pt. Type Provider Facility Loc./Unit Complaint [id number] 04/03/2014 13:43:00 04/03/2014 23:59:59 CLS Outpatient ELISEO CUMMINGS DO [id number] 03/15/2014 15:13:00 03/15/2014 23:59:59 CLS Outpatient CB OROSCO APRN [id number] 01/04/2014 14:31:00 01/04/2014 23:59:59 CLS Outpatient ELISEO CUMMINGS DO [id number] 12/11/2013 10:19:00 12/11/2013 23:59:59 CLS Outpatient ELISEO CUMMINGS DO [id number] 11/15/2013 15:11:00 11/15/2013 23:59:59 CLS Outpatient JOHNNY DOSS APRN [id number] 09/08/2013 14:40:00 09/08/2013 23:59:59 CLS Outpatient HUONG MURPHY MD [id number] 09/05/2013 10:53:00 09/05/2013 23:59:59 CLS Outpatient MICHELE FREDERICK APRN [id number] 05/26/2013 12:38:00 05/26/2013 23:59:59 CLS Outpatient MARTI PEARL APRN [id number] 04/26/2013 17:34:00 04/26/2013 23:59:59 CLS Outpatient FAYE CHAIDEZ APRN [id number] 04/05/2013 15:32:00 04/05/2013 23:59:59 CLS Outpatient MARTI PEARL APRN [id number] 02/04/2013 09:36:00 02/04/2013 23:59:59 CLS Outpatient FAYE CHAIDEZ APRN [id number] 12/20/2012 14:53:00 12/20/2012 23:59:59 CLS Outpatient ZOILA SHEPHERD ELISEO Santana [id number] 05/03/2012 13:12:00 05/03/2012 23:59:59 CLS Outpatient DAE WINSTON MARTI R [id number] 09/19/2012 10:15:00 Document Registration [id number] 08/27/2012 13:06:00 Document Registration [id number] 03/16/2017 13:44:00 03/16/2017 23:59:59 CLS Outpatient ROJAS TYLER MD [facility] RAD SURVEY [id number] 01/29/2017 17:51:00 01/29/2017 19:55:00 DIS Emergency JER ARGUELLO DO [facility] ER ABD PAIN [id number] 12/22/2016 12:32:00 12/22/2016 23:59:59 CLS Outpatient ROJAS TYLER MD [facility] RAD LLQ PAIN, [id number] 11/13/2016 22:18:00 11/14/2016 00:02:00 DIS Emergency LITTLE DALE, RACQUEL Vargas [facility] ER RASH [id number] 10/29/2015 11:08:00 10/29/2015 23:59:59 CLS Outpatient CHARLY BANGURA APRN [facility] RAD E28.2 [id number] 05/17/2015 13:40:00 05/17/2015 23:59:59 CLS Outpatient NEHEMIAH HAMEED APRN [facility] RAD PCOS [id number] 04/01/2015 08:51:00 04/01/2015 09:38:00 DIS Emergency THEODORE QUIJANO MD [facility] ER RIGHT UPPER ARM PAIN/ SWELLING [id number] 01/11/2014 11:15:00 01/11/2014 13:37:00 DIS Emergency [id number] 05/09/2013 15:49:00 05/09/2013 23:59:59 CLS Outpatient [id number] 03/20/2013 16:04:00 03/20/2013 18:16:00 DIS Emergency [id number] 11/08/2012 19:55:00 11/08/2012 20:52:00 DIS Emergency [id number] 10/27/2012 11:11:00 10/27/2012 16:40:00 DIS Outpatient [id number] 10/21/2012 12:44:00 10/21/2012 23:59:59 CLS Outpatient [id number] 09/15/2012 21:24:00 09/16/2012 00:36:00 DIS Emergency [id number] 05/20/2014 18:40:00 Document Registration
[2017-03-27 06:57] LABS: BILIRUBIN,URINE NEGATIVE (NEGATIVE); CLARITY,URINE CLEAR; COLOR,URINE YELLOW; GLUCOSE, URINE (UA) NEGATIVE (NEGATIVE); KETONES,URINE NEGATIVE (NEGATIVE); LEUKOCYTE ESTERASE ,URINE 1+ (NEGATIVE); NITRITE,URINE NEGATIVE (NEGATIVE); PH,URINE 6 (5-9); PROTEIN,URINE NEGATIVE (NEGATIVE); UROBILINOGEN,URINE NORMAL (NORMAL)
[2017-03-27 07:09] LABS: BACTERIA,URINE MODERATE /HPF; WBC,URINE 0-2 /HPF
--- NOTE | 2017-03-27 07:23 | ED GU-Female ---
General Chief Complaint: Abdominal/GI Problems Stated Complaint: 19 WEEKS & 5 DAYS PREG,LOWER ABD CRAMPING Nursing Triage Note: PT TO ED 8 W/ C/O LOWER ABD PAIN ONSET 0230 THIS AM. REPORTS PAIN IS CONSTANT BUT DOES GET WORSE "IN WAVES". NO OTHER C/O VOICED Nursing Sepsis Screen: No Definite Risk Source: patient Exam Limitations: no limitations History of Present Illness Time seen by provider: 07:00 Initial Comments Here with lower abdominal cramping started early this morning. Reports that it is coming in waves. Denies dysuria or diarrhea. Denies blood in her stool. Has a little bit of vaginal discharge. She is not sure about her dates she had an ultrasound not to long ago that had her at a little over 19 weeks. Was concerned because she's had approximately 6 or 7 miscarriages including one at 18 weeks and one at 8-10 weeks in the other ones earlier. She has one live child. Denies recent trauma. Denies fever or chills. Timing/Duration: this morning Severity/Quality: moderate Location: suprapubic Radiation: none Activities at Onset: sleep Sexual Mauldin History: less than 2 months ago, single partner Associated Symptoms: abdominal pain, No fever/chills, No lower back pain, No nausea/vomiting, No urinary frequency Allergies and Home Medications Allergies Coded Allergies: strawberry (Verified Allergy, Severe, 11/13/16) cyclobenzaprine (Verified Allergy, Unknown, 11/27/16) latex (Verified Allergy, Unknown, 05/20/14) acetaminophen (Verified Adverse Reaction, Unknown, CONFUSION, 05/21/14) butalbital (Verified Adverse Reaction, Unknown, CONFUSION, 05/21/14) caffeine (Verified Adverse Reaction, Unknown, CONFUSION, 05/21/14) Home Medications Cyclobenzaprine HCl 10 Mg Tablet, 10 MG PO Q8H PRN for SPASMS, #15 Prescribed by: THEODORE QUIJANO on 04/01/15 0937 Famotidine 20 Mg Tablet, 20 MG PO BID, #20 Prescribed by: RACQUEL HOLT on 11/13/16 2350 Nitrofurantoin Monohyd/M-Cryst 100 Mg Capsule, 100 MG PO BID, #20 Prescribed by: JER ARGUELLO on 01/29/17 1946 Prednisone 20 Mg Tab, 20 MG PO DAILY, #4 Prescribed by: RACQUEL HOLT on 11/13/16 2350 Tramadol HCl 50 Mg Tablet, 100 MG PO Q4H, (Reported) [Motrin] , 800 MG PO Q8H, (Reported) Constitutional: see HPI Respiratory: no symptoms reported Cardiovascular: no symptoms reported Gastrointestinal: see HPI : Yes LMP: Nov 02, 2016 Musculoskeletal: no symptoms reported All Other Systemes Reviewed Negative Unless Noted: Yes Past Tdojmwo-Ntcvit-Dvwxpb Hx Patient Social History Alcohol Use: Denies Use Recreational Drug Use: No Smoking Status: Former Smoker Former Smoker, Quit: Mar 29, 2012 2nd Hand Smoke Exposure: No Recent Foreign Travel: No Contact w/Someone Who Travel: No Recent Infectious Disease Expo: No Recent Hopitalizations: No Physical Abuse: No Sexual Abuse: No Mistreated: No Fear: No Immunizations Up To Date Tetanus Booster (TDap): Unknown PED Vaccines UTD: No Seasonal Allergies Seasonal Allergies: No Surgeries History of Surgeries: Yes (D&C X 1 ; WISDOM TEETH REMOVED) Surgeries: Gallbladder Respiratory History of Respiratory Disorde: No Cardiovascular History of Cardiac Disorders: No Neurological History of Neurological Disord: Yes Neurological Disorders: Headaches /Migraines Reproductive System Hx : 7 Hx Para: 1 Hx Total # of Abortions (Spona: 5 Hx Reproductive Disorders: Yes Sexually Transmitted Disease: Yes (VAGINAL HERPES, NO TREATMENT) Female Reproductive Disorders: Menstrual Problems, Polycystic Ovarian Dis Genitourinary History of Genitourinary Disor: No Gastrointestinal History of Gastrointestinal Di: No Musculoskeletal History of Musculoskeletal Dis: No Endocrine History of Endocrine Disorders: Yes (INSULIN RESISTANCE; PCOS) Endocrine Disorders: Adrenal Disease HEENT Hearing Impairment: Hard of Hearing Cancer History of Cancer: No Psychosocial History of Psychiatric Problem: No Suicide Risk Score: 0 Integumentary History of Skin or Integumenta: No Blood Transfusions History of Blood Disorders: No Reviewed Nursing Assessment Reviewed/Agree w Nursing PMH: Yes Family Medical History Significant Family History: No Pertinent Family Hx Physical Exam Vital Signs Vital Sign - Last 12Hours 03/27/17 06:38 Temp 97.7 Pulse 93 Resp 20 B/P (MAP) 128/82 (97) Pulse Ox 100 O2 Delivery Room Air Capillary Refill : Less Than 3 Seconds General Appearance: WD/WN, no apparent distress HEENT: PERRL/EOMI, pharynx normal Neck: full range of motion, supple Cardiovascular: regular rate, rhythm, no murmur Respiratory: lungs clear, normal breath sounds Gastrointestinal: soft, tenderness (suprapubic region) Back: normal inspection, no CVA tenderness, no vertebral tenderness Extremities: non-tender, normal inspection Neurologic/Psychiatric: alert, oriented x 3 Skin: normal color, warm/dry Progress/Results/Core Measures Suspected Sepsis Recent Fever Within 48 Hours: No Infection Criteria Present: None New/Unexplained Altered Menta: No Sepsis Screen: No Definite Risk Sepsis Diagnosis: SIRS Temperature:97.7 Pulse: 93 Respiratory Rate: 20 Blood Pressure 128 /82 Mean: 97 Results/Orders Lab Results Laboratory Tests Test 03/27/17 06:46 Range/Units Urine Color YELLOW Urine Clarity CLEAR Urine pH 6 5-9 Urine Specific [place] 1.025 H 1.016-1.022 Urine Protein NEGATIVE NEGATIVE Urine Glucose (UA) NEGATIVE NEGATIVE Urine Ketones NEGATIVE NEGATIVE Urine Nitrite NEGATIVE NEGATIVE Urine Bilirubin NEGATIVE NEGATIVE Urine Urobilinogen NORMAL NORMAL MG/DL Urine Leukocyte Esterase 1+ H NEGATIVE Urine RBC (Auto) NEGATIVE NEGATIVE Urine RBC NONE /HPF Urine WBC 0-2 /HPF Urine Squamous Epithelial Cells 10-25 H /HPF Urine Crystals NONE /LPF Urine Bacteria MODERATE H /HPF Urine Casts NONE /LPF Urine Mucus NEGATIVE /LPF Urine Culture Indicated NO My Orders Orders - THEODORE QUIJANO MD Ua Culture If Indicated (03/27/17 06:32) Vital Signs/I&O Vital Sign - Last 12Hours 03/27/17 06:38 Temp 97.7 Pulse 93 Resp 20 B/P (MAP) 128/82 (97) Pulse Ox 100 O2 Delivery Room Air Capillary Refill : Less Than 3 Seconds Blood Pressure Mean: 97 Progress Note : Progress Note Seen and evaluated. UA ordered. Bedside ultrasound completed. heart tones at approximately 135. Positive movement. Approximately 20-5/7 by femur length. I did review patient's previous ultrasound on 03/16/2017 which did show her at 19-3/7 on average by multiple measurements. This would put her at approximately 21 weeks currently. UA was evaluated and shows no significant findings. Due to patient's history of miscarriages including weight miscarriage , patient will go to the OB floor for monitoring. Discharged to before with return precautions. Patient verbalize understanding instructions and agreement with plan. Departure Impression Impression: Primary Impression: Lower abdominal pain Additional Impression: and not yet delivered in second trimester Disposition: 01 HOME, SELF-CARE Condition: Stable Departure-Patient Inst. Decision time for Depature: 07:33 Referrals: ROJAS TYLER MD (PCP/Family) Primary Care Physician Patient Instructions: Acute Abdomen (Belly Pain), Adult (DC) Add. Discharge Instructions: All discharge instructions reviewed with patient and/or family. Voiced understanding. Go to the OB floor for further monitoring. Follow up with your OB doctor within one week for recheck and further evaluation. Return for other concerns as needed. THEODORE QUIJANO MD Mar 27, 2017 07:23
[2017-03-27 07:27] VITALS: BP 128/82
[2017-03-27] MEDS ORDERED: MULT-228 PO (08:46)
[2017-03-27] MEDS ORDERED: METF1000 PO (08:47)
[2017-03-27] MEDS ORDERED: FLUT9.9S NS (08:47)
[2017-03-27] MEDS ORDERED: NITR-65 PO (08:58)
== END 2017-03-27 07:42 | disposition home or self-care (01) ==
LOC: EDUNIT# 06:01 → ER 06:04
DX: O99.89 Other specified diseases and conditions complicating pregnancy, childbirth and the puerperium (principal); R10.30 Lower abdominal pain, unspecified; O99.352 Diseases of the nervous system complicating pregnancy, second trimester; G43.909 Migraine, unspecified, not intractable, without status migrainosus; Z87.448 Personal history of other diseases of urinary system; Z3A.19 19 weeks gestation of pregnancy; Z87.891 Personal history of nicotine dependence
CPT/HCPCS: 81000; 99282

== ENCOUNTER 2017-03-27 07:30 | Outpatient (CLI) | payer MEDICAID ==
[~2017-03-27] VITALS: Ht 175.3 cm; Wt 104.8 kg
[2017-03-27 08:01] VITALS: BP 117/78
[2017-03-27 08:08] LABS: AMPHETAMINE SCREEN, URINE NEGATIVE (NEGATIVE); BARBITURATE SCREEN URINE NEGATIVE (NEGATIVE); BENZODIAZEPINES SCREEN URINE NEGATIVE (NEGATIVE); CANNABINOID SCREEN, URINE NEGATIVE (NEGATIVE); COCAINE SCREEN URINE NEGATIVE (NEGATIVE); METHADONE STAT NEGATIVE (NEGATIVE); METHAMPHETAMINE SCREEN URINE S NEGATIVE (NEGATIVE); OPIATE SCREEN URINE NEGATIVE (NEGATIVE); OXYCODONE STAT NEGATIVE (NEGATIVE); PROPOXYPHENE STAT NEGATIVE (NEGATIVE); TRICYCLIC ANTIDEPRESSANTS SCRE NEGATIVE (NEGATIVE)
[2017-03-27] MEDS ORDERED: MULT-228 PO (08:46)
[2017-03-27] MEDS ORDERED: FLUT9.9S NS (08:47)
[2017-03-27] MEDS ORDERED: METF1000 PO (08:47)
[2017-03-27] MEDS ORDERED: NITR-65 PO (08:58)
--- NOTE | 2017-03-27 10:23 | Progress Note (SOAP) ---
Subjective Subjective/Events-last exam 27 year old at 19 5/7 wks dated by a 6-7 wk US presented to the ED this morning with complaints of dysuria. She was evaluated in the ED and had a bedside US by the ED physician, then was sent to L&D when the bedside US showed the fetus was ~20 wks in size. Patient denies any cramping, bleeding, vaginal discharge, loss of fluid, and reports good movement. She reports that she was just nervous because she has a history of multiple losses, as well as a history of PPPROM and delivery at 27 wks gestation with her first . Her first was when she was 18 and she placed that child for adoption, this is the first child for her and her current significant other. Review of Systems Date Seen by Provider: Mar 27, 2017 Time Seen by Provider: 10:00 General: No Chills, No Night Sweats HEENT: No Head Aches, No Visual Changes, No Eye Pain, No Sore Throat Pulmonary: No Dyspnea Cardiovascular: No: Chest Pain, Palpitations, Paroxysmal Noc. Dyspnea, Lt Headedness Gastrointestinal: No: Nausea, Vomiting, Abdominal Pain, Diarrhea, Constipation Genitourinary: Dysuria, Frequency, No Hematuria Musculoskeletal: No: neck pain, back pain Neurological: No: Weakness, Numbness, Incoordination, Change in speech, Confusion, Seizures Objective Exam Last Set of Vital Signs Capillary Refill : General: Alert, Oriented X3, Cooperative, No Acute Distress HEENT: Atraumatic, Mucous Memb Moist/[place] Neck: Supple, No JVD Abdomen: Soft, No Tenderness, Other (gravid uterus) Extremities: No Clubbing, No Cyanosis, No Tenderness/Swelling Skin: No Rashes, No Significant Lesion Neuro: Normal Gait, Normal Speech, Normal Tone, Cranial Nerves 3-12 NL Psych/Mental Status: Mental Status NL, Mood NL Results/Procedures Lab Laboratory Tests 03/27/17 06:46: Urine Opiates Screen NEGATIVE, Urine Oxycodone Screen NEGATIVE, Urine Methadone Screen NEGATIVE, Urine Propoxyphene Screen NEGATIVE, Urine Barbiturates Screen NEGATIVE, Ur Tricyclic Antidepressants Screen NEGATIVE, Urine Phencyclidine Screen NEGATIVE, Urine Amphetamines Screen NEGATIVE, Urine Methamphetamines Screen NEGATIVE, Urine Benzodiazepines Screen NEGATIVE, Urine Cocaine Screen NEGATIVE, Urine Cannabinoids Screen NEGATIVE Assessment/Plan Assessment/Plan Admission Dx Threatened Labor Dysuria History of delivery History of multiple miscarriage Plan Patient was assessed by labor and delivery recruiter, FHR doppler 140, no contractions per toco, abdomen palpates soft and nontender, no contractions palpated or reported by patient. Patient offered speculum exam to assess for any dilation given her history of delivery, but patient declined. Patient with UA that shows potential UTI, although likely contaminated specimen. Will treat with macrobid 100 mg BID based on symptoms, and pt's history of delivery. Pt instructed to take tylenol for her discomfort and get maternity support belt to help with round ligament discomfort. Pt has appointment on 04/08/[address] Pearce - instructed to keep that appointment, but to call on Wednesday if she is not feeling better and she can be seen in clinic next week. If she has contractions, bleeding, vaginal discharge, she has been instructed to return to labor and delivery. Pt verbalizes understanding and reports that she is comfortable going home and keeping her appointment with Dr. Pearce; she will call if she feels she needs to be seen sooner. BENIGNO JETER DO Mar 27, 2017 10:23
== END 2017-03-27 09:47 | disposition home or self-care (01) ==
LOC: WSo 07:30
PROVIDERS: ATTEND Family Medicine
DX: O47.02 False labor before 37 completed weeks of gestation, second trimester (principal); O99.89 Other specified diseases and conditions complicating pregnancy, childbirth and the puerperium; R30.0 Dysuria; O26.22 Pregnancy care for patient with recurrent pregnancy loss, second trimester; O09.292 Supervision of pregnancy with other poor reproductive or obstetric history, second trimester; Z3A.19 19 weeks gestation of pregnancy
CPT/HCPCS: 80306; 99212

== ENCOUNTER 2017-04-05 22:09 | Outpatient (CLI) | payer MEDICAID ==
[~2017-04-05] VITALS: Ht 175.3 cm; Wt 103.9 kg
[~2017-04-05 22:09] MED LIST changes: +FLUT9.9S NS; +METF1000 PO; +MULT-228 PO
[2017-04-05 22:45] VITALS: BP 111/73
[2017-04-05] MEDS ORDERED: NS IV 1000 ML 1,000 ML IV SCH (23:30)
[2017-04-05] MEDS ORDERED: ONDANSETRON 4 MG/2 ML (SDV) Z0FRAN IVP ONE (23:30)
[2017-04-06] MEDS ORDERED: INFLUENZA TRIvalent 2017-2018 0.5 ML/45 MCG SYR IM ONE (07:15)
--- NOTE | 2017-04-06 13:23 | Physician Query-Final Dx ---
FREDI FNIK 04/06/17 1323: Clinic Account Progress/Dx Physician Query: Please give diagnosis Date of Service Apr 05, 2017 at 22:09 ELISEO CUMMINGS DO 04/08/17 0835: Clinic Account Progress/Dx DIAGNOSIS: Diagnosis 1. 21 week GA 2. n/v/diarrhea secondary to gastroenteritis; likely viral in origin FREDI FINK Apr 06, 2017 13:23 ELISEO CUMMINGS DO Apr 08, 2017 08:35
== END 2017-04-06 01:25 | disposition home or self-care (01) ==
LOC: WSo 22:09 → LDRP 22:09 → WSo 04-06 01:25
PROVIDERS: ATTEND Family Medicine
DX: O99.612 Diseases of the digestive system complicating pregnancy, second trimester (principal); K52.9 Noninfective gastroenteritis and colitis, unspecified; Z3A.21 21 weeks gestation of pregnancy
CPT/HCPCS: 96361; 96374; 99212

== ENCOUNTER → 2017-04-19 | Outpatient (CLI) | payer MEDICAID ==
--- NOTE | 2017-04-19 16:44 | Diagnostic Imaging Report ---
INDICATION: patient, incomplete anatomical survey on previous study. TECHNIQUE: Multiple real-time grayscale images were obtained over the gravid uterus. COMPARISON: 03/16/2017. FINDINGS: Single live intrauterine fetus is seen measuring 24 weeks 2 days in size, this is about 8 days larger than expected from original dates. Fetus is in cephalic presentation with grade 1 placenta. Placenta is fundal with no evidence of previa. heart rate is 152 beats per minute. Cervical length is 3.9 cm. Maternal adnexa were not visualized. survey shows normal-appearing kidneys and bladder and stomach and intracranial ventricles. There is normal appearing three-vessel cord and cord insertion. spine and four-chamber heart view were still not well visualized. Biometrical measurements are as follows: Biparietal 5.79 cm, age 23 weeks 6 days. Head circumference 21.49 cm, age 23 weeks 4 days. Abdominal circumference 19.63 cm, age 24 weeks 3 days. Femur length 4.54 cm, age 25 weeks 1 days. Sonographic estimate age: 24 weeks 2 days. Sonographic estimated date of delivery: 08-07-17. Estimated Weight: 699 gm (+/- 102 gm). LMP percentile: 94%. heart rate: 152 beats per minute. number: 1 of 1. IMPRESSION: Single live intrauterine fetus measuring 24 weeks 2 days in size, this is about 8 days larger than expected from original dates. survey shows no detectable abnormalities, although spine and four-chamber heart is still not well visualized. Dictated by: Dictated on workstation # [id number]
== END ==
LOC: RAD 15:38
PROVIDERS: ATTEND Family Medicine
DX: Z36.89 Encounter for other specified antenatal screening (principal); Z3A.24 24 weeks gestation of pregnancy
CPT/HCPCS: 76816

== ENCOUNTER 2017-05-18 13:35 | Outpatient (CLI) | payer MEDICAID ==
[~2017-05-18] VITALS: Ht 175.3 cm; Wt 101.7 kg
[2017-05-18 14:15] VITALS: BP 129/80
--- NOTE | 2017-05-18 16:09 | Diagnostic Imaging Report ---
INDICATION: Decreased movement. FINDINGS: There is a single live fetus in a breech presentation. The heart rate was recorded at 155 BPM. The amniotic fluid index is 10.4 cm. The placenta is posterior. The biophysical profile score is 6 out of 8 with a 2 point deduction given for lack of breathing movements. IMPRESSION: Biophysical profile score of 6 out of 8 points. Dictated by: Dictated on workstation # [id number]
--- NOTE | 2017-05-19 12:55 | Physician Query-Final Dx ---
CASH HANSON 05/19/17 1255: Clinic Account Progress/Dx Physician Query: Please give diagnosis Date of Service May 18, 2017 at 13:35 BENIGNO JETER DO 05/19/17 1949: Clinic Account Progress/Dx DIAGNOSIS: Diagnosis Decreased Movement CASH HANSON May 19, 2017 12:55 BENIGNO JETER DO May 19, 2017 19:49
== END 2017-05-18 17:00 | disposition home or self-care (01) ==
LOC: WSo 13:35 → LDRP 13:35 → WSo 17:00
PROVIDERS: ATTEND Family Medicine
DX: O36.8120 Decreased fetal movements, second trimester, not applicable or unspecified (principal); Z3A.27 27 weeks gestation of pregnancy
CPT/HCPCS: 76819; 99213

== ENCOUNTER → 2017-07-06 | Outpatient (CLI) | payer MEDICAID ==
--- NOTE | 2017-07-06 16:53 | Diagnostic Imaging Report ---
INDICATION: Increased fundal height and breech. TECHNIQUE: Multiple real-time grayscale images were obtained over the gravid uterus. COMPARISON: 04/19/2017. FINDINGS: There is a single live fetus in a cephalic presentation. The placenta is posterior. Amniotic fluid volume is normal. Cardiac motion was detected. No gross abnormalities are seen. Biometrical measurements are as follows: Biparietal 9.1 cm, age 36 weeks 6 days. Head circumference 31.9 cm, age 36 weeks 0 days. Abdominal circumference 32.1 cm, age 36 weeks 1 days. Femur length 7.1 cm, age 36 weeks 4 days. Sonographic estimate age: 36 weeks 3 days. Sonographic estimated date of delivery: 07/31/17. Estimated Weight: 2878 gm (+/- 420 gm). LMP percentile: 94%. heart rate: n/a beats per minute. number: 1 of 1. IMPRESSION: Single live IUP measuring approximately 36-37 weeks gestational age, approximately one week larger when compared with prior ultrasounds, which may be within normal standard statistical variation. No complicating features are detected. Dictated by: Dictated on workstation # [id number]
== END ==
LOC: RAD 12:57
PROVIDERS: ATTEND Family Medicine
DX: Z34.93 Encounter for supervision of normal pregnancy, unspecified, third trimester (principal); Z3A.36 36 weeks gestation of pregnancy
CPT/HCPCS: 76816

== ENCOUNTER 2017-08-10 16:00 | Outpatient (CLI) | payer MEDICAID ==
[~2017-08-10] VITALS: Ht 175.3 cm; Wt 112.9 kg
[~2017-08-10 16:00] MED LIST changes: -METF1000 PO; +METF10002 PO
--- NOTE | 2017-08-11 20:44 | Physician Query-Final Dx ---
FREDI FINK 08/11/174: Clinic Account Progress/Dx Physician Query: Please give diagnosis Date of Service August 10, 2017 at 16:00 BENIGNO JETER DO 08/11/177: Clinic Account Progress/Dx DIAGNOSIS: Diagnosis Threatened rupture of membranes FREDI FINK August 11, 2017 20:44 BENIGNO JETER DO August 11, 2017 21:17
== END 2017-08-10 17:46 | disposition home or self-care (01) ==
LOC: LDRP 16:00 → WSo 16:00
PROVIDERS: ATTEND Family Medicine
DX: O47.1 False labor at or after 37 completed weeks of gestation (principal); Z3A.39 39 weeks gestation of pregnancy
CPT/HCPCS: 99214

== ENCOUNTER 2017-08-18 07:00 | Inpatient (IN) | payer MEDICAID ==
[2017-08-18] VITALS (7 sets, daily range): BP systolic 122–133; BP diastolic 75–94
[~2017-08-18] VITALS: Ht 175.3 cm; Wt 112.0 kg
--- OUTSIDE RECORDS SUMMARY | 2017-08-18 19:28 | XMS REPORT | Continuity of Care Document ---
Author Author [facility] Address Unknown Phone Unavailable Allergies Active Description Code Type Severity Reaction Onset Reported/Identified Relationship to Patient Clinical Status Yes NATURAL LATEX OA 02/08/2010 Yes NATURAL LATEX OA N/A N/A 02/08/2010 Yes Glucophage 1,000 mg tablet Drug Allergy N/A N/A 09/18/2013 Yes latex [id number] Drug Allergy Unknown N/A 05/20/2014 Yes acetaminophen [id number] Drug Allergy Unknown CONFUSION 05/21/2014 Yes butalbital [id number] Drug Allergy Unknown CONFUSION 05/21/2014 Yes caffeine [id number] Drug Allergy Unknown CONFUSION 05/21/2014 Yes strawberry [id number] Drug Allergy Severe N/A 11/13/2016 Yes cyclobenzaprine [id number] Drug Allergy Unknown N/A 11/27/2016 Medications There [...] FAYE CHAIDEZ APRN 786.2 Cough 11/21/2007 PEARL SUPPLEMENTAL NURSE, MARTI R 463 TONSILLITIS 11/21/2007 DAE SUPPLEMENTAL NURSE, MARTI R 477.9 Rhinitis Allergic 11/21/2007 DAE PANTOJAN, MARTI R 786.2 Cough 11/21/2007 KYALYNN SUPPLEMENTAL NURSE, FAYE T 463 TONSILLITIS 11/21/2007 KAYLYNN SUPPLEMENTAL NURSE, FAYE T 477.9 Rhinitis Allergic 11/21/2007 KAYLYNN SUPPLEMENTAL NURSE, FAYE T 786.2 Cough 11/21/2007 DAE PANTOJAN, MARTI R 463 TONSILLITIS 11/21/2007 PEARL SUPPLEMENTAL NURSE, MARTI R 477.9 Rhinitis Allergic 11/21/2007 DAE SUPPLEMENTAL NURSE, MARTI R 786.2 Cough 11/21/2007 COSTA CASHERO SUPPLEMENTAL NURSE, MICHELE N 463 TONSILLITIS 11/21/2007 COSTA CASHERO SUPPLEMENTAL NURSE, MICHELE N 477.9 Rhinitis Allergic 11/21/2007 COSTA CASHERO SUPPLEMENTAL NURSE, MICHELE N 786.2 Cough 11/21/2007 HUONG MURPHY MD 463 TONSILLITIS 11/21/2007 HUONG MURPHY MD 477.9 Rhinitis Allergic 11/21/2007 HUONG MURPHY MD 786.2 Cough 11/21/2007 SELAM SUPPLEMENTAL NURSE, JOHNNY A 463 TONSILLITIS 11/21/2007 SELAM SUPPLEMENTAL NURSE, JOHNNY A 477.9 Rhinitis Allergic 11/21/2007 SELAM SUPPLEMENTAL NURSE, JOHNNY A 786.2 Cough 11/21/2007 CUMMINGS DO, [...] CHAIDEZ APRN 493.90 Asthma, Unspecified, Unspecified 12/19/2009 MARIT PEARL APRN R 493.90 Asthma, Unspecified, Unspecified [...] APRN, MICHELE N V74.5 Std Screen 12/26/2009 HUNOG MURPHY MD V01.79 Contact With Or Exposure [...] Behavior 02/08/2010 DINESH PEARL APRNIA R V72.31 Staker Surveying Exam, Routine 02/08/2010 V69.2 High-risk Sexual Behavior 02/08/2010 V72.31 Staker Surveying Exam, Routine 02/08/2010 V69.2 High-risk Sexual Behavior 02/08/2010 V72.31 Staker Surveying Exam, Routine 02/08/2010 CUMMINGS DO, ELISEO K V69.2 High-risk Sexual Behavior 02/08/2010 CUMMINGS DO, ELISEO K V72.31 Staker Surveying Exam, Routine 02/08/2010 FAYE CHAIDEZ APRN V69.2 High-risk Sexual Behavior 02/08/2010 FAYE CHAIDEZ APRN V72.31 Staker Surveying Exam, Routine 02/08/2010 MARTI PEARL APRN R V69.2 High-risk Sexual Behavior 02/08/2010 MARTI PEARL APRN R V72.31 Staker Surveying Exam, Routine 02/08/2010 FAYE CHAIDEZ APRN V69.2 High-risk Sexual Behavior 02/08/2010 FAYE CHAIDEZ APRN V72.31 Staker Surveying Exam, Routine 02/08/2010 DINESH PEARL APRNIA R V69.2 High-risk Sexual Behavior 02/08/2010 DINESH PEARL APRNIA R V72.31 Staker Surveying Exam, Routine 02/08/2010 MICHELE FREDERICK APRN N V69.2 High-risk Sexual Behavior 02/08/2010 MICHELE FREDERICK APRN N V72.31 Staker Surveying Exam, Routine 02/08/2010 HUONG MURPHY MD V69.2 High-risk Sexual Behavior 02/08/2010 HUONG MURPHY MD V72.31 Staker Surveying Exam, Routine 02/08/2010 ENMANUEL DOSS APRNIDI A V69.2 High-risk Sexual Behavior 02/08/2010 SELAM WINSTON JOHNNY Twila V72.31 Staker Surveying Exam, Routine 02/08/2010 CUMMINGS DO ELISEO K V69.2 High-risk Sexual Behavior 02/08/2010 CUMMINGS DO ELISEO K V72.31 Staker Surveying Exam, Routine 02/08/2010 CUMMINGS DO ELISEO K V69.2 High-risk Sexual Behavior 02/08/2010 CUMMINGS DO, ELISEO K V72.31 Staker Surveying Exam, Routine 02/08/2010 CB OROSCO APRN V69.2 High-risk Sexual Behavior 02/08/2010 CB OROSCO APRN V72.31 Staker Surveying Exam, Routine 02/08/2010 CUMMINGS DO, ELISEO K V69.2 High-risk Sexual Behavior 02/08/2010 CUMMINGS DO, ELISEO K V72.31 Staker Surveying Exam, Routine 03/31/2010 MARTI PEARL APRN R [...] Depressive Disorder Not Elsewhere Classified 06/30/2010 JOHNNY ODSS APRN 311 Depressive Disorder Not Elsewhere Classified [...] ORAL CONTRACEPTION 12/03/2011 MARTI PEARL APRN V72.31 SNAP SHEARER EXAM, ROUTINE 12/03/2011 MARTI PEARL APRN V74.5 STD SCREEN 12/03/2011 V25.01 CONTRACEPTION - ORAL CONTRACEPTION 12/03/2011 V72.31 SNAP SHEARER EXAM, ROUTINE 12/03/2011 V74.5 STD SCREEN 12/03/2011 V25.01 CONTRACEPTION - ORAL CONTRACEPTION 12/03/2011 V72.31 SNAP SHEARER EXAM, ROUTINE 12/03/2011 V74.5 STD SCREEN 12/03/2011 ELISEO CUMMINGS DO V25.01 CONTRACEPTION - ORAL CONTRACEPTION 12/03/2011 ELISEO CUMMINGS DO V72.31 SNAP SHEARER EXAM, ROUTINE 12/03/2011 ELISEO CUMMINGS DO V74.5 STD SCREEN 12/03/2011 FAYE CHAIDEZ APRN V25.01 CONTRACEPTION - ORAL CONTRACEPTION 12/03/2011 FAYE CHAIDEZ APRN V72.31 SNAP SHEARER EXAM, ROUTINE 12/03/2011 FAYE CHAIDEZ APRN V74.5 STD SCREEN 12/03/2011 MARTI PEARL APRN R V25.01 CONTRACEPTION - ORAL CONTRACEPTION 12/03/2011 MARTI PEARL APRN R V72.31 SNAP SHEARER EXAM, ROUTINE 12/03/2011 MARTI PEARL APRN R V74.5 STD SCREEN 12/03/2011 FAYE CHAIDEZ APRN V25.01 CONTRACEPTION - ORAL CONTRACEPTION 12/03/2011 FAYE CHAIDEZ APRN V72.31 SNAP SHEARER EXAM, ROUTINE 12/03/2011 FAYE CHAIDEZ APRN V74.5 STD SCREEN 12/03/2011 MARTI PEARL APRN R V25.01 CONTRACEPTION - ORAL CONTRACEPTION 12/03/2011 MARTI PEARL APRN R V72.31 SNAP SHEARER EXAM, ROUTINE 12/03/2011 MARTI PEARL APRN R V74.5 STD SCREEN 12/03/2011 MICHELE FREDERICK APRN N V25.01 CONTRACEPTION - ORAL CONTRACEPTION 12/03/2011 MICHELE FREDERICK APRN N V72.31 SNAP SHEARER EXAM, ROUTINE 12/03/2011 MICHELE FREDERICK APRN N V74.5 STD SCREEN 12/03/2011 HUONG MURPHY MD V25.01 CONTRACEPTION - ORAL CONTRACEPTION 12/03/2011 HUONG MURPHY MD V72.31 SNAP SHEARER EXAM, ROUTINE 12/03/2011 HUONG MURPHY MD V74.5 STD SCREEN 12/03/2011 JOHNNY DOSS APRN A V25.01 CONTRACEPTION - ORAL CONTRACEPTION 12/03/2011 JOHNNY DOSS APRN A V72.31 SNAP SHEARER EXAM, ROUTINE 12/03/2011 JOHNNY DOSS APRN A V74.5 STD SCREEN 12/03/2011 AIME CUMMINGS DOA K V25.01 CONTRACEPTION - ORAL CONTRACEPTION 12/03/2011 AIME CUMMINGS DOA K V72.31 SNAP SHEARER EXAM, ROUTINE 12/03/2011 CUMMINGS DO ELISEO K V74.5 STD SCREEN 12/03/2011 CUMMINGS DO ELISEO K V25.01 CONTRACEPTION - ORAL CONTRACEPTION 12/03/2011 CUMMINGS DO ELISEO K V72.31 SNAP SHEARER EXAM, ROUTINE 12/03/2011 ELISEO CUMMINGS DO V74.5 STD SCREEN 12/03/2011 CB OROSCO APRN V25.01 CONTRACEPTION - ORAL CONTRACEPTION 12/03/2011 CB OROSCO APRN V72.31 SNAP SHEARER EXAM, ROUTINE 12/03/2011 CB OROSCO APRN V74.5 STD SCREEN 12/03/2011 ELISEO CUMMINGS DO V25.01 CONTRACEPTION - ORAL CONTRACEPTION 12/03/2011 ELISEO CUMMINGS DO V72.31 SNAP SHEARER EXAM, ROUTINE 12/03/2011 ELISEO CUMMINGS DO V74.5 [...] GALLBLADDER WITHOUT CHOLECYSTITIS WITHOUT OBSTRUCTION 09/19/2012 PEARL SUPPLEMENTAL NURSE, MARTI R 634.92 COMPLETE (SAB) 09/19/2012 FAYE CHAIDEZ APRN 574.20 CALCULUS OF GALLBLADDER WITHOUT CHOLECYSTITIS WITHOUT OBSTRUCTION 09/19/2012 FAYE CHAIDEZ APRN 634.92 COMPLETE (SAB) 09/19/2012 MARTI PEARL APRN R 574.20 CALCULUS OF GALLBLADDER WITHOUT CHOLECYSTITIS WITHOUT OBSTRUCTION 09/19/2012 MARTI PEARL APRN R 634.92 COMPLETE (SAB) 09/19/2012 [facility] N 574.20 CALCULUS OF GALLBLADDER WITHOUT CHOLECYSTITIS WITHOUT OBSTRUCTION 09/19/2012 COSTA BLUFFTONERO CATRACHITO, MICHELE N 634.92 COMPLETE (SAB) 09/19/2012 [...] FAYE CHAIDEZ APRN 575.11 CHOLECYSTITIS, CHRONIC 10/10/2012 MRATI PEARL APRN R 575.11 CHOLECYSTITIS, CHRONIC 10/10/2012 [...] ELISEO K 793.11 SOLITARY PULMONARY NODULE 05/01/2013 AIME CUMMINGS DOA K 793.11 SOLITARY PULMONARY NODULE 05/01/2013 CB OROSCO APRN 793.11 SOLITARY PULMONARY NODULE 05/01/2013 CUMMINGS DO, ELISEO K 793.11 SOLITARY PULMONARY NODULE 05/26/2013 DAE SUPPLEMENTAL NURSE, MARTI R 034.0 STREP THROAT 05/26/2013 VIKY [...] WINSTON JOHNNY A 463 ACUTE TONSILLITIS 09/05/2013 ENMANUEL [...] 05/21/2014 Ot E937.0 04/01/2015 MACIE DALE, THEODORE Vlaenzuela Ot M25.511 PAIN IN RIGHT SHOULDER 04/01/2015 MACIE DALE, THEODORE Valenzuela Ot Z98.89 OTHER SPECIFIED POSTPROCEDURAL STATES 08/30/2015 NEHEMIAH HAMEED SUPPLEMENTAL NURSE Ot E28.2 POLYCYSTIC OVARIAN SYNDROME 10/30/2015 CHARLY BANGURA SUPPLEMENTAL NURSE Ot E28.2 POLYCYSTIC OVARIAN SYNDROME 11/01/2015 CHARLY BANGURA SUPPLEMENTAL NURSE Ot E28.2 POLYCYSTIC OVARIAN SYNDROME 08/06/2016 NEHEMIAH HAMEED SUPPLEMENTAL NURSE Ot E28.2 POLYCYSTIC OVARIAN SYNDROME 08/06/2016 CHARLY BANGURA SUPPLEMENTAL NURSE Ot E28.2 POLYCYSTIC OVARIAN SYNDROME 08/07/2016 NEHEMIAH HAMEED SUPPLEMENTAL NURSE Ot E28.2 POLYCYSTIC OVARIAN SYNDROME 11/13/2016 NEHEMIAH HAMEED SUPPLEMENTAL NURSE Ot E28.2 POLYCYSTIC OVARIAN SYNDROME 11/13/2016 CHARLY BANGURA SUPPLEMENTAL NURSE Ot E28.2 POLYCYSTIC OVARIAN SYNDROME 11/14/2016 RACQUEL [...] OTHER DISEASES OF UR 11/14/2016 NEHEMIAH HAMEED SUPPLEMENTAL NURSE Ot E28.2 POLYCYSTIC OVARIAN SYNDROME 11/14/2016 CHARLY BANGURA SUPPLEMENTAL NURSE Ot E28.2 POLYCYSTIC OVARIAN SYNDROME 11/16/2016 RACQUEL [...] OTHER DISEASES OF UR 12/22/2016 NEHEMIAH HAMEED SUPPLEMENTAL NURSE Ot E28.2 POLYCYSTIC OVARIAN SYNDROME 12/22/2016 CHARLY BANGURA SUPPLEMENTAL NURSE Ot E28.2 POLYCYSTIC OVARIAN SYNDROME 12/28/2016 ROJAS TYLER MD Ot N83.201 UNSPECIFIED OVARIAN CYST, RIGHT SIDE 12/28/2016 ROJAS TYLER MD Ot O26.891 OTH RELATED CONDITIONS, FIRST 12/28/2016 ROJAS TYLER MD Ot Z3A.01 LESS THAN 8 WEEKS GESTATION OF 12/28/2016 NEHEMIAH HAMEED SUPPLEMENTAL NURSE Ot E28.2 POLYCYSTIC OVARIAN SYNDROME 12/28/2016 CHARLY BANGURA SUPPLEMENTAL NURSE Ot E28.2 POLYCYSTIC OVARIAN SYNDROME 12/28/2016 ROJAS TYLER MD Ot N83.201 UNSPECIFIED OVARIAN CYST, RIGHT SIDE 12/28/2016 ROJAS TYLER MD Ot O26.891 OTH RELATED CONDITIONS, FIRST 12/28/2016 ROJAS TYLER MD Ot Z3A.01 LESS THAN 8 WEEKS GESTATION OF 01/29/2017 NEHEMIAH HAMEED SUPPLEMENTAL NURSE Ot E28.2 POLYCYSTIC OVARIAN SYNDROME 01/29/2017 CHARLY BANGURA SUPPLEMENTAL NURSE Ot E28.2 POLYCYSTIC OVARIAN SYNDROME 01/29/2017 ROJAS [...] PREGNAN 01/29/2017 JER ARGUELLO DO Ot O99.89 OTH DISEASES AND CONDITIONS COMPL PREG/C 01/29/2017 SAUNDRA SHEPHERD JER Santana Ot Z3A.12 12 WEEKS GESTATION OF 01/29/2017 JER ARGUELLO DO Ot Z87.891 PERSONAL HISTORY OF NICOTINE DEPENDENCE 01/29/2017 ZARINEHEMIAH SUPPLEMENTAL NURSE Ot E28.2 POLYCYSTIC OVARIAN SYNDROME 01/29/2017 GIULIA BANGURAELE Maribell SUPPLEMENTAL NURSE Ot E28.2 POLYCYSTIC OVARIAN SYNDROME 01/29/2017 JAYSON DALE, ROJAS Reyna Ot N83.201 UNSPECIFIED OVARIAN CYST, RIGHT SIDE 01/29/2017 JAYSON DALE, ROJAS Reyna Ot O26.891 OTH RELATED CONDITIONS, FIRST 01/29/2017 JAYSON DALE, ROJAS Reyna Ot Z3A.01 LESS THAN 8 WEEKS GESTATION OF 03/27/2017 THEODORE QUIJANO MD Ot G43.909 MIGRAINE, UNSP, NOT INTRACTABLE, WITHOUT 03/27/2017 THEODORE QUIJANO MD Ot O99.352 DISEASES OF THE NERVOUS SYS COMP PREGNAN 03/27/2017 THEODORE QUIJANO MD Ot O99.89 OTH DISEASES AND CONDITIONS COMPL PREG/C 03/27/2017 THEODORE QUIJANO MD Ot R10.30 LOWER ABDOMINAL PAIN, UNSPECIFIED 03/27/2017 THEODORE QUIJANO MD Ot Z3A.19 19 WEEKS GESTATION OF 03/27/2017 THEODORE QUIJANO MD Ot Z87.448 PERSONAL HISTORY OF OTHER DISEASES OF UR 03/27/2017 THEODORE QUIJANO MD Ot Z87.891 PERSONAL HISTORY OF NICOTINE DEPENDENCE 03/27/2017 BENIGNO JETER DO Ot O09.292 SUPRVSN OF PREG W POOR REPRODCTV OR OBST 03/27/2017 BENIGNO JETER DO Ot O26.22 PREG CARE FOR PATIENT W RECUR PREG LOSS, 03/27/2017 BENIGNO JETER DO Ot O47.02 FALSE LABOR BEFORE 37 COMPLETED WEEKS OF 03/27/2017 BENIGNO JETER DO Ot O99.89 OTH DISEASES AND CONDITIONS COMPL PREG/C 03/27/2017 BENIGNO JETER DO Ot R30.0 DYSURIA 03/27/2017 LINDABENIGNO Ng DO Ot Z3A.19 19 WEEKS GESTATION OF 04/01/2017 ROJAS TYLER MD Ot Z34.92 ENCNTR FOR SUPRVSN OF NORMAL PREG, UNSP, 04/01/2017 ROJAS TYLER MD Ot Z3A.19 19 WEEKS GESTATION OF 04/03/2017 LINDABENIGNO Ng DO Ot O09.292 SUPRVSN OF PREG W POOR REPRODCTV OR OBST 04/03/2017 STEFFANY DOBENIGNO Ot O26.22 PREG CARE FOR PATIENT W RECUR PREG LOSS, 04/03/2017 BENIGNO JETER DO Ot O47.02 FALSE LABOR BEFORE 37 COMPLETED WEEKS OF 04/03/2017 LINDABENIGNO Ng DO Ot O99.89 OTH DISEASES AND CONDITIONS COMPL PREG/C 04/03/2017 BENIGNO JETER DO Ot R30.0 DYSURIA 04/03/2017 STEFFANY DOBENIGNO Ot Z3A.19 19 WEEKS GESTATION OF 04/06/2017 CUMMINGS DO, ELISEO K Ot K52.9 NONINFECTIVE GASTROENTERITIS AND COLITIS 04/06/2017 CUMMINGS DO, ELISEO K Ot O99.612 DISEASES OF THE DGSTV SYS COMP 04/06/2017 CUMMINGS DO, ELISEO K Ot Z3A.21 21 WEEKS GESTATION OF 04/09/2017 CUMMINGS DO, ELISEO K Ot K52.9 NONINFECTIVE GASTROENTERITIS AND COLITIS 04/09/2017 CUMMINGS DO, ELISEO K Ot O99.612 DISEASES OF THE DGSTV SYS COMP 04/09/2017 CUMMINGS DO, ELISEO K Ot Z3A.21 21 WEEKS GESTATION OF 05/06/2017 ROJAS TYLER MD Ot Z36.89 ENCOUNTER FOR OTHER SPECIFIED 05/06/2017 ROJAS TYLER MD Ot Z3A.24 24 WEEKS GESTATION OF 05/18/2017 BARNIDGE DOBENIGNO Ot O36.8120 DECREASED MOVEMENTS, SECOND TRIMES 05/18/2017 STEFFANY DOBENIGNO Ot Z3A.27 27 WEEKS GESTATION OF 05/20/2017 LINDADGE DOBENIGNO Ot O36.8120 DECREASED MOVEMENTS, SECOND TRIMES 05/20/2017 BENIGNO JETER DO Ot Z3A.27 27 WEEKS GESTATION OF 07/07/2017 ROJAS TYLER MD Ot Z34.93 ENCNTR FOR SUPRVSN OF NORMAL PREG, UNSP, 07/07/2017 ROJAS TYLER MD Ot Z3A.36 36 WEEKS GESTATION OF 07/12/2017 ROJAS TYLER MD Ot Z34.93 ENCNTR FOR SUPRVSN OF NORMAL PREG, UNSP, 07/12/2017 ROJAS TYLER MD Ot Z3A.36 36 WEEKS GESTATION OF Procedures Code Description [place] [address] STREP A (IN-HOUSE) 05/03/2012 62855 UA LONG DIP 05/03/2012 67666 CULTURE URINE 05/03/2012 88404 UA W/ CULTURE IF INDICATED 08/27/2012 69581 CULTURE URINE 08/27/2012 15479 URINE TEST (IN- HOUSE) 09/19/2012 YELENA BAUER 09/21/2012 57001 STREP A (IN-HOUSE) 04/05/2013 43155 XRAY CHEST 2 VIEW 04/26/[address] CHEST W/DYE 04/26/2013 58139 OXIMETRY 04/26/2013 90925 STREP A (IN-HOUSE) 05/26/2013 91037 INFLUENZA A & B (IN-HOUSE) 05/26/2013 31447 STREP A (IN-HOUSE) 09/05/2013 55547 CLOSTRIDIUM (C-DIFF) 09/08/2013 68916 ROUTINE VENIPUNCTURE 11/08/2013 07033 TEST, URINE (IN- HOUSE) 11/08/2013 58092 CBC 11/08/2013 9978901 GFR CALC (RESULT ONLY) 11/08/2013 63783 CMP 11/08/2013 72650 LIPID PANEL 11/08/2013 75329 TSH 11/08/2013 92438 INSULIN LEVEL 11/09/2013 29329 TEST, URINE (IN- HOUSE) 11/15/2013 Results Test Result Range TSH+Free T4 - 07/30/16 10:14 TSH 1.340 uIU/mL 0.450-4.500 T4,Free(Direct) 1.21 ng/dL 0.82-1.77 Comp. Metabolic Panel (14) - 07/30/16 10:14 Glucose, Serum 92 mg/dL 65-99 BUN 6 mg/dL 6-20 Creatinine, Serum 0.65 mg/dL 0.57-1.00 eGFR If NonAfricn Am 124 mL/min/1.73 >59 eGFR If Africn Am 143 mL/min/1.73 >59 BUN/Creatinine Ratio 9 9-23 Sodium, Serum 141 mmol/L 134-144 Potassium, Serum 3.9 mmol/L 3.5-5.2 Chloride, Serum 101 mmol/L 96-106 Carbon Dioxide, Total 21 mmol/L 18-29 Calcium, Serum 9.5 mg/dL 8.7-10.2 Protein, Total, Serum 7.4 g/dL 6.0-8.5 Albumin, Serum 4.8 g/dL 3.5-5.5 Globulin, Total 2.6 g/dL 1.5-4.5 A/G Ratio 1.8 1.2-2.2 Bilirubin, Total 0.4 mg/dL 0.0-1.2 Alkaline Phosphatase, S 88 IU/L 39-117 AST (SGOT) 22 IU/L 0-40 ALT (SGPT) 53 IU/L 0-32 Lipid Panel - 07/30/16 10:14 Cholesterol, Total 180 mg/dL 100-199 Triglycerides 200 mg/dL 0-149 HDL Cholesterol 37 mg/dL >39 VLDL Cholesterol Mikael 40 mg/dL 5-40 LDL Cholesterol Calc 103 mg/dL 0-99 Hemoglobin A1c - 07/30/16 10:14 Hemoglobin A1c 5.3 % 4.8-5.6 Luteinizing Hormone(LH), S - 07/30/16 10:14 LH 12.7 mIU/mL FSH, Serum - 07/30/16 10:14 FSH 5.3 mIU/mL Insulin - 07/30/16 10:14 Insulin 20.0 uIU/mL 2.6-24.9 RUBELLA ANTIBODIES, IgG - 01/06/17 15:21 Rubella Antibodies, IgG 1.00 index Immune >0.99 CULTURE, GENITAL - 01/06/17 15:21 Genital Culture, Routine Final report NRG Result 1 NRG Result 2 Yeast isolated. NRG Result 3 NRG CBC With Differential/Platelet - 01/06/17 15:21 WBC 8.3 x10E3/uL 3.4-10.8 RBC 4.12 x10E6/uL 3.77-5.28 Hemoglobin 13.2 g/dL 11.1-15.9 Hematocrit 38.5 % 34.0-46.6 MCV 93 fL 79-97 MCH 32.0 pg 26.6-33.0 MCHC 34.3 g/dL 31.5-35.7 RDW 14.0 % 12.3-15.4 Platelets 302 x10E3/uL 150-379 Neutrophils 59 % Not Estab. Lymphs 34 % Not Estab. Monocytes 6 % Not Estab. Eos 1 % Not Estab. Basos 0 % Not Estab. Neutrophils (Absolute) 4.9 x10E3/uL 1.4-7.0 Lymphs (Absolute) 2.8 x10E3/uL 0.7-3.1 Monocytes(Absolute) 0.5 x10E3/uL 0.1-0.9 Eos (Absolute) 0.1 x10E3/uL 0.0-0.4 Baso (Absolute) 0.0 x10E3/uL 0.0-0.2 Immature Granulocytes 0 % Not Estab. Immature Grans (Abs) 0.0 x10E3/uL 0.0-0.1 ABO Grouping and Rho(D) Typing - 01/06/17 15: ABO Grouping A Rh Factor Positive Hemoglobin A1c - 01/06/17 15: Hemoglobin A1c 5.0 % 4.8-5.6 TSH - 01/06/17 15:21 TSH 1.020 uIU/mL 0.450-4.500 Rubella Antibodies, IgG - 01/06/17 15: Rubella Antibodies, IgG 1.00 index Immune >0.99 Antibody Screen - 01/06/17 15:21 Antibody Screen Negative Negative Urine Culture, Routine - 01/06/17 15:21 Urine Culture, Routine Note Genital Culture, Routine - 01/06/17 15: Genital Culture, Routine Note Complete urinalysis with reflex to culture - [...] group - 01/29/17 18:23 ABO+Rh group AP NR Transfusion band number [id number] NRG Serum or plasma choriogonadotropin measurement (units/volume) - 01/29/17 18:23 Serum or plasma choriogonadotropin measurement (units/volume) 59324 m[iU]/mL <5 QNATAL - 03/17/17 13:56 NUMBER OF FETUSES? 1 NRG ADVANCED MATERNAL AGE? NO NRG ABNORMAL RACHEL? NO NRG ABNORMAL US? NO NRG PERSONAL/FAM HISTORY? NO NRG INTERPRETATION SEE NOTE NRG TRISOMY 21 (T21) Negative NRG TRISOMY 18 (T18) Negative NRG TRISOMY 13 (T13) Negative NRG Y CHROMOSOME Detected NRG Y CHR. INTERPRETATION SEE NOTE NRG SEX CHROMOSOME No aneuploidy NRG SEX CHROMOSOME INTERP SEE NOTE NRG MICRODELETION Not detected NRG MICRODELETION INTERP SEE NOTE NRG GESTATIONAL AGE(IN WEEKS) 18 NRG GESTATIONAL AGE (IN DAYS) 3 NRG FRACTION 6.72% NRG LABORATORY COMMENTS SEE NOTE NRG LIMITATIONS SEE NOTE NRG SPECIFICATIONS SEE NOTE NRG METHODOLOGY SEE NOTE NRG Complete urinalysis with reflex to culture - 03/27/17 06:46 Urine color determination YELLOW NRG Urine clarity determination CLEAR NRG Urine pH measurement by test strip 6 5-9 Specific gravity of urine by test strip 1.025 1.016- 1.022 Urine protein assay by test strip, semi-quantitative NEGATIVE NEGATIVE Urine glucose detection by automated test [...] count by microscopy (number/high power field ) [HPF] NRG Bacteria detection in urine sediment by light microscopy MODERATE NRG Squamous epithelial cells detection in urine sediment by light microscopy 10-25 NRG Crystals detection in urine sediment by light microscopy NONE NRG Casts detection in urine sediment by light microscopy NONE NRG Mucus detection in urine sediment by light microscopy NEGATIVE NRG Complete urinalysis with reflex to culture NO NRG Urine drug screening test - 03/27/17 06:46 Urine phencyclidine detection by screening method NEGATIVE NEGATIVE Urine benzodiazepines detection by screening method NEGATIVE NEGATIVE Urine cocaine detection NEGATIVE NEGATIVE Urine amphetamines detection by screening method NEGATIVE NEGATIVE Urine methamphetamine detection by screening method NEGATIVE NEGATIVE Urine cannabinoids detection by screening method NEGATIVE NEGATIVE Urine opiates detection by screening method NEGATIVE NEGATIVE Urine barbiturates detection NEGATIVE NEGATIVE Screening urine tricyclic antidepressants detection NEGATIVE NEGATIVE Urine methadone detection by screening method NEGATIVE NEGATIVE Urine oxycodone detection NEGATIVE NEGATIVE Urine propoxyphene detection NEGATIVE NEGATIVE GLUCOSE ALBERTA 1 HOUR - 05/06/17 15:08 GLUCOSE, POSTPRANDIAL/ 1 HOUR 122 mg/dL See Note: CULTURE, GROUP B STREP (VAGINAL) - 07/27/17 18:33 STREPTOCOCCUS, GROUP B CULTURE SEE NOTE NRG Encounters ACCT No. Visit Date/Time Discharge Status Pt. Type Provider Facility Loc./Unit Complaint [id number] 04/03/2014 13:43:00 04/03/2014 23:59:59 CLS Outpatient ELISEO CUMMINGS DO [id number] 03/15/2014 15:13:00 03/15/2014 23:59:59 CLS Outpatient CB OROSCO APRN [id number] 01/04/2014 14:31:00 01/04/2014 23:59:59 CLS Outpatient ELISEO CUMMINGS DO [id number] 12/11/2013 10:19:00 12/11/2013 23:59:59 CLS Outpatient ELISEO CUMMINGS DO [id number] 11/15/2013 15:11:00 11/15/2013 23:59:59 CLS Outpatient JOHNNY DOSS APRN [id number] 09/08/2013 14:40:00 09/08/2013 23:59:59 CLS Outpatient HUONG MURPHY MD [id number] 09/05/2013 10:53:00 09/05/2013 23:59:59 CLS Outpatient MICHELE FREDERICK APRN [id number] 05/26/2013 12:38:00 05/26/2013 23:59:59 CLS Outpatient MARTI PEARL APRN [id number] 04/26/2013 17:34:00 04/26/2013 23:59:59 CLS Outpatient FAYE CHAIDEZ APRN [id number] 04/05/2013 15:32:00 04/05/2013 23:59:59 CLS Outpatient MARTI PEARL APRN [id number] 02/04/2013 09:36:00 02/04/2013 23:59:59 CLS Outpatient FAYE CHAIDEZ APRN [id number] 12/20/2012 14:53:00 12/20/2012 23:59:59 CLS Outpatient ELISEO CUMMINGS DO [id number] 05/03/2012 13:12:00 05/03/2012 23:59:59 CLS Outpatient DAE WINSTONMARTI [id number] 09/19/2012 10:15:00 Document Registration [id number] 08/27/2012 13:06:00 Document Registration [id number] 08/03/2017 15:40:00 08/03/2017 23:59:59 CLS Outpatient ROJAS TYLER [facility] [id number] 07/27/2017 16:20:00 Document Registration [id number] 05/06/2017 14:20:00 Document Registration [id number] 03/17/2017 13:40:00 Document Registration [id number] 01/06/2017 14:20:00 Document Registration [id number] 01/08/2017 15:09:00 Document Registration [id number] 01/09/2017 11:07:00 Document Registration [id number] 07/31/2016 11:08:00 Document Registration [id number] 08/10/2017 16:00:00 08/10/2017 17:46:00 DIS Outpatient BENIGNO JETER DO Via [facility] [place] [id number] 07/06/2017 12:57:00 07/06/2017 23:59:59 CLS Outpatient ROJAS TYLER MD Via [facility] RAD Z34.93 THIRD TRIMESTER PREGANCY [id number] 05/18/2017 13:35:00 05/18/2017 17:00:00 DIS Outpatient BENIGNO JETER DO Via [facility] WS DECREASED MOVEMENTS [id number] 04/19/2017 15:38:00 04/19/2017 23:59:59 CLS Outpatient ROJAS TYLER MD Via [facility] RAD ABN SONO [id number] 04/05/2017 22:09:00 04/06/2017 01:25:00 DIS Outpatient ELISEO CUMMINGS DO Via [facility] VOMITING,DIARRHEA, DECREASED MOVEMENT [id number] 03/27/2017 07:30:00 03/27/2017 09:47:00 DIS Outpatient BENIGNO JETER DO Via [facility] WSo LOWER ABD CRAMPS [id number] 03/27/2017 06:04:00 03/27/2017 07:42:00 DIS Emergency THEODORE QUIJANO MD Via [facility] ER 19 WEEKS 5 DAYS PREG ,LOWER ABD CRAMPING [id number] 03/16/2017 13:44:00 03/16/2017 23:59:59 CLS Outpatient ROJAS TYLER MD Via [facility] RAD SURVEY [id number] 01/29/2017 17:51:00 01/29/2017 19:55:00 DIS Emergency JER ARGUELLO DO Via [facility] ER ABD PAIN [id number] 12/22/2016 12:32:00 12/22/2016 23:59:59 CLS Outpatient ROJAS TYLER MD Via [facility] RAD LLQ PAIN, [id number] 11/13/2016 22:18:00 11/14/2016 00:02:00 DIS Emergency LITTLE DALE, RACQUEL Vargas Via [facility] ER RASH [id number] 10/29/2015 11:08:00 10/29/2015 23:59:59 CLS Outpatient CHARLY BANGURA SUPPLEMENTAL NURSE Via [facility] RAD E28.2 [id number] 05/17/2015 13:40:00 05/17/2015 23:59:59 CLS Outpatient NEHEMIAH HAMEED SUPPLEMENTAL NURSE Via [facility] RAD PCOS [id number] 04/01/2015 08:51:00 04/01/2015 09:38:00 DIS Emergency THEODORE QUIJANO MD Via [facility] ER RIGHT UPPER ARM PAIN/ SWELLING [id number] 01/11/2014 11:15:00 01/11/2014 13:37:00 DIS Emergency [id number] 05/09/2013 15:49:00 05/09/2013 23:59:59 CLS Outpatient [id number] 03/20/2013 16:04:00 03/20/2013 18:16:00 DIS Emergency [id number] 11/08/2012 19:55:00 11/08/2012 20:52:00 DIS Emergency [id number] 10/27/2012 11:11:00 10/27/2012 16:40:00 DIS Outpatient [id number] 10/21/2012 12:44:00 10/21/2012 23:59:59 CLS Outpatient [id number] 09/15/2012 21:24:00 09/16/2012 00:36:00 DIS Emergency [id number] 05/20/2014 18:40:00 Document Registration
[2017-08-18] MEDS ORDERED: AMPICILLIN INJECTION 2,000 MG in NS (IVPB) 50 ML IV SCH (19:30)
[2017-08-18] MEDS ORDERED: TERBUTALINE INJ 1 MG/ML (BRETHINE) AMP SC PRN (19:30)
[2017-08-18] MEDS ORDERED: LACTATED RINGERS 1,000 ML IV NR (19:30)
[2017-08-18] MEDS ORDERED: MINERAL OIL CONCENTRATE 99.9% 15 ML UDC TOP PRN (19:30)
[2017-08-18] MEDS ORDERED: MISOPROSTOL 100 MCG (CYTOTEC) TAB PO ONE (19:30)
[2017-08-18] MEDS ORDERED: LACTATED RINGERS 1,000 ML IV ONE (19:32)
[2017-08-18] MEDS ORDERED: MISOPROSTOL 100 MCG (CYTOTEC) TAB ONE (19:32)
[2017-08-18 20:27] LABS: BASOPHILS % (AUTO) 0 % (0-10); EOSINOPHILS % (AUTO) 0 % (0-10); HEMATOCRIT 39 % (35-52); HEMOGLOBIN 13.4 G/DL (11.5-16.0); LYMPHOCYTES # (AUTO) 1.6 X 10^3 (1.0-4.0); LYMPHOCYTES % (AUTO) 18 % (12-44); MEAN CORPUSCULAR HEMOGLOBIN 34 PG (25-34); MEAN CORPUSCULAR HGB CONC 35 G/DL (32-36); MEAN CORPUSCULAR VOLUME 98 FL (80-99); MEAN PLATELET VOLUME 11.9 FL (7.4-10.4); MONOCYTES # (AUTO) 0.4 X 10^3 (0.0-1.0); MONOCYTES % (AUTO) 5 % (0-12); NEUTROPHILS # (AUTO) 6.6 X 10^3 (1.8-7.8); NEUTROPHILS % (AUTO) 76 % (42-75); PLATELET COUNT 240 10^3/uL (130-400); RED BLOOD COUNT 3.96 10^6/uL (4.35-5.85); RED CELL DISTRIBUTION WIDTH 14.1 % (10.0-14.5); WHITE BLOOD COUNT 8.6 10^3/uL (4.3-11.0)
[2017-08-18] MEDS ORDERED: ACYCLOVIR 400 MG TABLET (ZOVIRAX) PO SCH (21:00)
[2017-08-18] MEDS: D5 LR IV SOLUTION 1,000 ML IV SCH (21:33)
[2017-08-19] VITALS (50 sets, daily range): BP systolic 98–146; BP diastolic 51–111
[2017-08-19] MEDS: AMPICILLIN INJECTION 1,000 MG in NS (IVPB) 50 ML IV SCH ×3 (00:50→08:19)
[2017-08-19] MEDS: CATHETER FLUSH 10 ML SYR IV SCH ×2 (01:17→06:02)
[2017-08-19] MEDS ORDERED: ACETAMINOPHEN 500 MG TAB (TYLENOL) PO PRN (02:15)
[2017-08-19] MEDS: MISOPROSTOL 100 MCG (CYTOTEC) TAB PO SCH ×2 (03:08→04:31)
[2017-08-19] MEDS: BUTORPHANOL INJ 2 MG/ML (STADOL) VIAL IV PRN ×2 (03:12→06:01)
[2017-08-19] MEDS ORDERED: SUFENTA 0.6MCG/ML BUPIVA 0.125 100 ML ONE (05:43)
[2017-08-19] MEDS: D5 LR IV SOLUTION 1,000 ML IV SCH (06:40)
[2017-08-19] MEDS ORDERED: fentaNYL INJECTION 100 MCG/2 ML AMP ONE (06:45)
[2017-08-19] MEDS ORDERED: LACTATED RINGERS 1,000 ML IV ONE (07:14)
[2017-08-19] MEDS ORDERED: NALOXONE 0.4 MG/ML 1 ML (NARCAN) VIAL IV PRN ×2 (07:15)
[2017-08-19] MEDS ORDERED: diphenhydrAMINE 50 MG/ML INJ (BENADRYL) IV PRN (07:15)
[2017-08-19] MEDS ORDERED: EPIDURAL (SUFENTA 0.6MCG/ML BUPIVA 0.125%) 100 ML BAG EPI PRN (07:15)
[2017-08-19] MEDS ORDERED: METOCLOPRAMIDE INJ 10 MG/2 ML (REGLAN) IV PRN (07:15)
[2017-08-19] MEDS ORDERED: ONDANSETRON 4 MG/2 ML (SDV) Z0FRAN IV PRN (07:15)
[2017-08-19] MEDS ORDERED: LIDOCAINE/EPI 2% 1:200,00 (XYLOCAINE) 10 ML VIAL ONE (08:52)
[2017-08-19] MEDS ORDERED: OXYTOCIN/NORMAL SALINE 500 ML IV ONE ×2 (08:52→10:20)
[2017-08-19] MEDS: OXYTOCIN/NORMAL SALINE 500 ML IV SCH ×2 (09:50→10:25)
--- NOTE | 2017-08-19 10:26 | History & Physical-OB ---
OB - Chief Complaint & HPI Date/Time Date of Admission: Date of Admission: August 18, 2017 at 19:00 Time Seen by Provider: 08:50 Chief Complaint/History OB-Reason for Admission/Chief: Induction of Labor Hx : 5 Hx Para: 1 Expected Date of Delivery: August 15, 2017 Gestational Age in Weeks: 40 Gestational Age in Days: 4 Indication for induction: post dates History of Labs A+, Ab neg Rub Imm HIV/HepB/RPR NR GC/Chyl neg Allergies and Home Medications Allergies Coded Allergies: strawberry (Verified Allergy, Severe, 11/13/16) cyclobenzaprine (Verified Allergy, Unknown, 11/27/16) latex (Verified Allergy, Unknown, 05/20/14) acetaminophen (Verified Adverse Reaction, Unknown, CONFUSION, 05/21/14) butalbital (Verified Adverse Reaction, Unknown, CONFUSION, 05/21/14) caffeine (Verified Adverse Reaction, Unknown, CONFUSION, 05/21/14) Home Medications Fluticasone Propionate 9.9 Ml [place].susp, 9.9 ML NS PRN, (Reported) Multivitamin 1 Each Tab.chew, 2 EACH PO DAILY, (Reported) Patient Home Medication List Home Medication List Reviewed: Yes OB - History Hx of Present Care: Yes Ultrasounds: Normal mid trimester US Obstetrical Complications: Other (PCOS) Medical Complications: Psychiatric (PTSD) Information Induced Hypertension: No Maternal Gestational Diabetes: No Hemorrhage: No Obstetrical History Hx : 5 Hx Para: 1 Hx # Pregnancies: 1 Number of Living Children: 0 Hx Total # of Abortions (Spona: 3 Delivery History Hx Blood Disorders: No Patient Past Medical History PCOS on Metformin PTSD Social History/Family History HIV/AIDS: No Recent Infectious Disease Expo: No Sexually Transmitted Disease: Yes (VAGINAL HERPES, NO TREATMENT) Alcohol Use: Denies Use Recreational Drug Use: No Smoking Cessation: Former smoker 2nd Hand Smoke Exposure: No Immunizations Hepatitis A: No Hepatitis B: No Tetanus Booster (TDap): Less than 5yrs (06/15/2017) Rubella: immune RPR/VDRL: Negative GBS Status: Positive HBsAG: Negative OB - Admission Exam Physical Exam Vitals: Vital Signs 08/19/17 08/19/17 01:53 07:12 Temp 97.4 Pulse 90 Resp 18 B/P (MAP) 141/84 (103) Pulse Ox 99 O2 Delivery Room Air Heart: Rhythm Normal Lungs: Clear Abdomen: Gravid Extremities: Normal Reflexes: Normal Cervical Dilatation: 10cm (Bulging bag) Effacement: 100% Station: 0 Membranes: Intact Heart Rate: 140's Accelerations: Accelerations Present Decelerations: No Decelerations Short Term Variability: Present Labs Laboratory Tests Test 08/18/17 19:50 Range/Units White Blood Count 8.6 4.3-11.0 10^3/uL Red Blood Count 3.96 L 4.35-5.85 10^6/uL Hemoglobin 13.4 11.5-16.0 G/DL Hematocrit 39 35-52 % Mean Corpuscular Volume 98 80-99 FL Mean Corpuscular Hemoglobin 34 25-34 PG Mean Corpuscular Hemoglobin Concent 35 32-36 G/DL Red Cell Distribution Width 14.1 10.0-14.5 % Platelet Count 240 130-400 10^3/uL Mean Platelet Volume 11.9 H 7.4-10.4 FL Neutrophils (%) (Auto) 76 H 42-75 % Lymphocytes (%) (Auto) 18 12-44 % Monocytes (%) (Auto) 5 0-12 % Eosinophils (%) (Auto) 0 0-10 % Basophils (%) (Auto) 0 0-10 % Neutrophils # (Auto) 6.6 1.8-7.8 X 10^3 Lymphocytes # (Auto) 1.6 1.0-4.0 X 10^3 Monocytes # (Auto) 0.4 0.0-1.0 X 10^3 Eosinophils # (Auto) 0.0 0.0-0.3 10^3/uL Basophils # (Auto) 0.0 0.0-0.1 10^3/uL OB - Assessment/Plan/Diagnosis Assessment Assessment: active labor, group B positive strep, induction of labor Admission Dx IOL now active labor Admission Status: Inpatient Order (span 2 midnights) Reason for Inpatient Admission: IOL now active labor Plan Plan: Induction Induction Method: AROM Other Plan IOL for Post dates - AROM now with clear fluid - Continue Amp for GBS - 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
--- NOTE | 2017-08-19 10:33 | OB Labor & Delivery Record ---
Vag Delivery Note Vag Delivery Note Date of Delivery: 08/19/17 Preoperative Diagnosis: Mandy Sanchez is a (27 /Para 5 /1 , Gestational Age (wks)40.4 Here for IOL for post dates Postoperative Diagnosis: Same Surgeon: ROJAS TYLER Maintenance Apprentice: None Anesthesia: Epidural Delivery Type: Findings: Term male infant, normal placenta Viable male , apgars 5/9, weight Lacerations: Right vaginal and letty urethral Intact placenta with 3 vessel cord. No nuchal cord, body cord or shoulder dystocia Estimated Blood Loss: 200 ml Complications: None Condition: Stable Description of Procedure: The patient is a 27 yo @ 40.4 here for IOL. She was admitted and informed consent was obtained. Her labor course was unremarkable. She progressed to complete dilatation and began to push. She was then set up for delivery. The 's head was delivered atraumatically in the VLADIMIR position. The shoulders and remainder of the infant's body were then delivered without difficulty. Upon delivery, the head was held below the level of the perineum and the mouth and nares were bulb suctioned. The cord was doubly clamped and cut and the infant was handed off to the pediatric staff who then called respiratory therapy and additional staff to help with resuscitation. got 1 min of PPE and was on RA by 0951. No other interventions were required and 5 min was 9. An intact placenta with 3-vessel cord delivered via Kevin and there was found to be minimal bleeding.~ Vigorous fundal massage was performed and the fundus was found to be firm. IV oxytocin was given. Examination of the vagina and perineum revealed a Right vaginal laceration repaired in the usual fashion with 3-0 Reped. Following the repair, sponge, instrument and needle counts were correct. Mom and baby were both in stable condition in the labor suite. Vitals - Labs Vital Signs - I&O Vital Signs Date Time Temp Pulse Resp B/P (MAP) Pulse Ox O2 Delivery O2 Flow Rate FiO2 08/19/17 07:12 90 18 141/84 (103) 99 Room Air 08/19/17 07:09 78 18 119/73 (88) 100 Room Air 08/19/17 07:06 78 18 133/89 (104) 100 Room Air 08/19/17 07:03 83 18 129/87 (101) 99 Room Air 08/19/17 07:00 84 18 133/88 (103) 99 Room Air 08/19/17 06:57 77 18 133/91 (105) 99 Room Air 08/19/17 06:54 85 18 143/89 (107) 100 Room Air 08/19/17 06:51 78 18 138/89 (105) 100 Room Air 08/19/17 06:47 90 18 139/78 (98) 100 Room Air 08/19/17 06:25 81 18 126/67 (86) Room Air 08/19/17 05:45 80 18 128/71 (90) 97 Room Air 08/19/17 04:45 78 18 123/74 (90) 97 Room Air 08/19/17 03:45 81 18 132/91 (105) 97 Room Air 08/19/17 02:45 90 20 119/77 (91) Room Air 08/19/17 01:53 97.4 74 18 123/76 (92) Room Air 08/19/17 00:44 96 20 125/82 (96) Room Air 08/18/17 23:44 73 20 125/76 (92) Room Air 08/18/17 22:39 82 20 122/79 (93) Room Air 08/18/17 22:02 95 20 125/78 (94) Room Air 08/18/17 21:32 93 18 128/75 (92) Room Air 08/18/17 21:03 97 18 127/94 (105) Room Air 08/18/17 20:31 97 20 127/88 (101) Room Air 08/18/17 19:09 98.4 114 20 133/89 (104) Room Air I & O 08/19/17 07:00 Intake Total 1950 ml Balance 1950 ml Labs Laboratory Tests 08/18/17 19:50: White Blood Count 8.6, Red Blood Count 3.96L, Hemoglobin 13.4, Hematocrit 39, Mean Corpuscular Volume 98, Mean Corpuscular Hemoglobin 34, Mean Corpuscular Hemoglobin Concent 35, Red Cell Distribution Width 14.1, Platelet Count 240, Mean Platelet Volume 11.9H, Neutrophils (%) (Auto) 76H, Lymphocytes (%) (Auto) 18, Monocytes (%) (Auto) 5, Eosinophils (%) (Auto) 0, Basophils (%) (Auto) 0, Neutrophils # (Auto) 6.6, Lymphocytes # (Auto) 1.6, Monocytes # (Auto) 0.4, Eosinophils # (Auto) 0.0, Basophils # (Auto) 0.0 ROJAS TYLER MD August 19, 2017 10:33
[2017-08-19] MEDS ORDERED: WITCH HAZEL(TUCKS) 40 EA JAR TOP PRN (10:45)
[2017-08-19] MEDS: IBUPROFEN 600 MG (MOTRIN) TAB PO SCH ×2 (11:09→18:35)
[2017-08-20] VITALS: BP 114/74
[2017-08-20 04:58] VITALS: BP 104/65
[2017-08-20] MEDS: IBUPROFEN 600 MG (MOTRIN) TAB PO SCH ×5 (05:00→23:58)
[2017-08-20 07:26] LABS: BASOPHILS % (AUTO) 0 % (0-10); EOSINOPHILS # (AUTO) 0.1 10^3/uL (0.0-0.3); EOSINOPHILS % (AUTO) 1 % (0-10); HEMATOCRIT 29 % (35-52); HEMOGLOBIN 9.9 G/DL (11.5-16.0); LYMPHOCYTES # (AUTO) 1.7 X 10^3 (1.0-4.0); LYMPHOCYTES % (AUTO) 18 % (12-44); MEAN CORPUSCULAR HEMOGLOBIN 34 PG (25-34); MEAN CORPUSCULAR HGB CONC 34 G/DL (32-36); MEAN CORPUSCULAR VOLUME 100 FL (80-99); MEAN PLATELET VOLUME 11.7 FL (7.4-10.4); MONOCYTES # (AUTO) 0.8 X 10^3 (0.0-1.0); MONOCYTES % (AUTO) 8 % (0-12); NEUTROPHILS % (AUTO) 73 % (42-75); PLATELET COUNT 174 10^3/uL (130-400); RED BLOOD COUNT 2.93 10^6/uL (4.35-5.85); RED CELL DISTRIBUTION WIDTH 14.3 % (10.0-14.5); WHITE BLOOD COUNT 9.6 10^3/uL (4.3-11.0)
[2017-08-20 08:30] VITALS: BP 135/81
[2017-08-20] MEDS: FERROUS SULF 325 MG (IRON) TAB PO SCH (08:30)
[2017-08-20] MEDS: PRENATAL VITAMIN 1 EA TAB PO SCH (08:30)
--- NOTE | 2017-08-20 10:55 | Anesthesia-Regional Post-Op ---
Regional Patient Condition Mental Status: Alert, Oriented x3 Circulation: Same as Pre-Op Headache: Absent Sensation: Full Recovery Motor Block: Absent Post Op Complications Complications None Follow Up Care/Instructions Patient Instructions None needed. Anesthesia/Patient Condition Patient is doing well, no complaints, stable vital signs, no apparent adverse anesthesia problems. No complications reported per nursing. [place] [facility] [place] Yes EDER ÁLVAREZ CRNA August 20, 2017 10:55
[2017-08-20] MEDS ORDERED: IBUP-844 PO (11:20)
[2017-08-20] MEDS ORDERED: FERR325T18 PO (11:20)
--- NOTE | 2017-08-20 11:21 | Discharge Instructions ---
Discharge Inst-Women's Serv Depart Medications New, Converted or Re-Newed RX: Transmitted to Pharmacy New Medications: Ferrous Sulfate (Ferrous Sulfate) 325 Mg Tablet 325 MG PO DAILY@0700, #30 TAB 0 Refills Ibuprofen (Ibu) 600 Mg Tablet 600 MG PO Q6H, #60 TAB 0 Refills Continued Medications: Fluticasone Propionate (Flonase Allergy Relief) 9.9 Ml [place].susp 9.9 ML NS PRN, SPRAY Multivitamin (Flintstones) 1 Each Tab.chew 2 EACH PO DAILY, TAB Follow Up/Instructions Goal/Follow Up: Follow up with Dr. Pearce in 6 weeks for visit. Activity Activity: Activity as Tolerated (avoid strenuous activity x 6 weeks) Nothing Inside Vagina: No Douching, No Edom, No Tampons Diet Discharge Diet: Regular Diet Symptoms to Report to : Swelling Increased, Bleeding Excessive, Fever Over 101 Degrees F, Pain/Pressure in Chest, Vaginal Bleeding Increase, Cramps in Feet or Legs, Vaginal Discharge Foul, Dizziness/Fainting, Shortness of Breath For Any Problems or Questions: Contact Your Physician Copies To 1: ROJAS PEARCE MD,EDIE Franklin MD August 20, 2017 11:21 am
--- NOTE | 2017-08-20 11:25 | Discharge Summary ---
Diagnosis/Chief Complaint Date of Admission August 18, 2017 at 7:00 pm Date of Discharge August 20, 2017 Admission Diagnosis Admission Diagnosis active labor group B positive strep planned induction of labor 40 weeks gestation Discharge Diagnosis s/p spontaneous vaginal delivery with right vaginal laceration repair asymptomatic anemia- started iron daily Chief Complaint/HPI Chief Complaint/HPI 27 yo G5 now [id number] presented for IOL for postdates, found to be in active labor. GBS pos, treated with ampicillin. History of HSV on acyclovir suppression. Discharge Summary-Simple/Stand Procedures spontaneous vaginal delivery with right vaginal laceration repair Discharge Physical Examination Allergies: Coded Allergies: strawberry (Verified Allergy, Severe, 11/13/16) cyclobenzaprine (Verified Allergy, Unknown, 11/27/16) latex (Verified Allergy, Unknown, 05/20/14) acetaminophen (Verified Adverse Reaction, Unknown, CONFUSION, 05/21/14) butalbital (Verified Adverse Reaction, Unknown, CONFUSION, 05/21/14) Vitals & I&Os Vital Sign - Last 12Hours Date Time Temp Pulse Resp B/P (MAP) Pulse Ox O2 Delivery O2 Flow Rate FiO2 08/20/17 04:58 97.0 98 20 104/65 (78) 97 Room Air General Appearance: Alert, No Acute Distress Respiratory: Clear to Auscultation, Normal Air Movement Cardiovascular: Regular Rate, No Murmurs Abdominal: No Tenderness, Other (fundus firm below umbilicus) Extremities: Other (trace edema both legs) Neuro: Normal Speech Psych/Mental Status: Mental Status NL Hospital Course See final discharge diagnosis. Discharge Instructions to patient/family Please see electronic discharge instructions given to patient. Discharge Medications Reviewed and agree with Discharge Medication list on patient's Discharge Instruction sheet Clinical Quality Measures DVT/VTE Risk/Contraindication: Risk Factor Score Per Nursin RFS Level Per Nursing on Admit: 2=Moderate Copy Copies To 1: ROJAS TYLER MD, BETHANY N MD August 20, 2017 11:25 am
[2017-08-20] MEDS: CATHETER FLUSH 10 ML SYR IV SCH (12:23)
[2017-08-20 12:30] VITALS: BP 125/72
[2017-08-20 17:47] VITALS: BP 130/68
[2017-08-20] MEDS: BENZOCAINE/MENTHOL (DERMOPLAST) 56 ML CAN TP PRN (21:07)
[2017-08-21] VITALS: BP 120/71
[2017-08-21 04:17] VITALS: BP 112/72
[2017-08-21] MEDS: IBUPROFEN 600 MG (MOTRIN) TAB PO SCH ×3 (06:21→18:16)
[2017-08-21 09:37] VITALS: BP 115/70
[2017-08-21] MEDS: FERROUS SULF 325 MG (IRON) TAB PO SCH (09:37)
[2017-08-21] MEDS: PRENATAL VITAMIN 1 EA TAB PO SCH (09:37)
[2017-08-21] MEDS: CATHETER FLUSH 10 ML SYR IV SCH (09:45)
[2017-08-21 15:00] VITALS: BP 120/77
[2017-08-21] MEDS: BENZOCAINE/MENTHOL (DERMOPLAST) 56 ML CAN TP PRN (18:17)
== END 2017-08-21 18:25 | disposition home or self-care (01) | DRG 774 ==
LOC: LDRP 19:00
PROVIDERS: ADMIT Family Medicine; ATTEND Family Medicine
PROC: 0UQMXZZ Repair Vulva, External Approach (ICD-10-PCS; principal; 2017-08-19)
PROC: 10E0XZZ Delivery of Products of Conception, External Approach (ICD-10-PCS; 2017-08-19)
PROC: 10907ZC Drainage of Amniotic Fluid, Therapeutic from Products of Conception, Via Natural or Artificial Opening (ICD-10-PCS; 2017-08-19)
DX: O48.0 Post-term pregnancy (principal); O71.82 Other specified trauma to perineum and vulva; O99.824 Streptococcus B carrier state complicating childbirth; O99.284 Endocrine, nutritional and metabolic diseases complicating childbirth; E28.2 Polycystic ovarian syndrome; O99.344 Other mental disorders complicating childbirth; O98.32 Other infections with a predominantly sexual mode of transmission complicating childbirth; F43.10 Post-traumatic stress disorder, unspecified; O90.81 Anemia of the puerperium; Z87.891 Personal history of nicotine dependence; Z3A.40 40 weeks gestation of pregnancy; Z37.0 Single live birth
CPT/HCPCS: 36415; 85025; 86850; 86900; 86901

== ENCOUNTER → 2018-03-11 | Outpatient (CLI) | payer MEDICAID ==
[~2018-03-11] MED LIST changes: +FERR325T18 PO; +IBUP-844 PO; +METF-399 PO; -METF10002 PO
--- NOTE | 2018-03-11 11:19 | Diagnostic Imaging Report ---
Indication: Palpable abnormality in the right breast. Technique: Multiple time grayscale images were obtained of the right breast in various projections. Findings: There is no evidence of discrete solid or cystic mass in the right breast. Impression: Negative right breast ultrasound. Dictated by: Dictated on workstation # [id number]
== END ==
LOC: RAD 08:57
PROVIDERS: ATTEND Family Medicine
DX: N64.4 Mastodynia (principal)
CPT/HCPCS: 76641

== ENCOUNTER 2018-11-01 11:49 | Outpatient (RCR) | payer MEDICAID | END 2019-01-30 | disposition home or self-care (01) | LOC: CARD 11:49 | PROVIDERS: ATTEND Family Medicine | DX: R00.2 Palpitations (principal) | CPT/HCPCS: 93225; 93226 ==

== ENCOUNTER → 2019-01-27 | Outpatient (CLI) | payer MEDICAID ==
[~2019-01-27] VITALS: Ht 175.3 cm; Wt 102.3 kg
[~2019-01-27] MED LIST changes: +GADOBUTROL 7.5 MMOL/7.5 ML (GADAVIST) VIAL IV ONE; +IOHEXOL 240 MGI/ML 20 ML (OMNIPAQUE) VIAL IV ONE
--- NOTE | 2019-01-27 09:31 | Diagnostic Imaging Report ---
INDICATION: Right shoulder pain. FINDINGS: Patient was brought to the procedure room, placed on the table in the supine position. The skin of the right shoulder was prepped and draped in usual sterile fashion. A small amount of 1% lidocaine was utilized for local anesthesia. 22-gauge needle was advanced into the right shoulder at the rotator interval. 15 mL solution of iodinated contrast, normal saline, and gadolinium was injected under fluoroscopic observation. The needle was withdrawn and hemostasis was obtained using manual compression. Patient tolerated the procedure well and was sent to MRI in satisfactory condition. Total of 20 seconds of fluoroscopic time was utilized. IMPRESSION: Successful fluoroscopically assisted right shoulder injection for MRI. Dictated by: Dictated on workstation # [id number]
--- NOTE | 2019-01-27 09:57 | Diagnostic Imaging Report ---
EXAMINATION: Magnetic resonance imaging of the right shoulder with intra-articular contrast. DATE: January 27, 2019. COMPARISON: Right shoulder arthrogram January 27, 2019. HISTORY: 28-year-old female, right shoulder pain. TECHNIQUE: Magnetic Resonance Imaging sequences were performed of the shoulder following the intra-articular administration of contrast. FINDINGS: ROTATOR CUFF, LIGAMENTS, TENDONS, AND MUSCLES: The supraspinatus, infraspinatus, teres minor, and subscapularis tendons and muscles are intact. There is normal rotator cuff muscle bulk and signal. LONG HEAD OF BICEPS: The long head of biceps tendon is positioned within the bicipital groove. The long head of biceps tendon is not present in its intra-articular segment. The long head of biceps tendon may be torn and retracted to the level of the upper margin of the bicipital groove. There is no clear evidence of biceps tenodesis. Recommend correlation with past surgical history. GLENOHUMERAL JOINT: The humeral head is well positioned relative to the glenoid. There is an anchor in the region of the anterior superior labrum at approximately the 2 o'clock position. There is no identified contrast-filled labral tear. There is a normal variant sub-labral sulcus. There is no identified paralabral cyst. The articular cartilage is grossly intact. There is no intra-articular body or prominent synovitis. ACROMIOCLAVICULAR JOINT: The acromioclavicular joint is normally aligned. The coracoclavicular and coracoacromial ligaments are intact. There are no degenerative changes of the acromioclavicular joint. BONE: The bones all have normal configuration. There is a low signal lesion in the acromion most likely relating to a bone island. There is no acute fracture, bone contusion, or evidence of osteonecrosis. BURSAE AND SOFT TISSUES: The bursae and soft tissue surrounding the shoulder are unremarkable. IMPRESSION: 1. The long head biceps tendon is not present in its intra-articular segment and is at the level of the upper aspect of the bicipital groove. The long head of biceps tendon may be torn and retracted to this position. Recommend correlation with past surgical history for possible biceps tenodesis. No identified clear evidence of biceps tenodesis on MRI. 2. Intact rotator cuff. 3. Intact acromioclavicular joint. 4. [place] in the region of the anterior superior labrum at approximately the 2 o'clock position. No contrast filled labral tear. No paralabral cyst. Intact articular cartilage. 5. No acute fracture, bone contusion, or evidence of osteonecrosis. Dictated by: Dictated on workstation # [id number]
== END ==
LOC: RAD 08:18
PROVIDERS: ATTEND Nurse Practitioner
DX: S43.431D Superior glenoid labrum lesion of right shoulder, subsequent encounter (principal); M75.101 Unspecified rotator cuff tear or rupture of right shoulder, not specified as traumatic
CPT/HCPCS: 23350; 73040; 73222

== ENCOUNTER 2019-08-15 18:51 | Emergency (ER) | payer MEDICAID ==
[~2019-08-15] VITALS: Ht 177.8 cm; Wt 100.0 kg
[~2019-08-15 18:51] MED LIST changes: -GADOBUTROL 7.5 MMOL/7.5 ML (GADAVIST) VIAL IV ONE; -IOHEXOL 240 MGI/ML 20 ML (OMNIPAQUE) VIAL IV ONE
--- NOTE | 2019-08-15 19:15 | NUR ---
cervical collar applied to patient
[2019-08-15] MEDS ORDERED: ONDANSETRON 4 MG (ZOFRAN) ORAL DISSOLVE TAB ONE (19:22)
[2019-08-15 19:43] LABS: BILIRUBIN,URINE NEGATIVE (NEGATIVE); CLARITY,URINE CLEAR; COLOR,URINE YELLOW; GLUCOSE, URINE (UA) NEGATIVE (NEGATIVE); KETONES,URINE NEGATIVE (NEGATIVE); LEUKOCYTE ESTERASE ,URINE 1+ (NEGATIVE); NITRITE,URINE NEGATIVE (NEGATIVE); PROTEIN,URINE NEGATIVE (NEGATIVE)
--- NOTE | 2019-08-15 19:43 | ED Fall/Injury ---
General Chief Complaint: Trauma-Non Activation Stated Complaint: FALL/HEAD PAIN/R ANKLE PAIN Source: patient History of Present Illness Date Seen by Provider: August 15, 2019 Time Seen by Provider: 19:14 Initial Comments PT ARRIVES VIA POV FROM HOME STATES SHE MISSED A STEP AND FELL DOWN THE LAST 4 STEPS, LANDING ON [place] ON HER RIGHT SIDE DID HIT THE RIGHT SIDE OF HER HEAD, NO LOSS OF CONSCIOUSNESS HIT HER RIGHT SHOULDER, HER RIGHT RIBS/UPPER ABDOMEN AND RIGHT FLANK AREA, RIGHT HIP AND TWISTED HER RIGHT ANKLE C/O NAUSEA, VOMITED X 1, NOW DRY HEAVES NO SHORTNESS 0F BREATH, BUT HURTS TO BREATHE IS ABLE TO PARTIALLY BEAR WEIGHT ON RIGHT LEG, BUT WITH PAIN TO RIGHT HIP AND ANKLE NO NECK OR BACK PAIN HAS CHRONIC RIGHT SHOULDER PAIN FROM OLD INJURIES, AND 2 PRIOR SURGERIES, BUT HURTS MORE THAN NORMAL SINCE THIS INJURY NO VISION CHANGES MILD DIZZINESS NO PARESTHESIAS OR MOTOR DEFICITS Allergies and Home Medications Allergies Coded Allergies: strawberry (Verified Allergy, Severe, 11/13/16) cyclobenzaprine (Verified Allergy, Unknown, 11/27/16) latex (Verified Allergy, Unknown, 05/20/14) acetaminophen (Verified Adverse Reaction, Unknown, CONFUSION, 05/21/14) butalbital (Verified Adverse Reaction, Unknown, CONFUSION, 05/21/14) Home Medications Ferrous Sulfate 325 Mg Tablet, 325 MG PO DAILY@0700 Prescribed by: EDIE SIFUENTES on 08/20/17 1120 Fluticasone Propionate 9.9 Ml [place].susp, 9.9 ML NS PRN, (Reported) Ibuprofen 600 Mg Tablet, 600 MG PO Q6H Prescribed by: EDIE SIFUENTES on 08/20/17 1120 Multivitamin 1 Each Tab.chew, 2 EACH PO DAILY, (Reported) Patient Home Medication List Home Medication List Reviewed: Yes Review of Systems Review of Systems Constitutional: no symptoms reported Eyes: No Symptoms Reported Ears, Nose, Mouth, Throat: no symptoms reported Respiratory: no symptoms reported Cardiovascular: see HPI Genitourinary: no symptoms reported LMP: August 08, 2019 Musculoskeletal: see HPI Skin: no symptoms reported Psychiatric/Neurological: See HPI, Headache; Denies Numbness, Denies Paresthesia, Denies Seizure, Denies Tingling, Denies Tremors, Denies Weakness Past Pnuqabq-Vcgivy-Ckfxfr Hx Past Med/Social Hx: Reviewed and Corrections made Patient Social History Type Used: Cigarettes 2nd Hand Smoke Exposure: No Recent Foreign Travel: No Contact w/Someone Who Travel: No Recent Hopitalizations: No Immunizations Up To Date Tetanus Booster (TDap): Less than 5yrs PED Vaccines UTD: No Seasonal Allergies Seasonal Allergies: No Past Medical History Surgeries: Yes (D&C X 1 ; WISDOM TEETH REMOVED;R SHOULDER SURGERY X 2-BICEPS TENDON/LABRUM) Gallbladder, Orthopedic Respiratory: No Cardiac: No Neurological: Yes Headaches /Migraines Reproductive Disorders: Yes Female Reproductive Disorders: Menstrual Problems, Polycystic Ovarian Dis Sexually Transmitted Disease: Yes (VAGINAL HERPES, NO TREATMENT) HIV/AIDS: No Genitourinary: No Gastrointestinal: No Musculoskeletal: Yes (RIGHT SHOULDER SURGERY X 2-BICEPS TENDON/LABRUM; CHRONIC R SHOULDER PAIN) Endocrine: Yes (INSULIN RESISTANCE; PCOS) Adrenal Disease HEENT: Yes (wears glasses) Hearing Impairment: Hard of Hearing Cancer: No Psychosocial: No Integumentary: Yes Herpes Blood Disorders: No Family Medical History FH: hepatitis 19 FATHER Hypertension 19 MOTHER Myocardial infarction MATERNAL GRANDFATHER PATERNAL UNCLE Physical Exam Vital Signs Vital Signs - First Documented Capillary Refill : Height, Weight, BMI Height: 5'9.00" Weight: 246lbs. 14.0oz. [id number]; 33.28 BMI Method:Stated General Appearance: WD/WN HEENT: PERRL/EOMI, normal ENT inspection, TMs normal, pharynx normal, other (NO EXTERNAL EVIDENCE OF TRAUMA) Neck: non-tender, full range of motion, supple, normal inspection Cardiovascular: normal peripheral pulses, regular rate, rhythm, no edema, no JVD, no murmur Respiratory: normal breath sounds, no respiratory distress, no accessory muscle use, other (TENDERNESS TO RIGHT ANTERIOR MID AND LOWER RIB AREA, AND RIGHT LATERAL RIB AREA. NO CREPITANCE OR SUB Q AIR. NO EXTERNAL EVIDENCE OF TRAUMA) Peripheral Pulses: 2+ Dorsalis Pedis (R), 2+ Left Dors-Pedis (L), 2+ Radial Pulses (R), 2+ Radial Pulses (L) Gastrointestinal: normal bowel sounds, soft, no organomegaly, no pulsatile mass; No distended, No guarding, No rebound; tenderness (RUQ, RIGHT MID ABDOMEN AND RIGHT FLANK TENDERNESS, NO EXTERNAL EVIDENCE OF TRAUMA. ) Back: no vertebral tenderness, CVA tenderness (R) Extremities: no pedal edema, normal capillary refill, other (TENDERESS TO RIGHT SHOULDER, SCAPULA AND DISTAL CLAVICLE AREA-NO EXTERNAL EVIDENCE OF TRAUMA. LIMITED ROM. NO CREPITANCE. NO DEFORMITY. TENDERNESS TO RIGHT HIP, FULL ROM, NO EXTERNAL EVIDENCE OF TRAUMA. NO DEFORMITY. TENDERNESS TO RIGHT LATERAL MALLEOLUS AREA. LIMITED ROM, NO OBVIOUS EXTERNAL EVIDENCE OF TRAUMA, NO DEFORMITY. LIMITED ROM DUE TO PAIN. LIMITED WEIGHT BEARING DUE TO PAIN. DISTAL MOTOR/SENSORY/VASCULAR INTACT.) Neurologic/Psychiatric: bodybuilder II-XII nml as tested, no motor/sensory deficits, alert, normal mood/affect, oriented x 3 Skin: normal color, warm/dry; No ecchymosis, No rash Procedures/Interventions Splinting and Joint Reduction : William wrap: Yes Splints: Air Stirrup [place] Progress/Results/Core Measures Results/Orders Lab Results Laboratory Tests Test 08/15/19 19:18 08/15/19 19:34 Range/Units Urine Color YELLOW Urine Clarity CLEAR Urine pH 6.0 5-9 Urine Specific [place] 1.025 H 1.016-1.022 Urine Protein NEGATIVE NEGATIVE Urine Glucose (UA) NEGATIVE NEGATIVE Urine Ketones NEGATIVE NEGATIVE Urine Nitrite NEGATIVE NEGATIVE Urine Bilirubin NEGATIVE NEGATIVE Urine Urobilinogen 0.2 < = 1.0 MG/DL Urine Leukocyte Esterase 1+ H NEGATIVE Urine RBC (Auto) NEGATIVE NEGATIVE Urine RBC NONE /HPF Urine WBC 5-10 H /HPF Urine Squamous Epithelial Cells 10-25 H /HPF Urine Crystals NONE /LPF Urine Bacteria FEW H /HPF Urine Casts NONE /LPF Urine Mucus NEGATIVE /LPF Urine Culture Indicated NO White Blood Count 7.3 4.3-11.0 10^3/uL Red Blood Count 4.44 4.35-5.85 10^6/uL Hemoglobin 14.6 11.5-16.0 G/DL Hematocrit 42 35-52 % Mean Corpuscular Volume 94 80-99 FL Mean Corpuscular Hemoglobin 33 25-34 PG Mean Corpuscular Hemoglobin Concent 35 32-36 G/DL Red Cell Distribution Width 12.4 10.0-14.5 % Platelet Count 256 130-400 10^3/uL Mean Platelet Volume 11.2 H 7.4-10.4 FL Neutrophils (%) (Auto) 58 42-75 % Lymphocytes (%) (Auto) 37 12-44 % Monocytes (%) (Auto) 5 0-12 % Eosinophils (%) (Auto) 1 0-10 % Basophils (%) (Auto) 0 0-10 % Neutrophils # (Auto) 4.2 1.8-7.8 X 10^3 Lymphocytes # (Auto) 2.7 1.0-4.0 X 10^3 Monocytes # (Auto) 0.4 0.0-1.0 X 10^3 Eosinophils # (Auto) 0.1 0.0-0.3 10^3/uL Basophils # (Auto) 0.0 0.0-0.1 10^3/uL Prothrombin Time 13.3 12.2-14.7 SEC INR Comment 1.0 0.8-1.4 Activated Partial Thromboplast Time 28 24-35 SEC Sodium Level 140 135-145 MMOL/L Potassium Level 3.9 3.6-5.0 MMOL/L Chloride Level 106 98-107 MMOL/L Carbon Dioxide Level 22 21-32 MMOL/L Anion Gap 12 5-14 MMOL/L Blood Urea Nitrogen 8 7-18 MG/DL Creatinine 0.70 0.60-1.30 MG/DL Estimat Glomerular Filtration Rate > 60 BUN/Creatinine Ratio 11 Glucose Level 93 70-105 MG/DL Calcium Level 10.0 8.5-10.1 MG/DL Corrected Calcium 8.5-10.1 MG/DL Total Bilirubin 0.3 0.1-1.0 MG/DL Aspartate Amino Transf (AST/SGOT) 18 5-34 U/L Alanine Aminotransferase (ALT/SGPT) 24 0-55 U/L Alkaline Phosphatase 79 40-136 U/L Total Protein 7.9 6.4-8.2 GM/DL Albumin 4.8 H 3.2-4.5 GM/DL Amylase Level 39 25-125 U/L Lipase 20 8-78 U/L My Orders Orders - JER ARGUELLO DO Urine Bedside (08/15/19 19:15) Ct Head/Cervical Spine Wo (08/15/19 19:15) Ankle, Right, 3 Views (08/15/19 19:15) Cervical Collar (08/15/19 19:15) Ondansetron Oral Dissolve Tab (Zofran (08/15/19 19:22) Chest 1 View, Ap/Pa Only (08/15/19 19:34) Shoulder, Right, 3 Views (08/15/19 19:34) Pelvis With Right Hip 2-3views (08/15/19 19:34) Ct Chest/Abdomen/Pelvis W (08/15/19 19:34) Amylase (08/15/19 19:35) Cbc With Automated Diff (08/15/19 19:35) Comprehensive Metabolic Panel (08/15/19 19:35) Lipase (08/15/19:35) Protime With Inr (08/15/19:35) Partial Thromboplastin Time (08/15/19 19:35) Ua Culture If Indicated (08/15/19:35) Iohexol Injection (Omnipaque 350 Mg/Ml 1 (08/15/19:45) Received Contrast (Hold Metformin- Contr (08/15/19:45) Ns (Ivpb) (Sodium Chloride 0.9% Ivpb Bag (08/15/19:45) William Bandage (08/15/19 20:52) Gel Ankle Brace (08/15/19 20:52) Rx-Ondansetron Po (Rx-Zofran Po) (08/15/19 20:55) Medications Given in ED Current Medications Medications Dose Ordered Sig/Joleen Route Start Time Stop Time Status Last Admin Dose Admin Iohexol 100 ml ONCE ONCE IV 08/15/19 19:45 08/15/19 19:57 DC 08/15/19 19:58 100 ML Ondansetron HCl 4 mg STK-MED ONCE .ROUTE 08/15/19 19:22 08/15/19 19:30 DC 08/15/19 19:33 8 MG Sodium Chloride 100 ml ONCE ONCE IV 08/15/19 19:45 08/15/19 19:57 DC 08/15/19 19:58 90 ML Vital Signs/I&O 08/15/19 08/15/19 19:06 19:06 Temp 36.8 36.8 Pulse 77 77 Resp 20 20 B/P (MAP) 136/85 (102) 136/85 (102) Pulse Ox 98 98 O2 Delivery Room Air Room Air Progress Progress Note : Progress Note CERVICAL COLLAR PLACED ON ARRIVAL. GIVEN ZOFRAN FOR NAUSEA. NO FURTHER NAUSEA DURING ER STAY 2052--CERVICAL COLLAR REMOVED AFTER RECEIVING RADIOLOGIST REPORT OF NORMAL CT OF CERVICAL SPINE. Diagnostic Imaging Comments ALL PER RADIOLOGIST REPORTS AT 2046: CXR-NO ACUTE PROCESS PELVIS/RIGHT HIP XRAYS--NO ACUTE PROCESS RIGHT SHOULDER XRAYS--NO ACUTE PROCESS, OLD POST OP CHANGES RIGHT ANKLE XRAYS--NO ACUTE PROCESS CT HEAD/CERVICAL SPINE--PER RADIOLOGIST REPORT AT 2034 IMPRESSION: 1. No CT evidence of an acute intracranial abnormality. 2. No CT evidence of acute cervical spinal fracture or traumatic malalignment. 3. Nonspecific mildly prominent small cervical lymph nodes. In a patient of this age, a reactive process would be the primary consideration. CT CHEST/ABDOMEN/PELVIS--PER RADIOLOGIST REPORT AT [address]: 1[address] evidence of an acute inflammatory or obstructive process within the abdomen or pelvis. 2. Unchanged right middle lobe pulmonary granulomas. 3. Previous cholecystectomy. There is no biliary dilatation. 4. No solid organ injury within the abdomen and pelvis. There is no free fluid or hemoperitoneum. 5. No bowel obstruction. There is moderate stool within the colon. There are a few uncomplicated colonic diverticula. 6. Probable right ovarian cyst. The right adnexa appears bilobed. Consider follow-up with pelvic ultrasound. 7. No acute osseous abnormality. Reviewed: Reviewed by Me Departure Impression Primary Impression: S/P FALL DOWN STAIRS Additional Impressions: Contusion of right shoulder RIGHT CHEST AND ABDOMINAL CONTUSION Contusion of right hip Right ankle sprain Minor head injury without loss of consciousness CERVIAL SPINE STRAIN Disposition: 01 HOME, SELF-CARE Condition: Stable Departure-Patient Inst. Referrals: ROJAS TYLER MD (PCP/Family) Primary Care Physician Patient Instructions: Ankle Sprain (DC), Minor Head Injury (DC), Shoulder Pain (DC), Contusion (DC) Add. Discharge Instructions: ICE TO SORE AREAS AT 20 MINUTE INTERVALS TYLENOL NEEDED FOR PAIN FOR FIRST 24 HOURS, THEN AFTER 24 HOURS YOU MAY ADD IBUPROFEN OR ALEVE WILLIAM WRAP AND SPLINT NEEDED FOR COMFORT ELEVATE RIGHT FOOT MUCH POSSIBLE FOLLOW UP WITH YOUR DR IN 3-4 DAYS IF NO BETTER, RETURN TO ER IF WORSE All discharge instructions reviewed with patient and/or family. Voiced understanding. JER ARGUELLO DO August 15, 2019 19:43
[2019-08-15] MEDS ORDERED: IOHEXOL 350 MG/ML 100 ML (OMNIPAQUE 350) VIAL IV ONE (19:45)
[2019-08-15] MEDS ORDERED: NS 100 ML (IVPB) BAG IV ONE (19:45)
[2019-08-15] MEDS ORDERED: HOLD METFORMIN - RECEIVED CONTRAST 20 ML VIAL IV SCH (19:45)
[2019-08-15 19:46] LABS: BASOPHILS % (AUTO) 0 % (0-10); EOSINOPHILS # (AUTO) 0.1 10^3/uL (0.0-0.3); EOSINOPHILS % (AUTO) 1 % (0-10); HEMATOCRIT 42 % (35-52); HEMOGLOBIN 14.6 G/DL (11.5-16.0); LYMPHOCYTES # (AUTO) 2.7 X 10^3 (1.0-4.0); LYMPHOCYTES % (AUTO) 37 % (12-44); MEAN CORPUSCULAR HEMOGLOBIN 33 PG (25-34); MEAN CORPUSCULAR HGB CONC 35 G/DL (32-36); MEAN CORPUSCULAR VOLUME 94 FL (80-99); MEAN PLATELET VOLUME 11.2 FL (7.4-10.4); MONOCYTES # (AUTO) 0.4 X 10^3 (0.0-1.0); MONOCYTES % (AUTO) 5 % (0-12); NEUTROPHILS # (AUTO) 4.2 X 10^3 (1.8-7.8); NEUTROPHILS % (AUTO) 58 % (42-75); PLATELET COUNT 256 10^3/uL (130-400); RED CELL DISTRIBUTION WIDTH 12.4 % (10.0-14.5); WHITE BLOOD COUNT 7.3 10^3/uL (4.3-11.0)
[2019-08-15 19:54] LABS: BACTERIA,URINE FEW /HPF
[2019-08-15 19:55] LABS: PROTHROMBIN TIME PATIENT 13.3 SEC (12.2-14.7)
[2019-08-15 20:04] LABS: ALANINE AMINOTRANSFERASE 24 U/L (0-55); ALBUMIN 4.8 GM/DL (3.2-4.5); ALKALINE PHOSPHATASE 79 U/L (40-136); AMYLASE 39 U/L (25-125); BILIRUBIN,TOTAL 0.3 MG/DL (0.1-1.0); BUN/CREATININE RATIO 11; CARBON DIOXIDE 22 MMOL/L (21-32); CHLORIDE 106 MMOL/L (98-107); GFR ESTIMATED > 60; GLUCOSE 93 MG/DL (70-105); LIPASE 20 U/L (8-78); POTASSIUM 3.9 MMOL/L (3.6-5.0); SODIUM 140 MMOL/L (135-145); TOTAL PROTEIN 7.9 GM/DL (6.4-8.2)
--- NOTE | 2019-08-15 20:13 | Diagnostic Imaging Report ---
PROCEDURE: CT head and CT cervical spine without contrast. TECHNIQUE: Multiple contiguous axial images were obtained through the brain and cervical spine without the use of intravenous contrast. Sagittal and coronal reformations through the cervical spine were then performed. Auto Exposure Controls were utilized during the CT exam to meet ALARA standards for radiation dose reduction. INDICATION: Fall. Headache with nausea and vomiting. Dizziness. COMPARISON: Head CT from May 202014. FINDINGS: CT of the head demonstrates no evidence of acute intracranial hemorrhage. There is no intracranial mass effect or shift. There is no hydrocephalus. There is no abnormal extra-axial fluid collection. Currie-white matter differentiation are maintained. There is no abnormal low density within the basal ganglia or the edna. Posterior fossa unremarkable. There are no findings of an acute calvarial fracture. The mastoids are clear. There is no fluid level in the paranasal sinuses. Cervical spinal alignment normal. There is normal alignment of the craniocervical junction. There are normal relationships of the lateral masses of C1 and C2. Facets normally aligned. There is no facet joint or disc space widening. Vertebral body heights are well-maintained. There is no abnormal prevertebral soft tissue thickening. No acute cervical spine fracture evident. There are no findings to suggest significant canal stenosis. The lung apices appear clear. Soft tissues of the neck demonstrate no acute process. There are small scattered cervical lymph nodes demonstrated throughout the neck. The largest is a right level 3 lymph node that measures 1.4 x 1.0 cm. IMPRESSION: 1. No CT evidence of an acute intracranial abnormality. 2. No CT evidence of acute cervical spinal fracture or traumatic malalignment. 3. Nonspecific mildly prominent small cervical lymph nodes. In a patient of this age, a reactive process would be the primary consideration. Dictated by: Dictated on workstation # [id number]
--- NOTE | 2019-08-15 20:27 | Diagnostic Imaging Report ---
PROCEDURE: CT chest, abdomen, and pelvis with contrast. TECHNIQUE: Multiple contiguous axial images were obtained through the chest, abdomen, and pelvis after the administration of intravenous contrast. Auto Exposure Controls were utilized during the CT exam to meet ALARA standards for radiation dose reduction. INDICATION: Headache and dizziness. Fall. Right flank and hip pain. FINDINGS: The lungs demonstrate no evidence of focal pulmonary infiltrate or consolidation. There is no effusion. There is no pneumothorax. There are large calcified granulomas present within the right middle lobe. These were also previously demonstrated in 2014. The thoracic aorta demonstrates no evidence of dissection or aneurysm. The main pulmonary arteries are normal in size. There is no pericardial collection. There is no pathologically enlarged mediastinal, hilar or axillary lymph nodes. The liver demonstrates no evidence of a focal intrahepatic abnormality. The patient is status post cholecystectomy without biliary dilatation. There is no perihepatic fluid. The spleen demonstrates no focal abnormality or adjacent fluid. The pancreas is unremarkable. There is no adrenal mass. The kidneys enhance normally and are not obstructed. Stomach nondistended. Duodenal sweep appropriately positioned. There are no findings of abnormal small bowel dilation. There is no abnormal small bowel thickening. The appendix is normal. There is moderate stool throughout the colon without evidence of abnormal colonic thickening. There is uncomplicated diverticulosis but no evidence to suggest diverticulitis. Urinary bladder and uterus are unremarkable by CT. Left ovary unremarkable. There is a nonspecific right adnexal focus that may be a right ovarian cyst. This could not be completely characterized with CT. Consider follow-up with pelvic sonography. No pathologic enlargement of abdominal or pelvic lymph nodes demonstrated. Aorta is normal in caliber. There are no findings of a rib fracture. There is no pelvic fracture or hip dislocation. Alignment of the thoracic and lumbar spine appears normal. The vertebral body heights are maintained. Facets normally aligned. There is no facet joint or disc space widening. No acute fractures are demonstrated. IMPRESSION: 1. No CT evidence of an acute inflammatory or obstructive process within the abdomen or pelvis. 2. Unchanged right middle lobe pulmonary granulomas. 3. Previous cholecystectomy. There is no biliary dilatation. 4. No solid organ injury within the abdomen and pelvis. There is no free fluid or hemoperitoneum. 5. No bowel obstruction. There is moderate stool within the colon. There are a few uncomplicated colonic diverticula. 6. Probable right ovarian cyst. The right adnexa appears bilobed. Consider follow-up with pelvic ultrasound. 7. No acute osseous abnormality. Dictated by: Dictated on workstation # [id number]
--- NOTE | 2019-08-15 20:38 | Diagnostic Imaging Report ---
INDICATION: Fall. Dizziness. FINDINGS: Lungs demonstrate no focal infiltrate or consolidation. There is no effusion. There is no pneumothorax. Heart size and mediastinal contours are appropriate. The pulmonary vascularity appears normal. No acute or suspicious osseous abnormality is demonstrated. IMPRESSION: 1. No radiographic evidence of an acute cardiopulmonary process. 2. No fractures are evident. Dictated by: Dictated on workstation # [id number]
--- NOTE | 2019-08-15 20:39 | Diagnostic Imaging Report ---
EXAMINATION: Right shoulder series INDICATION: Fall. FINDINGS: There are no findings of glenohumeral joint dislocation or AC joint malalignment. Proximal humerus demonstrates no acute fracture. There is a metallic marker along the proximal humerus that may relate to previous biceps tenodesis. The clavicle is intact. There is no disruption of the cortex of the scapula. Visualized portion of the right lung clear without rib fracture or pneumothorax. IMPRESSION: 1. No acute process evident at the right shoulder. There is no fracture or dislocation 2. Possible surgical changes of right sided biceps tenodesis. Dictated by: Dictated on workstation # [id number]
--- NOTE | 2019-08-15 20:41 | Diagnostic Imaging Report ---
INDICATION: Fall. Dizziness. FINDINGS: There is no hip dislocation. There is no disruption of the pelvic ring. There is no diastasis of the pubic symphysis or SI joints. No acute fractures are evident. Dedicated right hip series demonstrates unremarkable images of the proximal femur. IMPRESSION: 1. Negative radiographs of the pelvis and right hip. Dictated by: Dictated on workstation # [id number]
--- NOTE | 2019-08-15 20:45 | Diagnostic Imaging Report ---
INDICATION: Fall. FINDINGS: Alignment of the ankle appears appropriate. Distal fibula and tibia demonstrate no evidence of fracture. There is no widening of the ankle mortise. Talar dome normal in morphology. Hindfoot demonstrate a plantar calcaneal spur and is otherwise unremarkable. IMPRESSION: 1. No evidence of right ankle fracture or malalignment. Dictated by: Dictated on workstation # [id number]
[2019-08-15] MEDS ORDERED: RX-ONDANSETRON 4 MG ODT (ZOFRAN) PPK #4 PO STA (20:55)
[2019-08-15 21:12] VITALS: BP 120/78
== END 2019-08-15 21:08 | disposition home or self-care (01) ==
LOC: EDUNIT# 18:51 → ER 18:52
DX: S09.90XA Unspecified injury of head, initial encounter (principal); S93.401A Sprain of unspecified ligament of right ankle, initial encounter; S40.011A Contusion of right shoulder, initial encounter; S16.1XXA Strain of muscle, fascia and tendon at neck level, initial encounter; S70.01XA Contusion of right hip, initial encounter; S20.211A Contusion of right front wall of thorax, initial encounter; S30.1XXA Contusion of abdominal wall, initial encounter; G43.909 Migraine, unspecified, not intractable, without status migrainosus; Z91.040 Latex allergy status; Z88.6 Allergy status to analgesic agent; Z88.8 Allergy status to other drugs, medicaments and biological substances; Z79.51 Long term (current) use of inhaled steroids; Z82.49 Family history of ischemic heart disease and other diseases of the circulatory system; W10.9XXA Fall (on) (from) unspecified stairs and steps, initial encounter
CPT/HCPCS: 36415; 70450; 71045; 71260; 72125; 73030; 73610; 74177; 80053; 81000; 82150; 83690; 84703; 85025; 85610; 85730

== ENCOUNTER 2020-01-13 13:09 | Emergency (ER) | payer MEDICAID ==
[~2020-01-13] VITALS: Ht 177 cm; Wt 102.2 kg
--- NOTE | 2020-01-13 13:20 | NUR ---
TEOFILO NONE BY DR [employer] EDWIN.
[2020-01-13] MEDS ORDERED: LORazepam INJ 2 MG/ML (ATIVAN) VIAL IVP ONE (13:30)
[2020-01-13] MEDS ORDERED: ASPIRIN 81 MG CHEW (CHILDREN'S ASA) PO ONE (13:30)
[2020-01-13] MEDS ORDERED: LACTATED RINGERS 1,000 ML IV SCH (13:30)
--- NOTE | 2020-01-13 13:40 | ED Psychosocial ---
General Chief Complaint: Allergic Reaction Stated Complaint: ALLERGIC REACTION Source: patient Exam Limitations: no limitations History of Present Illness Date Seen by Provider: Jan 13, 2020 Time Seen by Provider: 13:11 Initial Comments Patient presents to ER by EMS from [facility] urgent care where she presented because she started feeling anxious hard to breathe and claims she had hives. Urgent care gave her 25 mg IM Benadryl and 0.3 mg of epinephrine IM. EMS arrived there is no IV in place and they did not witness any hives. The patient was hyperventilating and had carpopedal spasms. They gave her a milligram of Ativan and put her on a breathing treatment of albuterol for her shortness of air. Patient claims to have allergies to latex and strawberries. 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 She's not sure what she might of been exposed to. She denies ever having anaphylaxis in the past. She does not feel like her tongue is enlarged. She does not carry an epinephrine pen. She has a history of PCO S and hypertension. Family history of her mom has hypertension but no coronary disease. She does smoke occasionally but does not use drugs or drink alcohol. She says she's having some left-sided chest pain. No history of diabetes or hyperlipidemia. Allergies and Home Medications Allergies Coded Allergies: strawberry (Verified Allergy, Severe, 11/13/16) cyclobenzaprine (Verified Allergy, Unknown, 11/27/16) latex (Verified Allergy, Unknown, 05/20/14) acetaminophen (Verified Adverse Reaction, Unknown, CONFUSION, 05/21/14) butalbital (Verified Adverse Reaction, Unknown, CONFUSION, 05/21/14) Home Medications Ferrous Sulfate 325 Mg Tablet, 325 MG PO DAILY@0700 Prescribed by: EDIE SIFUENTES on 08/20/17 1120 Fluticasone Propionate 9.9 Ml [place].susp, 9.9 ML NS PRN, (Reported) Ibuprofen 600 Mg Tablet, 600 MG PO Q6H Prescribed by: EDIE SIFUENTES on 08/20/17 1120 Multivitamin 1 Each Tab.chew, 2 EACH PO DAILY, (Reported) Patient Home Medication List Home Medication List Reviewed: Yes Review of Systems Constitutional: No chills, No diaphoresis EENTM: No ear discharge, No hearing loss Respiratory: No cough, No short of breath Cardiovascular: see HPI, chest pain; No edema Gastrointestinal: No abdominal pain, No constipation, No nausea Genitourinary: No discharge, No dysuria Musculoskeletal: No back pain, No joint pain Psychiatric/Neurological: Anxiety All Other Systems Reviewed Negative Unless Noted: Yes Past Diivxio-Wxurnv-Rjcbto Hx Patient Social History Alcohol Use: Denies Use Recreational Drug Use: No Smoking Status: Current Everyday Smoker Type Used: Cigarettes 2nd Hand Smoke Exposure: No Recent Hopitalizations: No Immunizations Up To Date Tetanus Booster (TDap): Less than 5yrs PED Vaccines UTD: Yes Seasonal Allergies Seasonal Allergies: No Past Medical History Surgeries: Yes (D&C X 1 ; WISDOM TEETH REMOVED;R SHOULDER SURGERY X 2-BICEPS TENDON/LABRUM) Gallbladder, Orthopedic Respiratory: No Cardiac: No Neurological: Yes Headaches /Migraines Reproductive Disorders: Yes Female Reproductive Disorders: Menstrual Problems, Polycystic Ovarian Dis Sexually Transmitted Disease: Yes (VAGINAL HERPES, NO TREATMENT) HIV/AIDS: No Genitourinary: No Gastrointestinal: No Musculoskeletal: Yes (RIGHT SHOULDER SURGERY X 2-BICEPS TENDON/LABRUM; CHRONIC R SHOULDER PAIN) Endocrine: Yes (INSULIN RESISTANCE; PCOS) Adrenal Disease HEENT: Yes (wears glasses) Hearing Impairment: Hard of Hearing Cancer: No Psychosocial: No Integumentary: Yes Herpes Blood Disorders: No Family Medical History FH: hepatitis 19 FATHER Hypertension 19 MOTHER Myocardial infarction MATERNAL GRANDFATHER PATERNAL UNCLE Physical Exam Vital Signs - First Documented 01/13/20 13:09 Temp 35.8 Pulse 127 Resp 28 B/P (MAP) 132/64 (86) Pulse Ox 100 O2 Delivery Room Air Capillary Refill : Height, Weight, BMI Height: 5'9.00" Weight: 246lbs. 14.0oz. 111.467196ut; 31.00 BMI Method:Stated General Appearance: WD/WN, moderate distress HEENT: normal ENT inspection, TMs normal, pharynx normal Neck: full range of motion, supple, normal inspection Respiratory: lungs clear, normal breath sounds, no respiratory distress, accessory muscle use (breathing about 30-40 breaths per minute) Cardiovascular: normal peripheral pulses, regular rate, rhythm, tachycardia (115-125) Peripheral Pulses: 2+ Dorsalis Pedis (R), 2+ Left Dors-Pedis (L), 2+ Radial Pulses (R), 2+ Radial Pulses (L) Gastrointestinal: non tender, soft Neurologic/Psychiatric: alert, oriented x 3, other (anxious, panicky, tearful) Behavior/Eye Contact: cooperative, good eye contact; No normal speech (slow); decreased rate of speech Thoughts/Hallucinations: normal thought pattern, no apparent hallucination Skin: normal color, warm/dry Progress/Results/Core Measures Results/Orders Lab Results Laboratory Tests Test 01/13/20 13:20 01/13/20 15:10 01/13/20 16:10 01/13/20 16:53 Range/Units Blood Gas Puncture Site RIGHT RADIAL Blood Gas Patient Temperature 36.8 Arterial Blood pH 7.53 H 7.37-7.43 Arterial Blood Partial Pressure CO2 20 L 35-45 MMHG Arterial Blood Partial Pressure O2 106 H 79-93 MMHG Arterial Blood HCO3 17 *L 23-27 MMOL/L Arterial Blood Total CO2 17.5 L 21.0-31.0 MMOL/L Arterial Blood Oxygen Saturation 99 94-100 % Arterial Blood Base Excess -5.4 L -2.5-2.5 MMOL/L Michael Test YES-POS Blood Gas Ventilator Setting NO Blood Gas Inspired Oxygen ROOM AIR White Blood Count 9.4 4.3-11.0 10^3/uL Red Blood Count 4.04 3.80-5.11 10^6/uL Hemoglobin 13.3 11.5-16.0 g/dL Hematocrit 39 35-52 % Mean Corpuscular Volume 95 80-99 fL Mean Corpuscular Hemoglobin 33 25-34 pg Mean Corpuscular Hemoglobin Concent 35 32-36 g/dL Red Cell Distribution Width 12.1 10.0-14.5 % Platelet Count 199 130-400 10^3/uL Mean Platelet Volume 11.0 9.0-12.2 fL Immature Granulocyte % (Auto) 0 % Neutrophils (%) (Auto) 71 42-75 % Lymphocytes (%) (Auto) 22 12-44 % Monocytes (%) (Auto) 6 0-12 % Eosinophils (%) (Auto) 0 0-10 % Basophils (%) (Auto) 0 0-10 % Neutrophils # (Auto) 6.7 1.8-7.8 10^3/uL Lymphocytes # (Auto) 2.1 1.0-4.0 10^3/uL Monocytes # (Auto) 0.5 0.0-1.0 10^3/uL Eosinophils # (Auto) 0.0 0.0-0.3 10^3/uL Basophils # (Auto) 0.0 0.0-0.1 10^3/uL Immature Granulocyte # (Auto) 0.0 0.0-0.1 10^3/uL Sodium Level 140 135-145 MMOL/L Potassium Level 3.9 3.6-5.0 MMOL/L Chloride Level 104 98-107 MMOL/L Carbon Dioxide Level 22 21-32 MMOL/L Anion Gap 14 5-14 MMOL/L Blood Urea Nitrogen 8 7-18 MG/DL Creatinine 0.68 0.60-1.30 MG/DL Estimat Glomerular Filtration Rate > 60 BUN/Creatinine Ratio 12 Glucose Level 92 70-105 MG/DL Calcium Level 8.7 8.5-10.1 MG/DL Corrected Calcium 8.5 8.5-10.1 MG/DL Total Bilirubin 0.3 0.1-1.0 MG/DL Aspartate Amino Transf (AST/SGOT) 17 5-34 U/L Alanine Aminotransferase (ALT/SGPT) 28 0-55 U/L Alkaline Phosphatase 63 40-136 U/L Troponin I < 0.028 < 0.028 <0.028 NG/ML Total Protein 6.9 6.4-8.2 GM/DL Albumin 4.3 3.2-4.5 GM/DL Urine Color YELLOW Urine Clarity CLEAR Urine pH 6.0 5-9 Urine Specific [place] 1.015 L 1.016-1.022 Urine Protein NEGATIVE NEGATIVE Urine Glucose (UA) NEGATIVE NEGATIVE Urine Ketones TRACE H NEGATIVE Urine Nitrite NEGATIVE NEGATIVE Urine Bilirubin NEGATIVE NEGATIVE Urine Urobilinogen 0.2 < = 1.0 MG/DL Urine Leukocyte Esterase NEGATIVE NEGATIVE Urine RBC (Auto) NEGATIVE NEGATIVE Urine RBC NONE /HPF Urine WBC 0-2 /HPF Urine Squamous Epithelial Cells 5-10 /HPF Urine Crystals PRESENT H /LPF Urine Amorphous Sediment FEW MURPHY URATES H /LPF Urine Bacteria TRACE /HPF Urine Casts NONE /LPF Urine Mucus MODERATE H /LPF Urine Culture Indicated NO Urine Opiates Screen NEGATIVE NEGATIVE Urine Oxycodone Screen NEGATIVE NEGATIVE Urine Methadone Screen NEGATIVE NEGATIVE Urine Propoxyphene Screen NEGATIVE NEGATIVE Urine Barbiturates Screen NEGATIVE NEGATIVE Ur Tricyclic Antidepressants Screen NEGATIVE NEGATIVE Urine Phencyclidine Screen NEGATIVE NEGATIVE Urine Amphetamines Screen NEGATIVE NEGATIVE Urine Methamphetamines Screen NEGATIVE NEGATIVE Urine Benzodiazepines Screen POSITIVE H NEGATIVE Urine Cocaine Screen NEGATIVE NEGATIVE Urine Cannabinoids Screen NEGATIVE NEGATIVE My Orders Orders - RHODA BURGOS Lorazepam Injection (Ativan Injection) (01/13/20 13:30) Arterial Blood Gas (01/13/20 13:26) Cbc With Automated Diff (01/13/20 13:27) Comprehensive Metabolic Panel (01/13/20 13:27) Troponin I (01/13/20 13:27) Continuous Ekg Monitoring (01/13/20 13:27) Ekg Tracing (01/13/20 13:27) Chest 1 View, Ap/Pa Only (01/13/20 13:27) Aspirin Chewable Tablet (Baby Aspirin Ch (01/13/20 13:30) Lactated Ringers (Lr 1000 Ml Iv Solution (01/13/20 13:30) Ed Iv/Invasive Line Start (01/13/20 15:25) Lactated Ringers (Lr 1000 Ml Iv Solution (01/13/20 15:25) Ua Culture If Indicated (01/13/20 15:27) Drug Screen Stat (Urine) (01/13/20 15:27) Troponin I (01/13/20 16:51) Medications Given in ED Current Medications Medications Dose Ordered Sig/Joleen Route Start Time Stop Time Status Last Admin Dose Admin Aspirin 324 mg ONCE ONCE PO 01/13/20 13:30 01/13/20 13:31 DC 01/13/20 13:37 324 MG Lactated Ringer's 1,000 ml @ 0 mls/hr Q0M ONCE IV 01/13/20 15:25 01/13/20 15:26 DC 01/13/20 15:39 1,000 MLS/HR Lorazepam 1 mg ONCE ONCE IVP 01/13/20 13:30 01/13/20 13:31 DC 01/13/20 13:34 1 MG Vital Signs/I&O 01/13/20 13:09 Temp 35.8 Pulse 127 Resp 28 B/P (MAP) 132/64 (86) Pulse Ox 100 O2 Delivery Room Air Progress Progress Note #1: Time: 13:40 Progress Note No hives are seen at this time. She is not having angioedema or anaphylaxis at this time so no more epinephrine is required. We'll give a second milligram of Ativan as well as a liter fluids for her tachycardia and observe her for a short while. Because she's having left-sided chest pain it could be a type II in STEMI however remote or unlikely this is so we'll check some troponins now and again in about 2 hours and observe her in the meantime. ABG. Progress Note #2: Time: 16:53 Progress Note After 3 mg of Ativan the patient has been sleeping but she is arousable with noxious stimuli. She is protecting her airway and answers questions appropriately. Initial troponin is negative. Plan to get a second one since she was having some left-sided chest pain after the demonstration of epinephrine. If it is normal we'll let her go home. Her panic attack appears to have abated and after a couple liters of fluid her heart rate has now come down from 140s to 80- 90. Progress Note #3: Time: 17:22 Progress Note Ready to go home with 2 negative troponins. She says she feels 100% better. Were going to have her call someone to drive her home. Initial ECG Impression Date: Jan 13, 2020 Initial ECG Impression Time: 13:13 Initial ECG Rate: 139 Initial ECG Rhythm: S.Tach Initial ECG Intervals: QT (481) Initial ECG Impression: Normal, Nonspecific Changes Comment Sinus tachycardia with prolonged QTC. No clinically relevant ST changes. Diagnostic Imaging Diagonstic Imaging: Xray Plain Films/CT/US/NM/MRI: chest Comments NAME: ESTEFANY RODRIGUEZ MED REC#: [id number] PT STATUS: REG ER : 1990 PHYSICIAN: RHODA BURGOS MD ADMIT DATE: 01/13/20/ER Draft Date of Exam:01/13/20 CHEST 1 VIEW, AP/PA ONLY Indication: Left-sided chest pain. Comparison: 08/15/2019. Discussion: Single portable upright view of the chest was obtained. Very poor inspiratory effort with markedly low lung volumes. Large calcified granuloma within the right midlung is grossly stable. No pleural fluid or pneumothorax. No obvious consolidation. No osseous abnormality. Impression: 1. Markedly low lung volumes with no obvious abnormality. Dictated on workstation # [id number] Dict: 01/13/20 1430 Trans: 01/13/20 1431 [facility] [id number] Interpreted by: HUONG PHELPS MD Electronically signed by: Reviewed: Reviewed by Me Departure Impression Primary Impression: Panic attack Additional Impressions: Hives Mild dehydration Disposition: HOME, SELF-CARE Condition: Improved Departure-Patient Inst. Decision time for Depature: 17:20 Referrals: ROJAS TYLER MD (PCP/Family) Primary Care Physician Patient Instructions: Anxiety, Adult (DC), Hives (DC) Add. Discharge Instructions: If you developed hives, itchy rash of the skin you can use Claritin or Zyrtec once or twice a day. Benadryl 25 mg every 6 hours as necessary for breakthrough itching. If he started to have swelling in the back your throat or difficulty swallowing fluids and/or breathing then you need to promptly return to the nearest emergency room. Follow-up with your primary care doctor in the next week or 2 to discuss your symptoms. Today get some sleep, you should be okay to return to work tomorrow. All discharge instructions reviewed with patient and/or family. Voiced understanding. RHODA BURGOS Jan 13, 2020 13:40
[2020-01-13 13:45] LABS: ABG BASE EXCESS -5.4 MMOL/L (-2.5-2.5); ABG OXYGEN SATURATION 99 % (94-100); ABG PCO2 20 MMHG (35-45); ABG PH 7.53 (7.37-7.43); ABG PO2 106 MMHG (79-93); ABG TCO2 17.5 MMOL/L (21.0-31.0)
[2020-01-13 13:47] LABS: ALLENS TEST YES-POS; INSPIRED O2 ROOM AIR; PATIENT TEMP 36.8; VENTILATOR NO
--- NOTE | 2020-01-13 14:09 | NUR ---
PATIENT EYES CLOSED. WILL NOT RESPOND TO VOICE STERNAL RUB DONE OPEN EYES TO LOOK AT YOU.
--- NOTE | 2020-01-13 14:32 | Diagnostic Imaging Report ---
Indication: Left-sided chest pain. Comparison: 08/15/2019. Discussion: Single portable upright view of the chest was obtained. Very poor inspiratory effort with markedly low lung volumes. Large calcified granuloma within the right midlung is grossly stable. No pleural fluid or pneumothorax. No obvious consolidation. No osseous abnormality. Impression: 1. Markedly low lung volumes with no obvious abnormality. Dictated by: Dictated on workstation # [id number]
[2020-01-13 15:22] LABS: BASOPHILS % (AUTO) 0 % (0-10); EOSINOPHILS % (AUTO) 0 % (0-10); HEMATOCRIT 39 % (35-52); HEMOGLOBIN 13.3 g/dL (11.5-16.0); LYMPHOCYTES # (AUTO) 2.1 10^3/uL (1.0-4.0); LYMPHOCYTES % (AUTO) 22 % (12-44); MEAN CORPUSCULAR HEMOGLOBIN 33 pg (25-34); MEAN CORPUSCULAR HGB CONC 35 g/dL (32-36); MEAN CORPUSCULAR VOLUME 95 fL (80-99); MONOCYTES # (AUTO) 0.5 10^3/uL (0.0-1.0); MONOCYTES % (AUTO) 6 % (0-12); NEUTROPHILS # (AUTO) 6.7 10^3/uL (1.8-7.8); NEUTROPHILS % (AUTO) 71 % (42-75); PLATELET COUNT 199 10^3/uL (130-400); WHITE BLOOD COUNT 9.4 10^3/uL (4.3-11.0)
[2020-01-13] MEDS ORDERED: LACTATED RINGERS 1,000 ML IV ONE (15:25)
[2020-01-13 15:28] LABS: ALBUMIN 4.3 GM/DL (3.2-4.5); CHLORIDE 104 MMOL/L (98-107); POTASSIUM 3.9 MMOL/L (3.6-5.0); SODIUM 140 MMOL/L (135-145)
[2020-01-13 15:30] LABS: CALCIUM 8.7 MG/DL (8.5-10.1)
[2020-01-13 15:31] LABS: GLUCOSE 92 MG/DL (70-105); TOTAL PROTEIN 6.9 GM/DL (6.4-8.2)
[2020-01-13 15:32] LABS: BILIRUBIN,TOTAL 0.3 MG/DL (0.1-1.0); CARBON DIOXIDE 22 MMOL/L (21-32)
[2020-01-13 15:34] LABS: ALKALINE PHOSPHATASE 63 U/L (40-136); CREATININE SERUM 0.68 MG/DL (0.60-1.30); GFR ESTIMATED > 60
[2020-01-13 15:35] LABS: BUN/CREATININE RATIO 12
[2020-01-13 15:37] LABS: ALANINE AMINOTRANSFERASE 28 U/L (0-55)
--- NOTE | 2020-01-13 15:39 | NUR ---
2ND LR MATT WILL WILL NOT RESPOND TO VOICE REESPONDS TO STERNAL RUB. OPENS EYS AND WHEN ASKED IF TAKEN ANY MEDS THAT SHE SHOULD NOT HAVE SHAKES HER HEAD NO.
--- NOTE | 2020-01-13 16:19 | NUR ---
ASKED PATIENT IF I COULD CALL SOMEONE FOR HER SHE SHOOK HER HEAD NO.
[2020-01-13 16:26] LABS: BILIRUBIN,URINE NEGATIVE (NEGATIVE); CLARITY,URINE CLEAR; COLOR,URINE YELLOW; GLUCOSE, URINE (UA) NEGATIVE (NEGATIVE); KETONES,URINE TRACE (NEGATIVE); LEUKOCYTE ESTERASE ,URINE NEGATIVE (NEGATIVE); NITRITE,URINE NEGATIVE (NEGATIVE); PROTEIN,URINE NEGATIVE (NEGATIVE)
[2020-01-13 16:35] LABS: BACTERIA,URINE TRACE /HPF; WBC,URINE 0-2 /HPF
[2020-01-13 16:36] LABS: AMORPHOUS SEDIMENT,UR FEW AMOR URATES /LPF
[2020-01-13 16:37] LABS: AMPHETAMINE SCREEN, URINE NEGATIVE (NEGATIVE); BARBITURATE SCREEN URINE NEGATIVE (NEGATIVE); BENZODIAZEPINES SCREEN URINE POSITIVE (NEGATIVE); CANNABINOID SCREEN, URINE NEGATIVE (NEGATIVE); COCAINE SCREEN URINE NEGATIVE (NEGATIVE); METHADONE STAT NEGATIVE (NEGATIVE); METHAMPHETAMINE SCREEN URINE S NEGATIVE (NEGATIVE); OPIATE SCREEN URINE NEGATIVE (NEGATIVE); OXYCODONE STAT NEGATIVE (NEGATIVE); PROPOXYPHENE STAT NEGATIVE (NEGATIVE); TRICYCLIC ANTIDEPRESSANTS SCRE NEGATIVE (NEGATIVE)
--- NOTE | 2020-01-13 16:53 | NUR ---
2ND TROPONIN DRAWN
--- NOTE | 2020-01-13 17:24 | NUR ---
TO ROOM PATIENT GIVEN HER CELL PHONE WILL CALL SOMEONE TO COME GET HER.
--- NOTE | 2020-01-13 17:32 | NUR ---
WILL PUT CALL LIGHT ON WHEN SHE FINDS SOMEONE TO COME GET HER.
[2020-01-13 17:50] VITALS: BP 129/80
--- NOTE | 2020-01-13 17:50 | NUR ---
CALLED FRIEND TO COME GET HER
== END 2020-01-13 18:05 | disposition home or self-care (01) ==
LOC: EDUNIT# 13:09 → ER 13:10
DX: F41.0 Panic disorder [episodic paroxysmal anxiety] (principal); L50.9 Urticaria, unspecified; E86.0 Dehydration; F41.9 Anxiety disorder, unspecified; F17.210 Nicotine dependence, cigarettes, uncomplicated; Z82.49 Family history of ischemic heart disease and other diseases of the circulatory system; Z91.040 Latex allergy status; Z88.6 Allergy status to analgesic agent; Z88.8 Allergy status to other drugs, medicaments and biological substances
CPT/HCPCS: 36415; 51701; 71045; 80053; 80306; 81000; 82805; 84484; 85025; 93005

== ENCOUNTER 2021-01-01 11:52 | Emergency (ER) | payer MEDICAID ==
[~2021-01-01] VITALS: Ht 175.3 cm; Wt 95.3 kg
[2021-01-01] MEDS ORDERED: FAMOTIDINE 20MG/2ML IV (PEPCID) ONE (12:03)
[2021-01-01] MEDS ORDERED: methylPREDNISolone 125 MG (Solu-MEDROL) VIAL ONE (12:03)
[2021-01-01] MEDS ORDERED: diphenhydrAMINE 50 MG/ML INJ (BENADRYL) ONE (12:03)
--- NOTE | 2021-01-01 12:10 | ED General ---
General Chief Complaint: Allergic Reaction Stated Complaint: ALLERGIC REACTION Source of Information: Patient Exam Limitations: No Limitations History of Present Illness Date Seen by Provider: Jan 01, 2021 Time Seen by Provider: 12:08 Initial Comments To ER by private vehicle with reports of allergic reaction. 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 She herself is allergic to strawberries. She did not eat any but she helped clean them up. About 20 minutes ago she was exposed and she now has itching of the arms and upper chest, shortness of breath nausea and a cough. She stopped at a gas station on the way here to get some Benadryl but they were out. Timing/Duration: 1/2 Hour Severity: Moderate Allergies and Home Medications Allergies Coded Allergies: strawberry (Verified Allergy, Severe, 11/13/16) cyclobenzaprine (Verified Allergy, Unknown, 11/27/16) latex (Verified Allergy, Unknown, 05/20/14) acetaminophen (Verified Adverse Reaction, Unknown, CONFUSION, 05/21/14) butalbital (Verified Adverse Reaction, Unknown, CONFUSION, 05/21/14) Patient Home Medication List Home Medication List Reviewed: Yes (None) Ferrous Sulfate (Ferrous Sulfate) 325 Mg Tablet, 325 MG PO DAILY@0700 Prescribed by: EDIE SIFUENTES on 08/20/17 1120 Fluticasone Propionate (Flonase Allergy Relief) 9.9 Ml [place].susp, 9.9 ML NS PRN, (Reported) Entered as Reported by: CB LINDSEY on 03/27/17 0847 Ibuprofen (Ibu) 600 Mg Tablet, 600 MG PO Q6H Prescribed by: EDIE SIFUENTES on 08/20/17 1120 Multivitamin (Flintstones) 1 Each Tab.chew, 2 EACH PO DAILY, (Reported) Entered as Reported by: CB LINDSEY on 03/27/17 0846 Review of Systems Review of Systems Constitutional: see HPI EENTM: see HPI Respiratory: see HPI, cough Cardiovascular: no symptoms reported Genitourinary: no symptoms reported Musculoskeletal: no symptoms reported Skin: no symptoms reported Psychiatric/Neurological: No Symptoms Reported Hematologic/Lymphatic: No Symptoms Reported Past Pekepsu-Qylljn-Rmffnf Hx Immunizations Up To Date Tetanus Booster (TDap): Less than 5yrs PED Vaccines UTD: Yes Seasonal Allergies Seasonal Allergies: No Past Medical History Surgeries: Yes (D&C X 1 ; WISDOM TEETH REMOVED;R SHOULDER SURGERY X 2-BICEPS TENDON/LABRUM) Gallbladder, Orthopedic Respiratory: No Cardiac: No Neurological: Yes Headaches /Migraines Reproductive Disorders: Yes Female Reproductive Disorders: Menstrual Problems, Polycystic Ovarian Dis Sexually Transmitted Disease: Yes (VAGINAL HERPES, NO TREATMENT) HIV/AIDS: No Genitourinary: No Gastrointestinal: No Musculoskeletal: Yes (RIGHT SHOULDER SURGERY X 2-BICEPS TENDON/LABRUM; CHRONIC R SHOULDER PAIN) Endocrine: Yes (INSULIN RESISTANCE; PCOS) Adrenal Disease HEENT: Yes (wears glasses) Hearing Impairment: Hard of Hearing Cancer: No Psychosocial: No Integumentary: Yes Herpes Blood Disorders: No Family Medical History FH: hepatitis 19 FATHER Hypertension 19 MOTHER Myocardial infarction MATERNAL GRANDFATHER PATERNAL UNCLE Physical Exam Vital Signs Vital Signs - First Documented 01/01/21 12:00 Temp 36.8 Pulse 109 Resp 23 B/P (MAP) 131/13 (52) O2 Delivery Room Air Capillary Refill : Height, Weight, BMI Height: 5'9.00" Weight: 246lbs. 14.0oz. 111.531948nb; 32.00 BMI Method:Stated General Appearance: No Apparent Distress, WD/WN Eyes: Bilateral Eye Normal Inspection, Bilateral Eye PERRL, Bilateral Eye EOMI Respiratory: No Accessory Muscle Use, No Respiratory Distress, Other (Cough without wheezing or stridor. Good air movement) Cardiovascular: Normal Peripheral Pulses, Tachycardia (Rate of 120. Blood pressure 130/100) Gastrointestinal: Normal Bowel Sounds, Non Tender, Soft Extremity: Normal Capillary Refill, Normal Inspection Neurologic/Psychiatric: Alert, Oriented x3 Progress/Results/Core Measures Suspected Sepsis SIRS Temperature: Pulse: Respiratory Rate: Blood Pressure / Mean: Results/Orders My Orders Orders - GERONIMO PRUETT APRN Ed Iv/Invasive Line Start (01/01/21 12:07) Diphenhydramine Injection (Benadryl Inje (01/01/21 12:15) Methylprednisolone Sod Succ (Solu-Medrol (01/01/21 12:15) Famotidine Injection (Pepcid Injection) (01/01/21 12:15) Medications Given in ED Current Medications Medications Dose Ordered Sig/Joleen Route Start Time Stop Time Status Last Admin Dose Admin Diphenhydramine HCl 50 mg ONCE ONCE IVP 01/01/21 12:15 01/01/21 12:16 DC 01/01/21 12:13 50 MG Famotidine 20 mg ONCE ONCE IVP 01/01/21 12:15 01/01/21 12:16 DC 01/01/21 12:13 20 MG Methylprednisolone Sodium Succinate 125 mg ONCE ONCE IVP 01/01/21 12:15 01/01/21 12:16 DC 01/01/21 12:13 125 MG Vital Signs/I&O 01/01/21 12:00 Temp 36.8 Pulse 109 Resp 23 B/P (MAP) 131/13 (52) O2 Delivery Room Air Capillary Refill : Departure Communication (Admissions) [id number]-[id number] much better no rash no redness no itching Impression Primary Impression: Anaphylaxis Disposition: 01 HOME, SELF-CARE Condition: Critical Departure-Patient Inst. Decision time for Depature: 13:58 Referrals: ROJAS TYLER MD (PCP/Family) Primary Care Physician Patient Instructions: Anaphylaxis Add. Discharge Instructions: 1. Return to ER for any concerns 2. Follow-up with your doctor next week 3. Take Benadryl 1 tablet every 4 hours as needed for itching. Steroid as directed. Return to ER for any worsening. All discharge instructions reviewed with patient and/or family. Voiced understanding. Scripts Prednisone (Prednisone) 20 Mg Tab 40 MG PO DAILY, #4 TAB 0 Refills Prov: GERONIMO PRUETT APRN 01/01/21 GERONIMO PRUETT APRN Jan 01, 2021 12:10
[2021-01-01] MEDS ORDERED: methylPREDNISolone 125 MG (Solu-MEDROL) VIAL IVP ONE (12:15)
[2021-01-01] MEDS ORDERED: FAMOTIDINE 20MG/2ML IV (PEPCID) IVP ONE (12:15)
[2021-01-01] MEDS ORDERED: diphenhydrAMINE 50 MG/ML INJ (BENADRYL) IVP ONE (12:15)
[2021-01-01] MEDS ORDERED: PRD20T PO (13:59)
[2021-01-01 14:33] VITALS: BP 119/64
== END 2021-01-01 14:33 | disposition home or self-care (01) ==
LOC: EDUNIT# 11:52 → ER 11:54
DX: T78.2XXA Anaphylactic shock, unspecified, initial encounter (principal)

== ENCOUNTER 2021-08-21 19:35 | Emergency (ER) | payer MEDICAID ==
[~2021-08-21] VITALS: Ht 175 cm; Wt 102.2 kg
[~2021-08-21 19:35] MED LIST changes: +CYCL10TA25 PO; -CYCL10TA9 PO
[2021-08-21 20:03] VITALS: BP 134/109
[2021-08-21] MEDS ORDERED: CEPH500T PO ×2 (20:08→20:28)
--- NOTE | 2021-08-21 20:09 | ED Integumentary General ---
General Chief Complaint: Skin/Wound Problems Stated Complaint: CHEST WOUND Source: patient Exam Limitations: no limitations (DARRIAN PULIDO) History of Present Illness Date Seen by Provider: August 21, 2021 Time Seen by Provider: 20:05 Initial Comments Patient is a 31-year-old female presents ED with a laceration to her right breast. This occurred 30 minutes ago. Used a pocket knife to remove her bra. She states that she went down and caused a 5 to 6 cm superficial laceration. Bleeding controlled direct pressure. She reports pain. Not up-to-date on her tetanus. Denies stabbing into the chest wall or breast. Denies taking thing for pain. Patient is complaining of right-sided breast pain. (DARRIAN PULIDO) Allergies and Home Medications Allergies Coded Allergies: strawberry (Verified Allergy, Severe, 11/13/16) cyclobenzaprine (Verified Allergy, Unknown, 11/27/16) latex (Verified Allergy, Unknown, 05/20/14) acetaminophen (Verified Adverse Reaction, Unknown, CONFUSION, 05/21/14) butalbital (Verified Adverse Reaction, Unknown, CONFUSION, 05/21/14) Patient Home Medication List Home Medication List Reviewed: Yes (DARRIAN PULIDO) Cephalexin (Cephalexin) 500 Mg Tablet, 500 MG PO QID Prescribed by: RADHA RICHARDSON on 08/21/212027 Ferrous Sulfate (Ferrous Sulfate) 325 Mg Tablet, 325 MG PO DAILY@0700 Prescribed by: EDIE SIFUENTES on 08/20/17 1120 Fluticasone Propionate (Flonase Allergy Relief) 9.9 Ml [place].susp, 9.9 ML NS PRN, (Reported) Entered as Reported by: CB LINDSEY on 03/27/17 0847 Ibuprofen (Ibu) 600 Mg Tablet, 600 MG PO Q6H Prescribed by: EDIE SIFUENTES on 08/20/17 1120 Multivitamin (Flintstones) 1 Each Tab.chew, 2 EACH PO DAILY, (Reported) Entered as Reported by: CB LINDSEY on 03/27/17 0846 Naproxen (Naproxen) 500 Mg Tablet.dr, 500 MG PO BID Prescribed by: RADHA RICHARDSON on 08/21/212027 Neomycin Garcia/Bacitrac Zn/Poly (Neosporin Ointment) 3.5 Mg-400 Unit-5,000 Unit/Gram Oint...g., 28.3 GM TP BID Prescribed by: RADHA RICHARDSON on 08/21/212027 Prednisone (Prednisone) 20 Mg Tab, 40 MG PO DAILY Prescribed by: GERONIMO PRUETT on 01/01/21 1359 Discontinued Medications Cephalexin (Cephalexin) 500 Mg Tablet, 500 MG PO QID Prescribed by: RADHA RICHARDSON on 08/21/212007 Naproxen (Naproxen) 500 Mg Tablet.dr, 500 MG PO BID Prescribed by: RADHA RICHARDSON on 08/21/212009 Neomycin Garcia/Bacitrac Zn/Poly (Neosporin Ointment) 3.5 Mg-400 Unit-5,000 Unit/Gram Oint...g., 28.3 GM TP BID Prescribed by: RADHA RICHARDSON on 08/21/212010 Review of Systems Review of Systems Constitutional: No chills, No diaphoresis, No malaise, No weakness EENTM: No blurred vision, No double vision, No mouth pain, No mouth swelling Cardiovascular: No chest pain Gastrointestinal: No abdominal pain, No diarrhea, No nausea, No vomiting Genitourinary: No decreased output, No discharge Musculoskeletal: No back pain, No joint pain Skin: change in color (DARRIAN PULIDO) All Other Systems Reviewed Negative Unless Noted: Yes (DARRIAN PULIDO) Past Kdoptui-Ljpcgc-Tnxapq Hx Immunizations Up To Date Tetanus Booster (TDap): Less than 5yrs PED Vaccines UTD: Yes First/Initial COVID19 Vaccinat: 04/2020 Second COVID19 Vaccination Ashok: 05/2020 (DARRIAN PULIDO) Seasonal Allergies Seasonal Allergies: No (DARRIAN PULIDO) Past Medical History Surgeries: Yes (D&C X 1 ; WISDOM TEETH REMOVED;R SHOULDER SURGERY X 2-BICEPS TENDON/LABRUM) Gallbladder, Orthopedic Respiratory: No Cardiac: No Neurological: Yes Headaches /Migraines Reproductive Disorders: Yes Female Reproductive Disorders: Menstrual Problems, Polycystic Ovarian Dis Sexually Transmitted Disease: Yes (VAGINAL HERPES, NO TREATMENT) HIV/AIDS: No Genitourinary: No Gastrointestinal: No Musculoskeletal: Yes (RIGHT SHOULDER SURGERY X 2-BICEPS TENDON/LABRUM; CHRONIC R SHOULDER PAIN) Endocrine: Yes (INSULIN RESISTANCE; PCOS) Adrenal Disease HEENT: Yes (wears glasses) Hearing Impairment: Hard of Hearing Cancer: No Psychosocial: No Integumentary: Yes Herpes Blood Disorders: No (DARRIAN PULIDO) Family Medical History FH: hepatitis 19 FATHER Hypertension 19 MOTHER Myocardial infarction MATERNAL GRANDFATHER PATERNAL UNCLE Physical Exam Vital Signs Vital Signs - First Documented 08/21/21 20:03 Temp 36.1 Pulse 120 Resp 20 B/P (MAP) 134/109 (117) Pulse Ox 96 (SAUNDRA,JER K DO) Vital Signs Capillary Refill : (DARRIAN PULIDO) General Appearance: WD/WN, no apparent distress HEENT: PERRL/EOMI, normal ENT inspection, TMs normal, pharynx normal Neck: non-tender, full range of motion, supple Cardiovascular: regular rate, rhythm, no edema, no gallop, no JVD Respiratory: chest non-tender, lungs clear, normal breath sounds Gastrointestinal: normal bowel sounds, non tender, soft Back: normal inspection, no CVA tenderness Extremities: normal range of motion, no pedal edema Skin: other (4 cm superficial skin abrasion to the right outer lateral breast. No erythema, warmth) (DARRIAN PULIDO) Progress/Results/Core Measures Results/Orders Medications Given in ED Current Medications Medications Dose Ordered Sig/Joleen Route Start Time Stop Time Status Last Admin Dose Admin Diphtheria/ Tetanus/Acell Pertussis 0.5 ml ONCE ONCE IM 08/21/21 20:15 08/21/21 20:16 DC 08/21/21 20:19 0.5 ML (SAUNDRA,JER K DO) Vital Signs/I&O 08/21/21 20:03 Temp 36.1 Pulse 120 Resp 20 B/P (MAP) 134/109 (117) Pulse Ox 96 (SAUNDRA,JER K DO) Departure Communication (PCP) Superficial skin abrasion to right breast. No surrounding redness or swelling. Neosporin was applied topical. Irrigated and cleaned out with Shur-Clens and normal saline. Updated tetanus shot. Will discharge with Neosporin. If any worsening symptoms such as redness or swelling will discharge on Keflex. Anti- inflammatories for pain. This appears to be all superficial without any adipose involvement of the right breast. Return precaution were discussed with patient. (DARRIAN PULIDO) Impression Primary Impression: Skin abrasion Disposition: 01 HOME, SELF-CARE Condition: Stable Departure-Patient Inst. Decision time for Depature: 20:07 (DARRIAN PULIDO) Referrals: ROJAS TYLER MD (PCP/Family) Primary Care Physician Patient Instructions: Skin Abrasions Add. Discharge Instructions: All discharge instructions reviewed with patient and/or family. Voiced understanding. Scripts Naproxen (Naproxen) 500 Mg Tablet.dr 500 MG PO BID for 7 Days, #14 TAB Prov: DARRIAN PULIDO 08/21/21 Cephalexin (Cephalexin) 500 Mg Tablet 500 MG PO QID for 7 Days, #28 TAB Prov: DARRIAN PULIDO 08/21/21 Neomycin Garcia/Bacitrac Zn/Poly (Neosporin Ointment) 3.5 Mg-400 Unit-5,000 Unit/Gram Oint...g. 28.3 GM TP BID, #1 EA Prov: DARRIAN PULIDO 08/21/21 ATTENDING PHYSICIAN NOTE: I WAS PHYSICALLY PRESENT ER PHYSICIAN, BUT I WAS NOT INVOLVED IN ANY DECISION MAKING OR ANY CARE OF THIS PATIENT. (JER ARGUELLO DO) DARRIAN PULIDO August 21, 2021 20:09 JER ARGUELLO DO August 22, 2021 00:04
[2021-08-21] MEDS ORDERED: NAPR500T8 PO ×2 (20:10→20:28)
[2021-08-21] MEDS ORDERED: NEOM28.33 TP ×2 (20:11→20:28)
[2021-08-21] MEDS ORDERED: TETANUS,DIPTH,PERTUSS P/F (BOOSTRIX) 0.5 ML VIAL IM ONE (20:15)
== END 2021-08-21 20:31 | disposition home or self-care (01) ==
LOC: EDUNIT# 19:35 → ER 19:38
DX: S20.111A Abrasion of breast, right breast, initial encounter (principal); Z23 Encounter for immunization; W26.0XXA Contact with knife, initial encounter
CPT/HCPCS: 90715; 99283

== ENCOUNTER 2021-10-05 21:55 | Emergency (ER) | payer MEDICAID ==
[~2021-10-05] VITALS: Ht 177 cm; Wt 99.7 kg
[~2021-10-05 21:55] MED LIST changes: +CEPH500T PO; +NAPR500T8 PO; +NEOM28.33 TP
[2021-10-06 01:22] LABS: BASOPHILS # (AUTO) 0.1 10^3/uL (0.0-0.1); BASOPHILS % (AUTO) 1 % (0-10); BILIRUBIN,URINE NEGATIVE (NEGATIVE); CLARITY,URINE CLEAR; COLOR,URINE YELLOW; EOSINOPHILS # (AUTO) 0.2 10^3/uL (0.0-0.3); EOSINOPHILS % (AUTO) 2 % (0-10); GLUCOSE, URINE (UA) NEGATIVE (NEGATIVE); HEMATOCRIT 41 % (35-52); HEMOGLOBIN 13.9 g/dL (11.5-16.0); KETONES,URINE NEGATIVE (NEGATIVE); LEUKOCYTE ESTERASE ,URINE TRACE (NEGATIVE); LYMPHOCYTES # (AUTO) 3.4 10^3/uL (1.0-4.0); LYMPHOCYTES % (AUTO) 34 % (12-44); MEAN CORPUSCULAR HEMOGLOBIN 33 pg (25-34); MEAN CORPUSCULAR HGB CONC 34 g/dL (32-36); MEAN CORPUSCULAR VOLUME 98 fL (80-99); MEAN PLATELET VOLUME 10.7 fL (9.0-12.2); MONOCYTES # (AUTO) 0.6 10^3/uL (0.0-1.0); MONOCYTES % (AUTO) 6 % (0-12); NEUTROPHILS # (AUTO) 5.7 10^3/uL (1.8-7.8); NEUTROPHILS % (AUTO) 58 % (42-75); NITRITE,URINE NEGATIVE (NEGATIVE); PLATELET COUNT 289 10^3/uL (130-400); PROTEIN,URINE 1+ (NEGATIVE); WHITE BLOOD COUNT 9.9 10^3/uL (4.3-11.0)
[2021-10-06 01:28] LABS: BACTERIA,URINE TRACE /HPF; RBC,URINE >100 /HPF
--- NOTE | 2021-10-06 01:33 | ED GU-Female ---
General Chief Complaint: - Reproductive Stated Complaint: PELVIC PAIN/BLEEDING/IUD ISSUES Nursing Triage Note: PATIENT STATES SINCE 0200 AM SHE HAS BEEN HAVING LOWER PELVIC PAIN WITH VAGINAL BLEEDING AND CLOTS. PATIENT STATES SHE IS OVERDUE TO HAVE HER IUD OUT. Source: patient Allergies and Home Medications Allergies Coded Allergies: strawberry (Verified Allergy, Severe, 11/13/16) cyclobenzaprine (Verified Allergy, Unknown, 11/27/16) latex (Verified Allergy, Unknown, 05/20/14) acetaminophen (Verified Adverse Reaction, Unknown, CONFUSION, 05/21/14) butalbital (Verified Adverse Reaction, Unknown, CONFUSION, 05/21/14) Patient Home Medication List Cephalexin (Cephalexin) 500 Mg Tablet, 500 MG PO QID Prescribed by: RADHA RICHARDSON on 08/21/212027 Ferrous Sulfate (Ferrous Sulfate) 325 Mg Tablet, 325 MG PO DAILY@0700 Prescribed by: EDIE SIFUENTES on 08/20/17 1120 Fluticasone Propionate (Flonase Allergy Relief) 9.9 Ml [place].susp, 9.9 ML NS PRN, (Reported) Entered as Reported by: CB LINDSEY on 03/27/17 0847 Ibuprofen (Ibu) 600 Mg Tablet, 600 MG PO Q6H Prescribed by: EDIE SIFUENTES on 08/20/17 1120 Multivitamin (Flintstones) 1 Each Tab.chew, 2 EACH PO DAILY, (Reported) Entered as Reported by: CB LINDSEY on 03/27/17 0846 Naproxen (Naproxen) 500 Mg Tablet.dr, 500 MG PO BID Prescribed by: RADHA RICHARDSON on 08/21/212027 Neomycin Garcia/Bacitrac Zn/Poly (Neosporin Ointment) 3.5 Mg-400 Unit-5,000 Unit/Gram Oint...g., 28.3 GM TP BID Prescribed by: RADHA RICHARDSON on 08/21/212027 Prednisone (Prednisone) 20 Mg Tab, 40 MG PO DAILY Prescribed by: GERONIMO PRUETT on 01/01/21 1359 Past Pdcwzld-Hjuyys-Uxiqas Hx Immunizations Up To Date Tetanus Booster (TDap): Less than 5yrs PED Vaccines UTD: Yes First/Initial COVID19 Vaccinat: 2020 Second COVID19 Vaccination Ashok: 2020 Seasonal Allergies Seasonal Allergies: No Past Medical History Surgeries: Yes (D&C X 1 ; WISDOM TEETH REMOVED;R SHOULDER SURGERY X 2-BICEPS TENDON/LABRUM) Gallbladder, Orthopedic Respiratory: No Cardiac: No Neurological: Yes Headaches /Migraines Reproductive Disorders: Yes Female Reproductive Disorders: Menstrual Problems, Polycystic Ovarian Dis Sexually Transmitted Disease: Yes (VAGINAL HERPES, NO TREATMENT) HIV/AIDS: No Genitourinary: No Gastrointestinal: No Musculoskeletal: Yes (RIGHT SHOULDER SURGERY X 2-BICEPS TENDON/LABRUM; CHRONIC R SHOULDER PAIN) Endocrine: Yes (INSULIN RESISTANCE; PCOS) Adrenal Disease HEENT: Yes (wears glasses) Hearing Impairment: Hard of Hearing Cancer: No Psychosocial: No Integumentary: Yes Herpes Blood Disorders: No Family Medical History FH: hepatitis 19 FATHER Hypertension 19 MOTHER Myocardial infarction MATERNAL GRANDFATHER PATERNAL UNCLE Physical Exam Vital Signs Vital Signs - First Documented 10/05/21 23:33 Temp 37.2 Pulse 72 Resp 20 B/P (MAP) 133/96 (108) Pulse Ox 100 O2 Delivery Room Air Capillary Refill : Less Than 3 Seconds Height, Weight, BMI Height: 5'9.00" Weight: 246lbs. 14.0oz. [id number]; 31.00 BMI Method:Stated Progress/Results/Core Measures Suspected Sepsis SIRS Temperature: Pulse: 72 Respiratory Rate: 20 Laboratory Tests 10/06/21 01:10: White Blood Count 9.9 Blood Pressure 133 /96 Mean: 108 Laboratory Tests 10/06/21 01:10: Platelet Count 289 Results/Orders Lab Results Laboratory Tests Test 10/06/21 01:10 Range/Units White Blood Count 9.9 4.3-11.0 10^3/uL Red Blood Count 4.23 3.80-5.11 10^6/uL Hemoglobin 13.9 11.5-16.0 g/dL Hematocrit 41 35-52 % Mean Corpuscular Volume 98 80-99 fL Mean Corpuscular Hemoglobin 33 25-34 pg Mean Corpuscular Hemoglobin Concent 34 32-36 g/dL Red Cell Distribution Width 12.6 10.0-14.5 % Platelet Count 289 130-400 10^3/uL Mean Platelet Volume 10.7 9.0-12.2 fL Immature Granulocyte % (Auto) 0 % Neutrophils (%) (Auto) 58 42-75 % Lymphocytes (%) (Auto) 34 12-44 % Monocytes (%) (Auto) 6 0-12 % Eosinophils (%) (Auto) 2 0-10 % Basophils (%) (Auto) 1 0-10 % Neutrophils # (Auto) 5.7 1.8-7.8 10^3/uL Lymphocytes # (Auto) 3.4 1.0-4.0 10^3/uL Monocytes # (Auto) 0.6 0.0-1.0 10^3/uL Eosinophils # (Auto) 0.2 0.0-0.3 10^3/uL Basophils # (Auto) 0.1 0.0-0.1 10^3/uL Immature Granulocyte # (Auto) 0.0 0.0-0.1 10^3/uL Urine Color YELLOW Urine Clarity CLEAR Urine pH 6.0 5-9 Urine Specific [place] >=1.030 1.016-1.022 Urine Protein 1+ H NEGATIVE Urine Glucose (UA) NEGATIVE NEGATIVE Urine Ketones NEGATIVE NEGATIVE Urine Nitrite NEGATIVE NEGATIVE Urine Bilirubin NEGATIVE NEGATIVE Urine Urobilinogen 0.2 < = 1.0 MG/DL Urine Leukocyte Esterase TRACE H NEGATIVE Urine RBC (Auto) 3+ H NEGATIVE Urine RBC >100 H /HPF Urine WBC NONE /HPF Urine Squamous Epithelial Cells 10-25 H /HPF Urine Crystals NONE /LPF Urine Bacteria TRACE /HPF Urine Casts NONE /LPF Urine Mucus LARGE H /LPF Urine Culture Indicated NO My Orders Orders - JER ARGUELLO DO Cbc With Automated Diff (10/06/21 00:56) Ua Culture If Indicated (10/06/21 00:56) Urine Bedside (10/06/21 00:56) Vital Signs/I&O 10/05/21 23:33 Temp 37.2 Pulse 72 Resp 20 B/P (MAP) 133/96 (108) Pulse Ox 100 O2 Delivery Room Air Capillary Refill : Less Than 3 Seconds Blood Pressure Mean: 108 Departure Impression Primary Impression: Menorrhagia Disposition: 01 HOME, SELF-CARE Condition: Stable Departure-Patient Inst. Decision time for Depature: 02:23 Referrals: ROJAS TYLER MD (PCP/Family) Primary Care Physician Patient Instructions: Heavy Periods (DC) Add. Discharge Instructions: FOLLOW UP WITH DR. TYLER THIS WEEK FOR FURTHER CARE--CALL IN THE MORNING TO SCHEDULE APPOINTMENT All discharge instructions reviewed with patient and/or family. Voiced understanding. JER ARGUELLO DO Oct 06, 2021 01:33
[2021-10-06 02:37] VITALS: BP 128/94
== END 2021-10-06 02:37 | disposition home or self-care (01) ==
LOC: EDUNIT# 21:55 → ER 21:56
DX: N92.0 Excessive and frequent menstruation with regular cycle (principal); Z91.040 Latex allergy status
CPT/HCPCS: 36415; 81000; 84703; 85025

== ENCOUNTER 2021-10-28 10:04 | Emergency (ER) | payer MEDICAID ==
[~2021-10-28] VITALS: Ht 175 cm; Wt 97.0 kg
[2021-10-28] MEDS ORDERED: PRD50T PO (10:30)
[2021-10-28] MEDS ORDERED: predniSONE 20 MG TAB PO ONE (10:30)
[2021-10-28] MEDS ORDERED: FAMOTIDINE 20 MG (PEPCID) TABLET PO ONE (10:30)
[2021-10-28] MEDS ORDERED: LORATADINE (CLARITIN) 10 MG TAB PO ONE (10:30)
--- NOTE | 2021-10-28 10:30 | ED Integumentary General ---
General Chief Complaint: Allergic Reaction Stated Complaint: ALLERGIC REACTION Nursing Triage Note: ARRIVED VIA AMB TO ROOM 8 WITH COMPLAINTS OF HAVING AN ALLERGIC REACTION TO STRAWBERRIES. 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 Patient states she has a pretty significant strawberry allergy. She was exposed to children that were having strawberry for breakfast this morning. Patient states about 45 minutes ago she developed redness, itching and discomfort. She did take 2 mler-hql-inyxzmx Benadryl. She denies any trouble swallowing or breathing. No mouth or tongue swelling. No wheezing or respiratory distress. No other complaints of recent illness or injury Timing/Duration: just prior to arrival Severity: moderate Location: torso, extremities Possible Cause: foods Associated Symptoms: rash, other (pruritis) Allergies and Home Medications Allergies Coded Allergies: strawberry (Verified Allergy, Severe, 11/13/16) cyclobenzaprine (Verified Allergy, Unknown, 11/27/16) latex (Verified Allergy, Unknown, 05/20/14) acetaminophen (Verified Adverse Reaction, Unknown, CONFUSION, 05/21/14) butalbital (Verified Adverse Reaction, Unknown, CONFUSION, 05/21/14) Patient Home Medication List Home Medication List Reviewed: Yes Cephalexin (Cephalexin) 500 Mg Tablet, 500 MG PO QID Prescribed by: RADHA RICHARDSON on 08/21/212027 Ferrous Sulfate (Ferrous Sulfate) 325 Mg Tablet, 325 MG PO DAILY@0700 Prescribed by: EDIE SIFUENTES on 08/20/17 1120 Fluticasone Propionate (Flonase Allergy Relief) 9.9 Ml [place].susp, 9.9 ML NS PRN, (Reported) Entered as Reported by: CB LINDSEY on 03/27/17 0847 Ibuprofen (Ibu) 600 Mg Tablet, 600 MG PO Q6H Prescribed by: EDIE SIFUENTES on 08/20/17 1120 Multivitamin (Flintstones) 1 Each Tab.chew, 2 EACH PO DAILY, (Reported) Entered as Reported by: CB LINDSEY on 03/27/17 0846 Naproxen (Naproxen) 500 Mg Tablet.dr, 500 MG PO BID Prescribed by: RADHA RICHARDSON on 08/21/212027 Neomycin Garcia/Bacitrac Zn/Poly (Neosporin Ointment) 3.5 Mg-400 Unit-5,000 Unit/Gram Oint...g., 28.3 GM TP BID Prescribed by: RADHA RICHARDSON on 08/21/212027 Prednisone (Prednisone) 20 Mg Tab, 40 MG PO DAILY Prescribed by: GERONIMO PRUETT on 01/01/21 1359 Review of Systems Review of Systems Constitutional: see HPI EENTM: no symptoms reported Respiratory: no symptoms reported Cardiovascular: no symptoms reported Gastrointestinal: no symptoms reported Genitourinary: no symptoms reported : No Musculoskeletal: no symptoms reported Skin: pruritus, rash Psychiatric/Neurological: No Symptoms Reported All Other Systems Reviewed Negative Unless Noted: Yes Past Yomjbbr-Mnyyjw-Gbkdgb Hx Patient Social History Tobacco Use?: No Substance use?: No Alcohol Use?: Yes Alcohol Frequency: Rarely Immunizations Up To Date Tetanus Booster (TDap): Less than 5yrs PED Vaccines UTD: Yes First/Initial COVID19 Vaccinat: 2020 Second COVID19 Vaccination Ashok: UNKNOWN DATE Third COVID19 Vaccination Date: 2020 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 Seasonal Allergies Seasonal Allergies: No Past Medical History Surgeries: Yes (D&C X 1 ; WISDOM TEETH REMOVED;R SHOULDER SURGERY X 2-BICEPS TENDON/LABRUM) Gallbladder, Orthopedic Respiratory: No Cardiac: No Neurological: Yes Headaches /Migraines Last Menstrual Period: Oct 14, 2021 Reproductive Disorders: Yes Female Reproductive Disorders: Menstrual Problems, Polycystic Ovarian Dis Sexually Transmitted Disease: Yes (VAGINAL HERPES, NO TREATMENT) HIV/AIDS: No Genitourinary: No Gastrointestinal: No Musculoskeletal: Yes (RIGHT SHOULDER SURGERY X 2-BICEPS TENDON/LABRUM; CHRONIC R SHOULDER PAIN) Endocrine: Yes (INSULIN RESISTANCE; PCOS) Adrenal Disease HEENT: Yes (wears glasses) Hearing Impairment: Hard of Hearing Cancer: No Psychosocial: No Integumentary: Yes Herpes Blood Disorders: No Family Medical History FH: hepatitis 19 FATHER Hypertension 19 MOTHER Myocardial infarction MATERNAL GRANDFATHER PATERNAL UNCLE Physical Exam Vital Signs Vital Signs - First Documented 10/28/21 10:12 Temp 36.3 Pulse 112 Resp 16 B/P (MAP) 130/106 (114) Pulse Ox 99 O2 Delivery Room Air Capillary Refill : Less Than 3 Seconds General Appearance: WD/WN, no apparent distress HEENT: PERRL/EOMI, pharynx normal, other (No intraoral edema identified) Neck: supple, normal inspection Cardiovascular: regular rate, rhythm Respiratory: lungs clear, normal breath sounds, no respiratory distress, no accessory muscle use (No wheezes) Extremities: normal range of motion, non-tender, no pedal edema, normal capillary refill Neurologic/Psychiatric: alert, normal mood/affect, oriented x 3 Skin: normal color, warm/dry, other (Patchy areas of erythema to the left neck, bilateral forearms, anterior abdominal wall. No wheals or actual urticaria. The rash is macular.) Skin Problem Character: erythema, macules, patchy Progress/Results/Core Measures Results/Orders Vital Signs/I&O 10/28/21 10:12 Temp 36.3 Pulse 112 Resp 16 B/P (MAP) 130/106 (114) Pulse Ox 99 O2 Delivery Room Air Blood Pressure Mean: 114 Progress Progress Note : Time: 10:27 Progress Note Patient treated in the emergency department with loratadine, Pepcid and prednisone. Encourage ooxo-gpb-auhigqy Zyrtec/Gloria/Claritin of choice daily for the next week. Supplement with Benadryl for itching. Prednisone 50 mg daily for 5 days along with Pepcid twice daily. Return precautions provided. Patient verbalized understanding. All questions were sought and answered Departure Impression Primary Impression: Food allergic contact dermatitis Disposition: 01 HOME, SELF-CARE Condition: Improved Departure-Patient Inst. Decision time for Depature: 10:28 Referrals: ROJAS TYLER MD (PCP/Family) Primary Care Physician Patient Instructions: Contact Dermatitis (DC) Add. Discharge Instructions: Take an nxhm-tpp-vkkruor Zyrtec/Gloria/Claritin daily. You can supplement with 1-2 Benadryl tablets every 6 hours as needed for it cassie. Cool showers will also help with itching and inflammation. Take generic nbsl-ojt-vooysdl Pepcid twice daily for the next 5 days. You have been given a dose here in the emergency department this morning. Prednisone 50 mg once daily for the next 4 days starting tomorrow. If you develop any worsening rash, swelling or shortness of breath, mouth swelling/difficulty breathing or swallowing please come back to the emergency department for reevaluation. Follow-up with your primary care doctor as needed. Scripts Prednisone (Prednisone) 50 Mg Tab 50 MG PO DAILY, #4 TAB Prov: RALPH PATEL MD 10/28/21 Copy Copies To 1: ROJAS TYLER MD, KATHRYN M MD Oct 28, 2021 10:30
[2021-10-28 11:19] VITALS: BP 130/90
== END 2021-10-28 11:19 | disposition home or self-care (01) ==
LOC: EDUNIT# 10:04 → ER 10:05
DX: L23.6 Allergic contact dermatitis due to food in contact with the skin (principal); Z91.040 Latex allergy status
CPT/HCPCS: 99283

== ENCOUNTER 2022-01-20 17:55 | Emergency (ER) | payer MEDICAID ==
[~2022-01-20] VITALS: Ht 175.3 cm; Wt 97.5 kg
[~2022-01-20 17:55] MED LIST changes: +PRD50T PO
--- NOTE | 2022-01-20 18:29 | ED Headache ---
General Chief Complaint: Head/Cervical Problems Stated Complaint: CONCUSSION,HEADACHE,DIZZY,NAUSEA,BLURRY VISION Nursing Triage Note: PT AMB TO RM 8 WITH COMPLAINT OF HEADACHE THAT STARTED WEDNESDAY NIGHT. STATES IS GETTING WORSE AND IS NAUSEATED. STATES EVERYTHING IS BLURRY Source: patient Exam Limitations: no limitations History of Present Illness Date Seen by Provider: Jan 20, 2022 Time Seen by Provider: 18:10 Initial Comments Patient is a 31-year-old female with history of infrequent migraines who presents with prolonged headache with nausea fatigue and difficulty concentrating. Patient states that headache began this morning after waking. She states she has had headache throughout the day and felt nauseated without vomiting. She has taken bxjh-zqw-jvpzbfu medications without relief. Headache is posterior, throbbing moderate to severe worse with position change, light and sound stimulation. Headache did not start suddenly and gradually worsened over the past 4 to 6 hours. She denies neck stiffness, rash, fever. She does not have slurring of speech, extremity weakness or motor deficits. She has a history of irregular heartbeat, PCOS, depression and ADD. She denies alcohol and drug use. There are no burning appliances in the patient's home. She lives with her 4-year-old son. She denies any recent illnesses or symptoms or complaints Timing/Duration: 4-6 hours Severity/Quality: moderate Location: parietal Prior Headaches/Recent Trauma: other Associated Symptoms: other Allergies and Home Medications Allergies Coded Allergies: strawberry (Verified Allergy, Severe, 11/13/16) cyclobenzaprine (Verified Allergy, Unknown, 11/27/16) latex (Verified Allergy, Unknown, 05/20/14) acetaminophen (Verified Adverse Reaction, Unknown, CONFUSION, 05/21/14) butalbital (Verified Adverse Reaction, Unknown, CONFUSION, 05/21/14) Patient Home Medication List Home Medication List Reviewed: Yes Cephalexin (Cephalexin) 500 Mg Tablet, 500 MG PO QID Prescribed by: RADHA RICHARDSON on 08/21/212027 Ferrous Sulfate (Ferrous Sulfate) 325 Mg Tablet, 325 MG PO DAILY@0700 Prescribed by: EDIE SIFUENTES on 08/20/17 1120 Fluticasone Propionate (Flonase Allergy Relief) 9.9 Ml [place].susp, 9.9 ML NS PRN, (Reported) Entered as Reported by: CB LINDSEY on 03/27/17 0847 Ibuprofen (Ibu) 600 Mg Tablet, 600 MG PO Q6H Prescribed by: EDIE SIFUENTES on 08/20/17 1120 Multivitamin (Flintstones) 1 Each Tab.chew, 2 EACH PO DAILY, (Reported) Entered as Reported by: CB LINDSEY on 03/27/17 0846 Naproxen (Naproxen) 500 Mg Tablet.dr, 500 MG PO BID Prescribed by: RADHA RICHARDSON on 08/21/212027 Neomycin Garcia/Bacitrac Zn/Poly (Neosporin Ointment) 3.5 Mg-400 Unit-5,000 Unit/Gram Oint...g., 28.3 GM TP BID Prescribed by: RADHA RICHARDSON on 08/21/212027 Prednisone (Prednisone) 20 Mg Tab, 40 MG PO DAILY Prescribed by: GERONIMO PRUETT on 01/01/21 1359 Prednisone (Prednisone) 50 Mg Tab, 50 MG PO DAILY Prescribed by: RALPH PATEL on 10/28/21 1030 Review of Systems Review of Systems Constitutional: see HPI Eyes: See HPI Ears, Nose, Mouth, Throat: see HPI Respiratory: see HPI Cardiovascular: see HPI Gastrointestinal: see HPI Genitourinary: see HPI Musculoskeletal: see HPI Skin: see HPI Psychiatric/Neurological: See HPI All Other Systems Reviewed Negative Unless Noted: No Past Oybjoyx-Aawxpu-Ppspoj Hx Patient Social History Tobacco Use?: Yes Smoking Status: Current Someday Smoker Use of E-Cig and/or Vaping dev: No Substance use?: No Alcohol Use?: Yes Alcohol Frequency: Once in a while Pt feels they are or have been: No Immunizations Up To Date Tetanus Booster (TDap): Less than 5yrs PED Vaccines UTD: Yes First/Initial COVID19 Vaccinat: UNKNOWN DATE Second COVID19 Vaccination Ashok: UNKNOWN DATE Third COVID19 Vaccination Date: UNKNOWN DATE Seasonal Allergies Seasonal Allergies: No Past Medical History Surgeries: Yes (D&C X 1 ; WISDOM TEETH REMOVED;R SHOULDER SURGERY X 2-BICEPS TENDON/LABRUM) Gallbladder, Orthopedic Respiratory: No Cardiac: No Neurological: Yes Headaches /Migraines Reproductive Disorders: Yes Female Reproductive Disorders: Menstrual Problems, Polycystic Ovarian Dis Sexually Transmitted Disease: Yes (VAGINAL HERPES, NO TREATMENT) HIV/AIDS: No Genitourinary: No Gastrointestinal: No Musculoskeletal: Yes (RIGHT SHOULDER SURGERY X 2-BICEPS TENDON/LABRUM; CHRONIC R SHOULDER PAIN) Endocrine: Yes (INSULIN RESISTANCE; PCOS) Adrenal Disease HEENT: Yes (wears glasses) Hearing Impairment: Hard of Hearing Cancer: No Psychosocial: No Integumentary: Yes Herpes Blood Disorders: No Family Medical History FH: hepatitis 19 FATHER Hypertension 19 MOTHER Myocardial infarction MATERNAL GRANDFATHER PATERNAL UNCLE Physical Exam Vital Signs Vital Signs - First Documented 01/20/22 18:02 Temp 36.6 Pulse 120 Resp 22 B/P (MAP) 147/102 (117) Pulse Ox 96 O2 Delivery Room Air Capillary Refill : Less Than 3 Seconds Height, Weight, BMI Height: 5'9.00" Weight: 246lbs. 14.0oz. 111.795696ow; 31.00 BMI Method:Stated General Appearance: no apparent distress HEENT: PERRL/EOMI, normal ENT inspection, pharynx normal Neck: non-tender, full range of motion, supple, normal inspection Cardiovascular: tachycardia, other (Regular) Respiratory: lungs clear Gastrointestinal: non tender, soft Psychiatric: alert, oriented x 3, other (Difficulty concentrating, clear coherent speech) Coordination/Gait: normal finger to nose Motor/Sensory: no motor deficit, no sensory deficit Skin: normal color Progress/Results/Core Measures Results/Orders Lab Results Laboratory Tests Test 01/20/22 18:33 01/20/22 18:43 Range/Units White Blood Count 7.5 4.3-11.0 10^3/uL Red Blood Count 4.23 3.80-5.11 10^6/uL Hemoglobin 13.7 11.5-16.0 g/dL Hematocrit 40 35-52 % Mean Corpuscular Volume 95 80-99 fL Mean Corpuscular Hemoglobin 32 25-34 pg Mean Corpuscular Hemoglobin Concent 34 32-36 g/dL Red Cell Distribution Width 12.1 10.0-14.5 % Platelet Count 267 130-400 10^3/uL Mean Platelet Volume 10.6 9.0-12.2 fL Immature Granulocyte % (Auto) 0 % Neutrophils (%) (Auto) 53 42-75 % Lymphocytes (%) (Auto) 40 12-44 % Monocytes (%) (Auto) 6 0-12 % Eosinophils (%) (Auto) 1 0-10 % Basophils (%) (Auto) 1 0-10 % Neutrophils # (Auto) 3.9 1.8-7.8 10^3/uL Lymphocytes # (Auto) 3.0 1.0-4.0 10^3/uL Monocytes # (Auto) 0.5 0.0-1.0 10^3/uL Eosinophils # (Auto) 0.1 0.0-0.3 10^3/uL Basophils # (Auto) 0.0 0.0-0.1 10^3/uL Immature Granulocyte # (Auto) 0.0 0.0-0.1 10^3/uL Sodium Level 139 135-145 MMOL/L Potassium Level 3.7 3.6-5.0 MMOL/L Chloride Level 107 98-107 MMOL/L Carbon Dioxide Level 25 21-32 MMOL/L Anion Gap 7 5-14 MMOL/L Blood Urea Nitrogen 10 7-18 MG/DL Creatinine 0.78 0.60-1.30 MG/DL Estimat Glomerular Filtration Rate 105 BUN/Creatinine Ratio 13 Glucose Level 110 H 70-105 MG/DL Calcium Level 9.6 8.5-10.1 MG/DL Corrected Calcium 9.4 8.5-10.1 MG/DL Total Bilirubin 0.2 0.1-1.0 MG/DL Aspartate Amino Transf (AST/SGOT) 22 5-34 U/L Alanine Aminotransferase (ALT/SGPT) 34 0-55 U/L Alkaline Phosphatase 72 40-136 U/L Total Protein 7.3 6.4-8.2 GM/DL Albumin 4.3 3.2-4.5 GM/DL Urine Test NEGATIVE NEGATIVE Urine Opiates Screen NEGATIVE NEGATIVE Urine Oxycodone Screen NEGATIVE NEGATIVE Urine Methadone Screen NEGATIVE NEGATIVE Urine Propoxyphene Screen NEGATIVE NEGATIVE Urine Barbiturates Screen NEGATIVE NEGATIVE Ur Tricyclic Antidepressants Screen NEGATIVE NEGATIVE Urine Phencyclidine Screen NEGATIVE NEGATIVE Urine Amphetamines Screen NEGATIVE NEGATIVE Urine Methamphetamines Screen NEGATIVE NEGATIVE Urine Benzodiazepines Screen NEGATIVE NEGATIVE Urine Cocaine Screen NEGATIVE NEGATIVE Urine Cannabinoids Screen NEGATIVE NEGATIVE My Orders Orders - YENIFER THOMPSON DO Cbc With Automated Diff (01/20/22 18:21) Comprehensive Metabolic Panel (01/20/22 18:21) Drug Screen Stat (Urine) (01/20/22 18:21) Ct Head Wo (01/20/22 18:21) Ns Iv 1000 Ml (Sodium Chloride 0.9%) (01/20/22 18:30) Metoclopramide Injection (Reglan Injecti (01/20/22 18:30) Diphenhydramine Injection (Benadryl Inje (01/20/22 18:30) Prochlorperazine Injection (Compazine In (01/20/22 18:30) Labetalol Injection (Normodyne Injection (01/20/22 18:30) Hcg,Qualitative Urine (01/20/22 19:10) Ketorolac Injection (Toradol Injection) (01/20/22 20:00) Medications Given in ED Current Medications Medications Dose Ordered Sig/Joleen Route Start Time Stop Time Status Last Admin Dose Admin Diphenhydramine HCl 50 mg ONCE ONCE IM 01/20/22 18:30 01/20/22 18:31 DC 01/20/22 18:40 50 MG Labetalol HCl 20 mg ONCE ONCE IV 01/20/22 18:30 01/20/22 18:31 DC 01/20/22 18:42 20 MG Metoclopramide HCl 10 mg ONCE ONCE IVP 01/20/22 18:30 01/20/22 18:31 DC 01/20/22 18:42 10 MG Prochlorperazine Edisylate 10 mg ONCE ONCE IV 01/20/22 18:30 01/20/22 18:31 DC 01/20/22 18:41 10 MG Vital Signs/I&O 01/20/22 18:02 Temp 36.6 Pulse 120 Resp 22 B/P (MAP) 147/102 (117) Pulse Ox 96 O2 Delivery Room Air Blood Pressure Mean: 117 Departure Communication (Admissions) CT head: No acute disease Patient with atypical headache with history of frequent migraines. Headache is severe and not responding o home remedies. She denies drug and alcohol use. No recent illnesses. No familial history of subarachnoid hemorrhage. Headache was not sudden onset. CT head is negative. Neurologic exam is negative. Lab work is reassuring. Note, patient was hypertensive and tachycardic upon ED arrival, heart rate and blood pressure improved with labetalol, and migraine cocktail. Patient is resting comfortably and reports only mild headache prior to ED departure. Comfortable discharging the patient home with close follow-up with her PCP for reevaluation and further management of blood pressure. Return precautions reviewed. Patient verbalizes understanding agreement with discharge instructions prior to departure Impression Primary Impression: Headache Additional Impression: Labile blood pressure Disposition: HOME, SELF-CARE Condition: Stable Departure-Patient Inst. Decision time for Depature: 20:01 Referrals: ROJAS TYLER MD (PCP/Family) Primary Care Physician Patient Instructions: Headache, Adult (DC), High Blood Pressure Emergencies Add. Discharge Instructions: You were evaluated in the emergency department for headache and elevated blood pressure. CT imaging and lab work were performed and are nondiagnostic. The exact cause of your headache has not been determined, but may be caused from an elevation of your blood pressure. Please go home and rest, take Excedrin Migraine and Benadryl as needed if headache persists or returns. Follow-up with your PCP in 1 to 2 days for reevaluation of blood pressure and for further management. In the meantime if you develop new or worsening symptoms, return to the emergency department. All discharge instructions reviewed with patient and/or family. Voiced understanding. Work/School Note: Work Release Form Date Seen in the Emergency Department: Jan 20, 2022 Return to Work: Jan 21, 2022 Restrictions: No Restrictions YENIFER THOMPSON DO Jan 20, 2022 18:28
[2022-01-20] MEDS ORDERED: LABETALOL HCL 20 MG/4 ML VIAL IV ONE (18:30)
[2022-01-20] MEDS ORDERED: NS IV 1000 ML 1,000 ML IV SCH (18:30)
[2022-01-20] MEDS ORDERED: PROCHLORPERAZINE 10 MG/2ML INJ (COMPAZINE) IV ONE (18:30)
[2022-01-20] MEDS ORDERED: METOCLOPRAMIDE INJ 10 MG/2 ML (REGLAN) IVP ONE (18:30)
[2022-01-20] MEDS ORDERED: diphenhydrAMINE 50 MG/ML INJ (BENADRYL) IM ONE (18:30)
[2022-01-20 18:39] LABS: BASOPHILS % (AUTO) 1 % (0-10); EOSINOPHILS # (AUTO) 0.1 10^3/uL (0.0-0.3); EOSINOPHILS % (AUTO) 1 % (0-10); HEMATOCRIT 40 % (35-52); HEMOGLOBIN 13.7 g/dL (11.5-16.0); LYMPHOCYTES % (AUTO) 40 % (12-44); MEAN CORPUSCULAR HEMOGLOBIN 32 pg (25-34); MEAN CORPUSCULAR HGB CONC 34 g/dL (32-36); MEAN CORPUSCULAR VOLUME 95 fL (80-99); MEAN PLATELET VOLUME 10.6 fL (9.0-12.2); MONOCYTES # (AUTO) 0.5 10^3/uL (0.0-1.0); MONOCYTES % (AUTO) 6 % (0-12); NEUTROPHILS # (AUTO) 3.9 10^3/uL (1.8-7.8); NEUTROPHILS % (AUTO) 53 % (42-75); PLATELET COUNT 267 10^3/uL (130-400); WHITE BLOOD COUNT 7.5 10^3/uL (4.3-11.0)
[2022-01-20 18:51] LABS: ALBUMIN 4.3 GM/DL (3.2-4.5); POTASSIUM 3.7 MMOL/L (3.6-5.0)
[2022-01-20 18:52] LABS: CALCIUM 9.6 MG/DL (8.5-10.1)
[2022-01-20 18:54] LABS: TOTAL PROTEIN 7.3 GM/DL (6.4-8.2)
[2022-01-20 18:55] LABS: BILIRUBIN,TOTAL 0.2 MG/DL (0.1-1.0)
[2022-01-20 18:57] LABS: CREATININE SERUM 0.78 MG/DL (0.60-1.30)
[2022-01-20 19:02] LABS: AMPHETAMINE SCREEN, URINE NEGATIVE (NEGATIVE); BARBITURATE SCREEN URINE NEGATIVE (NEGATIVE); BENZODIAZEPINES SCREEN URINE NEGATIVE (NEGATIVE); CANNABINOID SCREEN, URINE NEGATIVE (NEGATIVE); COCAINE SCREEN URINE NEGATIVE (NEGATIVE); METHADONE STAT NEGATIVE (NEGATIVE); OPIATE SCREEN URINE NEGATIVE (NEGATIVE); OXYCODONE STAT NEGATIVE (NEGATIVE); PROPOXYPHENE STAT NEGATIVE (NEGATIVE); TRICYCLIC ANTIDEPRESSANTS SCRE NEGATIVE (NEGATIVE)
--- NOTE | 2022-01-20 19:30 | Diagnostic Imaging Report ---
PROCEDURE: CT head without contrast. TECHNIQUE: Multiple contiguous axial images were obtained through the brain without the use of intravenous contrast. Auto Exposure Controls were utilized during the CT exam to meet ALARA standards for radiation dose reduction. INDICATION: Worst headache of life. COMPARISON: 05/20/2014. FINDINGS: CT of the head demonstrates no evidence of an acute intracranial abnormality. There is no evidence of intracranial hemorrhage. Specifically, there are no findings of subarachnoid hemorrhage. There is no extra-axial fluid collection, mass effect or shift. Currie and white matter differentiation appear preserved. There is no abnormal hypodensity within the basal ganglia. The ventricles are appropriate in size and configuration. There is no evidence of hydrocephalus. The basilar cisterns are patent. The posterior fossa is unremarkable. Mastoids appear clear. There is some scattered mucosal thickening within the ethmoids and left sphenoid sinus. Orbital contents are unremarkable. There is no calvarial abnormality. IMPRESSION: 1. No CT evidence of an acute intracranial abnormality. No evidence of hemorrhage. 2. Mild paranasal sinus disease. Dictated by: Dictated on workstation # [id number]
[2022-01-20] MEDS ORDERED: KETOROLAC 30 MG/ML VIAL IVP ONE (20:00)
[2022-01-20 20:13] VITALS: BP 111/81
== END 2022-01-20 20:13 | disposition home or self-care (01) ==
LOC: EDUNIT# 17:55 → ER 17:58
DX: R51.9 Headache, unspecified (principal); R09.89 Other specified symptoms and signs involving the circulatory and respiratory systems; F17.200 Nicotine dependence, unspecified, uncomplicated; Z86.69 Personal history of other diseases of the nervous system and sense organs; Z91.040 Latex allergy status
CPT/HCPCS: 36415; 70450; 80053; 80306; 84703; 85025

== ENCOUNTER 2022-02-24 07:38 | Emergency (ER) | payer MEDICAID ==
[~2022-02-24] VITALS: Ht 175 cm; Wt 102.0 kg
[2022-02-24 07:48] VITALS: BP 139/101
--- NOTE | 2022-02-24 08:08 | ED Lower Extremity ---
General Chief Complaint: Lower Extremity Stated Complaint: RT ANKLE INJ Nursing Triage Note: ARRIVED VIA AMB TO ROOM 06 ET STATES ROLLED HER RIGHT ANKLE LAST NIGHT AT THE [place]. Source: patient Exam Limitations: no limitations (PRIYA SLADE) History of Present Illness Date Seen by Provider: Feb 24, 2022 Time Seen by Provider: 07:59 Initial Comments Patient is a 31 y/o F with history of plantar fasciitis who presents to the ER with CC of right ankle pain onset yesterday evening. She reports that she was helping lift a buggy into a truck for the parade last night when she "missed the curb" and landed on her right foot. She states that the top and lateral sides of her right ankle and foot have been swollen and red since then. States her pain is both sharp and sore and rates the pain as 7/10 at present. She states that any movement makes it worse. States bearing weight on the extremity makes it painful as well as trying to dorsiflex the right foot. The pain radiates into the distal right gonzalez. She has tried heat/ice, hydrocodone and Ibuprofen at home. States her last dose of Ibuprofen was at 6:20 this morning. Denies numbness or tingling at this time. Onset: yesterday Pain/Injury Location: right ankle Method of Injury: twisted Modifying Factors: Improves With Movement (PRIYA SLADE) Allergies and Home Medications Allergies Coded Allergies: strawberry (Verified Allergy, Severe, 11/13/16) cyclobenzaprine (Verified Allergy, Unknown, 11/27/16) latex (Verified Allergy, Unknown, 05/20/14) acetaminophen (Verified Adverse Reaction, Unknown, CONFUSION, 05/21/14) butalbital (Verified Adverse Reaction, Unknown, CONFUSION, 05/21/14) metformin (Verified Adverse Reaction, Unknown, NAUSEA, 02/24/22) Patient Home Medication List Home Medication List Reviewed: Yes (PRIYA SLADE) Home Medication List Reviewed: Yes (RALPH PATEL MD) Cephalexin (Cephalexin) 500 Mg Tablet, 500 MG PO QID Prescribed by: RADHA RICHARDSON on 08/21/212027 Ferrous Sulfate (Ferrous Sulfate) 325 Mg Tablet, 325 MG PO DAILY@0700 Prescribed by: EDIE SIFUENTES on 08/20/17 1120 Fluticasone Propionate (Flonase Allergy Relief) 9.9 Ml [place].susp, 9.9 ML NS PRN, (Reported) Entered as Reported by: CB LINDSEY on 03/27/17 0847 Hydrocodone/Acetaminophen (Hydrocodone-Acetamin 5-325 mg) 5 Mg-325 Mg Tablet, 1 TAB PO Q6H PRN for PAIN-MODERATE (5-7) Prescribed by: RALPH PATEL on 02/24/22 0859 Ibuprofen (Ibu) 600 Mg Tablet, 600 MG PO Q6H Prescribed by: EDIE SIFUENTES on 08/20/17 1120 Multivitamin (Flintstones) 1 Each Tab.chew, 2 EACH PO DAILY, (Reported) Entered as Reported by: CB LINDSEY on 03/27/17 0846 Naproxen (Naproxen) 500 Mg Tablet.dr, 500 MG PO BID Prescribed by: RADHA RICHARDSON on 08/21/212027 Neomycin Garcia/Bacitrac Zn/Poly (Neosporin Ointment) 3.5 Mg-400 Unit-5,000 Unit/Gram Oint...g., 28.3 GM TP BID Prescribed by: RADHA RICHARDSON on 08/21/212027 Prednisone (Prednisone) 20 Mg Tab, 40 MG PO DAILY Prescribed by: GERONIMO PRUETT on 01/01/21 1359 Prednisone (Prednisone) 50 Mg Tab, 50 MG PO DAILY Prescribed by: RALPH PATEL on 10/28/21 1030 Review of Systems Musculoskeletal: joint pain, joint swelling Psychiatric/Neurological: Denies Numbness, Denies Tingling (PRIYA SLADE) Constitutional: see HPI (RALPH PATEL MD) Past Ilpsanf-Vslctx-Vtemuk Hx Patient Social History Tobacco Use?: Yes Tobacco type used: Cigarettes Smoking Status: Current Everyday Smoker Substance use?: No Alcohol Use?: No (PRIYA SLADE) Immunizations Up To Date Tetanus Booster (TDap): Less than 5yrs PED Vaccines UTD: Yes First/Initial COVID19 Vaccinat: UNKNOWN DATE Second COVID19 Vaccination Ashok: UNKNOWN Third COVID19 Vaccination Date: UNKNOWN DATE COVID19 Vaccine Painter Bottom: KIM (PRIYA SLADE) Seasonal Allergies Seasonal Allergies: No (PRIYA SLADE) Past Medical History Surgeries: Yes (D&C X 1 ; WISDOM TEETH REMOVED;R SHOULDER SURGERY X 2-BICEPS TENDON/LABRUM) Gallbladder, Orthopedic Respiratory: No Cardiac: No Neurological: Yes Headaches /Migraines Last Menstrual Period: Feb 02, 2022 Reproductive Disorders: Yes Female Reproductive Disorders: Menstrual Problems, Polycystic Ovarian Dis Sexually Transmitted Disease: Yes (VAGINAL HERPES, NO TREATMENT) HIV/AIDS: No Genitourinary: No Gastrointestinal: No Musculoskeletal: Yes (RIGHT SHOULDER SURGERY X 2-BICEPS TENDON/LABRUM; CHRONIC R SHOULDER PAIN) Endocrine: Yes (INSULIN RESISTANCE; PCOS) Adrenal Disease HEENT: Yes (wears glasses) Hearing Impairment: Hard of Hearing Cancer: No Psychosocial: No Integumentary: Yes Herpes Blood Disorders: No (PRIYA SLADE) Family Medical History FH: hepatitis 19 FATHER Hypertension 19 MOTHER Myocardial infarction MATERNAL GRANDFATHER PATERNAL UNCLE Physical Exam Vital Signs Vital Signs - First Documented 02/24/22 07:48 Temp 36.0 Pulse 122 Resp 16 B/P (MAP) 139/101 (114) Pulse Ox 97 O2 Delivery Room Air (RALPH PATEL MD) Vital Signs Capillary Refill : Less Than 3 Seconds (PRIYA SLADE) Height, Weight, BMI Height: 5'9.00" Weight: 246lbs. 14.0oz. 111.112069lz; 33.00 BMI Method:Stated General Appearance: WD/WN, no apparent distress Cardiovascular: normal peripheral pulses, other (extremity capillary refill intact ) Knees: bilateral knee non-tender, bilateral knee normal inspection, bilateral knee normal range of motion, bilateral knee no evidence of injury Ankles: left ankle non-tender, left ankle normal inspection, left ankle normal range of motion, left ankle no evidence of injury; right ankle bone tenderness, right ankle ecchymosis (redness to dorsal and lateral aspect), right ankle limited range of motion (unable to dorsiflex or plantar flex ), right ankle pain, right ankle swelling (to dorsal and lateral aspect ) Neurologic/Tendon: normal sensation, responds to pain Neurologic/Psychiatric: no motor/sensory deficits, alert (PRIYA SLADE) Cardiovascular: regular rate, rhythm Skin: normal color, warm/dry (RALPH PATEL MD) Progress/Results/Core Measures Results/Orders My Orders Orders - RALPH PATEL MD Ankle, Right, 3 Views (02/24/22 08:15) Hydrocodone/Apap 7.5/325 Tab (Lortab 7. (02/24/22 08:15) Antacid Suspension (Mylanta Suspension (02/24/22 10:00) (RALPH PATEL MD) Medications Given in ED (RALPH PATEL MD) Vital Signs/I&O 02/24/22 07:48 Temp 36.0 Pulse 122 Resp 16 B/P (MAP) 139/101 (114) Pulse Ox 97 O2 Delivery Room Air (RALPH PATEL MD) Blood Pressure Mean: 114 Progress Progress Note : Time: 08:53 Progress Note Patient seen and examined by me I have reviewed medical student's documentation and agree. I performed my own independent HPI and physical exam.-year-old female with ankle pain after a twisting injury last evening. She is able to limp on the right foot. X-rays have been reviewed by me, there is a hint of lucency in the distal fibula. Will William wrap and give her crutches for toe-touch weightbearing as tolerated, she will likely need mary alice-rayed in 10 days to 2 weeks. Pain medicines for home. Elevation and ice. She has some additional scrapes but no significant injury. Findings and plan of care been communicated to patient. All questions are sought and answered. Patient is stable for discharge. (RALPH PATEL MD) Diagnostic Imaging Diagonstic Imaging: Xray Comments ankle xray: lucency right distal fibula, no displaced fracture. (interpreted by me) (RALPH PATEL MD) Departure Impression Primary Impression: Sprain and strain of ankle Disposition: 01 HOME, SELF-CARE Condition: Stable Departure-Patient Inst. Decision time for Depature: 08:56 (RALPH PATEL MD) Referrals: ROJAS TYLER MD (PCP/Family) Primary Care Physician Patient Instructions: Ankle Sprain ED Add. Discharge Instructions: Wear the william wrap for the next week for support. Use the crutches for balance, you can weight bear enough to keep your balance. Hydrocodone, 1 tablet eveyr 6 hours with an extra strength tylenol for pain. Alternate with 600mg Ibuprofen (3 tablets) with food every 6 hours. Elevate and Ice you right foot/ankle. Follow up with your primary care doctor in 1 week to 10 days for a repeat xray. Scripts Hydrocodone/Acetaminophen (Hydrocodone-Acetamin 5-325 mg) 5 Mg-325 Mg Tablet 1 TAB PO Q6H PRN for PAIN-MODERATE (5-7), #12 TAB Prov: RALPH PATEL MD 02/24/22 Work/School Note: Work Release Form Date Seen in the Emergency Department: Feb 24, 2022 Return to Work: Feb 25, 2022 Verification and Attestation of Medical Student E/M Service A medical student performed and documented this service in my presence. I reviewed and verified all information documented by the medical student and made modifications to such information, when appropriate. I personally performed the physical exam and medical decision making. Ralph Patel, Feb 25, 2022,06:40 (RALPH PATEL MD) Copy Copies To 1: ROJAS TYLER MD, NATASHA Feb 24, 2022 08:08 RALPH PATEL MD Feb 24, 2022 08:59
[2022-02-24] MEDS ORDERED: HYDROcodone/APAP 7.5 MG/325 MG (LORTAB, LORCET PLUS) TABLET PO ONE (08:15)
[2022-02-24] MEDS ORDERED: ACHD5005 PO (08:58)
--- NOTE | 2022-02-24 09:03 | Diagnostic Imaging Report ---
INDICATION: Pain, twisted ankle COMPARISON: 08/15/2019 TECHNIQUE: 3 radiographs of the right ankle dated 02/24/2022 FINDINGS: No acute fracture or dislocation. No destructive osseous process. The talar dome is unremarkable. Ankle mortise is symmetric. Small plantar calcaneal enthesophyte is again noted. No suspicious radiopaque foreign body. IMPRESSION: No acute osseous abnormality. Dictated by: Dictated on workstation # [id number]
[2022-02-24] MEDS ORDERED: ANTACID SUSP 30 ML UDC (MYLANTA) PO ONE (10:00)
== END 2022-02-24 10:22 | disposition home or self-care (01) ==
LOC: EDUNIT# 07:38 → ER 07:40
DX: S96.911A Strain of unspecified muscle and tendon at ankle and foot level, right foot, initial encounter (principal); F17.210 Nicotine dependence, cigarettes, uncomplicated; Z91.040 Latex allergy status; Z88.6 Allergy status to analgesic agent; X50.1XXA Overexertion from prolonged static or awkward postures, initial encounter
CPT/HCPCS: 73610

== ENCOUNTER → 2022-03-09 | Outpatient (CLI) | payer MEDICAID ==
[~2022-03-09] MED LIST changes: +ACHD5005 PO
== END ==
LOC: CARD 08:54
PROVIDERS: ATTEND Family Medicine
DX: R00.0 Tachycardia, unspecified (principal); R07.89 Other chest pain
CPT/HCPCS: 93225; 93226